=== PATIENT | female | born 1960 | race Caucasian/White ===

== ENCOUNTER 2018-12-11 02:58 | Emergency (ER) | payer SELFPAY ==
[2018-12-11] MEDS ORDERED: PREDNISONE 20 MG TABLET PO ONE (04:20)
[2018-12-11] MEDS ORDERED: IPRATROPIUM/ALBUTEROL 0.5-2.5 MG/3 ML AMPUL NEB ONE (04:20)
[2018-12-11 04:53] LABS: APPEARANCE,URINE CLOUDY; BILIRUBIN,URINE NEGATIVE (NEGATIVE); COLOR,URINE YELLOW; GLUCOSE, URINE NEGATIVE (NEGATIVE); KETONES,URINE NEGATIVE (NEGATIVE); LEUKOCYTE ESTERASE,URINE NEGATIVE (NEGATIVE); NITRITE,URINE NEGATIVE (NEGATIVE); PROTEIN,URINE NEGATIVE (NEGATIVE); URINE SPECIFIC GRAVITY 1.009; UROBILINOGEN,URINE NEGATIVE mg/dL (<2.0)
--- NOTE | 2018-12-11 04:58 | RADIOLOGY REPORT (SQ) ---
EXAM DESCRIPTION: X-ray two view chest. CLINICAL HISTORY: 58 years Female, sob COMPARISON: None. TECHNIQUE: PA and Lateral views of the chest performed on 12/11/2018 at 4:41 AM FINDINGS: The lungs are well expanded and are clear. The costophrenic sulci are clear. There is no evidence of a pneumothorax. The cardiac silhouette is normal in size. The mediastinal contours are normal. No acute osseous abnormalities are identified. No focal soft tissue abnormalities are identified. IMPRESSION: No evidence of acute intrathoracic disease.
[2018-12-11] MEDS ORDERED: DOXYCYCLINE HYCLATE 100 MG TABLET PO ONE ×2 (06:39→07:01)
--- NOTE | 2018-12-11 06:46 | ER Document Report ---
ED General - General Chief Complaint: Shortness Of Breath Stated Complaint: DIFFICULTY BREATHING Time Seen by Provider: 12/11/18 04:20 Notes: Patient is a 58-year-old female presents to the emergency department for generalized cough, congestion, increased shortness of breath for the last couple of days. Patient states she does have asthma and COPD. States she ran out of her albuterol inhaler about 5 days ago. Patient states she also typically is on oxygen at home only at night 1 L/min. States she ran out of oxygen. Patient states she recently moved to the area and does not have a primary care provider. Patient is also complaining of generalized lower back pain. Patient states when she has lower back pain she typically has a urinary tract infection. Patient is denying any abdominal pain, nausea, vomiting, fevers, chest pain. TRAVEL OUTSIDE OF THE [place] IN LAST 30 DAYS: No - Related Data Allergies/Adverse Reactions: citalopram Allergy (Verified 12/11/18 04:25) fexofenadine [From Kiara] Allergy (Verified 12/11/18 04:25) trazodone Allergy (Verified 12/11/18 04:25) Past Medical History - General Information source: Patient - Social History Smoking Status: Current Some Day Smoker Frequency of alcohol use: Occasional Drug Abuse: None Family History: Reviewed & Not Pertinent Patient has suicidal ideation: No Patient has homicidal ideation: No Pulmonary Medical History: Reports: Hx Asthma, Hx COPD Renal/ Medical History: Denies: Hx Peritoneal Dialysis Review of Systems - Review of Systems Constitutional: denies: Fever EENT: See HPI Cardiovascular: See HPI Respiratory: See HPI Gastrointestinal: No symptoms reported Genitourinary: denies: Burning, Dysuria, Frequency Female Genitourinary: No symptoms reported Musculoskeletal: See HPI Skin: No symptoms reported Hematologic/Lymphatic: No symptoms reported Neurological/Psychological: No symptoms reported Physical Exam - Vital signs Vitals: Temp Pulse Resp BP Pulse Ox 97.8 F 66 22 H 104/60 92 12/11/18 03:11 12/11/18 03:11 12/11/18 03:11 12/11/18 03:11 12/11/18 03:11 - Notes Notes: GENERAL: Alert, interacts well. No acute distress. HEAD: Normocephalic, atraumatic. EYES: Pupils equal, round, and reactive to light. Extraocular movements intact. ENT: Oral mucosa moist, tongue midline. Nares patent, TM's intact, nonerythematous, nonbulging bilaterally. Pharynx within normal limits, no palatal petechiae noted NECK: Full range of motion. Supple. Trachea midline. No lymphadenopathy appreciated LUNGS: Clear to auscultation bilaterally apices, no discernible wheezes, rales, or rhonchi. Bilateral bases diminished scant expiratory wheeze noted bilaterally. No respiratory distress. 96% on room air HEART: Regular rate and rhythm. No murmur ABDOMEN: Soft, non-tender. Non-distended. Bowel sounds present in all 4 quadrants. EXTREMITIES: Moves all 4 extremities spontaneously. No edema, normal radial and dorsalis pedis pulses bilaterally. No cyanosis. BACK: no cervical, thoracic, lumbar midline tenderness. No saddle anesthesia, normal distal neurovascular exam. No CVA tenderness noted bilaterally NEUROLOGICAL: Alert and oriented x3. Normal speech. cranial nerves II through XII grossly intact PSYCH: Normal affect, normal mood. SKIN: Warm, dry, normal turgor. No rashes or lesions noted. Course - Re-evaluation Re-evalutation: 12/11/18 06:45 Chest X-Ray 12/11/18 04:20 IMPRESSION: No evidence of acute intrathoracic disease. Laboratory 12/11/18 04:19 Urine Color YELLOW Urine Appearance CLOUDY Urine pH 6.0 Ur Specific [place] 1.009 Urine Protein NEGATIVE Urine Glucose (UA) NEGATIVE Urine Ketones NEGATIVE Urine Blood NEGATIVE Urine Nitrite NEGATIVE Urine Bilirubin NEGATIVE Urine Urobilinogen NEGATIVE Ur Leukocyte Esterase NEGATIVE Urine WBC (Auto) 5 Urine RBC (Auto) 1 U Hyaline Cast (Auto) 1 Urine Bacteria (Auto) TRACE Squamous Epi Cells Auto 7 Urine Mucus (Auto) RARE Urine Ascorbic Acid NEGATIVE Patient's urine shows no signs of infection. Patient's chest x-ray shows no signs of pneumonia, pneumothorax, rib fracture. Patient states she overall feels a lot better after breathing treatments in the emergency department. Discussed use of albuterol, steroids, antibiotics for continued care. Discussed following up with [facility] or [facility] until her insurance comes through. Patient voices understanding, stable for discharge - Vital Signs Vital signs: Temp Pulse Resp BP Pulse Ox 97.8 F 66 16 99/57 L 95 12/11/18 03:11 12/11/18 03:11 12/11/18 06:02 12/11/18 06:02 12/11/18 06:02 Discharge - Discharge Clinical Impression: COPD exacerbation Condition: Stable Disposition: HOME, SELF-CARE Instructions: Chronic Obstructive Lung Disease ([facility]) Additional Instructions: As we discussed you have been seen and treated in the emergency department for an exacerbation of your COPD. Due to your history of lung infections I am going to treat with antibiotics. Please also make sure you take your albuterol as prescribed. Please also make sure you take steroids as prescribed. Your urine shows no signs of infection. Please make sure you stay well-hydrated. Please make sure you follow-up with a primary care provider or [facility] for continued care. Please return to the emergency room for any other concerns. Prescriptions: Albuterol Sulfate [Proair HFA Inhalation Aerosol 8.5 gm MDI] 2 puff IH Q4H PRN #1 mdi PRN Reason: Doxycycline Hyclate 100 mg PO BID #14 capsule Prednisone [Deltasone 20 mg Tablet] 3 tab PO DAILY 5 Days tablet Forms: Smoking Cessation Education Referrals: [facility] [Provider Group] - Follow up as needed [facility] [Provider Group] - Follow up as needed ZACHERY JALLOH MD [ACTIVE STAFF] - Follow up as needed
[2018-12-11 07:09] VITALS: BP 107/72
--- NOTE | 2018-12-11 19:25 | EKG REPORT ---
SEVERITY:- NORMAL ECG - SINUS RHYTHM : Confirmed by: Fabi Ybarra MD 11-Dec-2018 19:24:48
== END 2018-12-11 07:24 | disposition home or self-care (01) ==
LOC: ER 02:58
DX: J44.1 Chronic obstructive pulmonary disease with (acute) exacerbation (principal); T48.6X6A Underdosing of antiasthmatics, initial encounter; T41.5X6A Underdosing of therapeutic gases, initial encounter; Z91.128 Patient's intentional underdosing of medication regimen for other reason; Z91.14 Patient's other noncompliance with medication regimen; R05 Cough; R06.02 Shortness of breath; M54.5 Low back pain; F17.200 Nicotine dependence, unspecified, uncomplicated; Z87.440 Personal history of urinary (tract) infections; Z88.1 Allergy status to other antibiotic agents; Z88.8 Allergy status to other drugs, medicaments and biological substances
CPT/HCPCS: 93005; 94640; 99285; 87086; 81001; 71046; 93010; J7512; J7620

== ENCOUNTER → 2019-11-22 | Outpatient (CLI) | payer MEDICARE, MEDICAID ==
[2019-11-22 13:25] VITALS: BP 110/51
--- NOTE | 2019-11-22 13:25 | ER RDC ASSESSMENT REPORT ---
Intake - In the Last 14 days Have you traveled outside [place]?: No Have you been in close contact with someone CONFIRMED: No Worked in Healthcare?: No - Symptoms Subjective Fever(Douglas feverish): No Chills: No Muscule Aches: Yes Runny Nose: Yes Sore Throat: Yes Cough (New or worsening chronic cough): Yes Shortness of breath: Yes Nausea or Vomiting: No Headache: No Abdominal Pain: No Diarrhea(3 or more loose stools in last 24 hours): No - Do you have any of the following Chronic lung disease: Asthma or emphysema or COPD: Yes Chronic Lung Disease Comment: History of COPD Cystic Fibrosis: No Diabetes: No High Blood Pressure: No Cardiovascular Disease: No Chronic Kidney Disease: No Chronic Liver Disease: No Chronic blood disorder like Sickle Cell Disease: No Weak immune system due to disease or medication: No Neurologic condition that limits movement: No Developmental delay - Moderate to Severe: No Recent (within past 2 weeks) or current : No --If current: Trimester: 2nd Morbid Obesity (>100 pounds over ideal weight): No Obesity Comment: Height 5 feet 4 inches weight 149 pounds Other Comment: History of depression - Objective Temperature: 97.4 F Pulse Rate: 79 Respiratory Rate: 20 Blood Pressure: 110/51 O2 Sat by Pulse Oximetry: 93 Objective: Given above, testing performed: If Testing Performed: Test Specimen Type Sent to General - General Information source: Patient Notes: Patient here at [facility] for COVID testing. reports sent for screening per computer systems software architect. Patient has been treated for recent exacerbation of COPD and the last few days has been on prednisone which has improved breathing. Respiratory illness symptoms started November 07. reports computer systems software architect won't see patient in office until tested. - Related Data Allergies/Adverse Reactions: citalopram Allergy (Verified 12/11/18 04:25) fexofenadine [From Kiara] Allergy (Verified 12/11/18 04:25) trazodone Allergy (Verified 12/11/18 04:25) Past Medical History - Social History Smoking Status: Former Smoker - Reports has recently stopped and asked how much reports'" Not that much" Family History: Reviewed & Not Pertinent Pulmonary Medical History: Reports: Hx Asthma, Hx COPD Renal/ Medical History: Denies: Hx Peritoneal Dialysis Physical Exam - General General appearance: Appears well, Alert In distress: None Notes: PHYSICAL EXAMINATION: GENERAL: Well-appearing and in no acute distress. HEAD: Atraumatic, normocephalic. EYES: sclera anicteric, conjunctiva are normal. ENT: nares patent. Moist mucous membranes. NECK: Normal range of motion, supple without lymphadenopathy LUNGS: CTAB and equal. No wheezes rales or rhonchi. Resp even and unlabored. Lung sounds clear. HEART: Regular rate and rhythm without murmurs ABDOMEN: Soft, nontender, normal bowel sounds, no guarding. EXTREMITIES: No cyanosis. NEUROLOGICAL: Normal speech. PSYCH: Normal mood, normal affect. SKIN: Warm, Dry, normal turgor, Diagnostic Results Laboratory Results: Patient instructed on negative rapid strep and negative rapid flu. Pending strep culture. Pending COVID testing results. Patient provided instructions regarding COVID to include: As a person under investigation for Covid 19, the [facility], division of public health advises you to adhere to the following guidance until your test results are reported to you. If your test result is positive, you will receive additional information from your provider and your local health department at that time. Remain at home until you are cleared by the health provider or public health authorities. Keep a log of visitors to your home, notify any visitors to your home of your is olation status. If you plan to move to a new address or leave the count includes the [facility], notify the local health department in your [facility]. Call your doctor or seek care if you have an urgent medical need. Before seeking medical care, call ahead to get instructions from the provider before arriving at the medical office clinic or hospital. Notify them that you are being tested for the virus that causes Covid 19 so that arrangements can be made, as necessary, to prevent transmission to others in the healthcare setting. Next, notify the local health department in your county. If a medical emergency arises and you need to call 911, inform the first responders that you are being tested for the virus that causes Covid 19. Next, notify the local health department in your county. Patient Education/Counseling Counseling/Education: Patient presents with upper respiratory symptoms worrisome for possible Covid 19. Patient does not have emergency worring symptoms such as difficulty breathing, shortness of breath, chest pain, pressure, confusion or cyanosis. Patient appears suitable for discharge. Patient instructed to follow up with PCP today. Instructed to go to ED for persistent or worsening symptoms. Patient's vital signs are stable and patient is nontoxic in appearance. Good return precautions have been discussed with patient, patient verbalized understanding and is agreeable with discharge plan of care at this time. RDC Discharge - Discharge Clinical Impression: COVID - 19 SCREENING Upper respiratory infection Qualifiers: URI type: unspecified URI Qualified Code(s): J06.9 - Acute upper respiratory infection, unspecified Condition: Stable Disposition: Home; Selfcare
[2019-11-22 14:46] LABS: A TYPE INFLUENZA AG NEGATIVE (NEGATIVE); B INFLUENZA AG NEGATIVE (NEGATIVE)
== END ==
LOC: RDC 12:42
PROVIDERS: ATTEND Nurse Practitioner Family
DX: Z20.828 Contact with and (suspected) exposure to other viral communicable diseases (principal); J06.9 Acute upper respiratory infection, unspecified; J02.9 Acute pharyngitis, unspecified; R06.02 Shortness of breath; R05 Cough; M79.10 Myalgia, unspecified site; R09.89 Other specified symptoms and signs involving the circulatory and respiratory systems; J44.9 Chronic obstructive pulmonary disease, unspecified; Z88.8 Allergy status to other drugs, medicaments and biological substances; Z87.891 Personal history of nicotine dependence
CPT/HCPCS: 87070; 87880; 87804; U0003; 87635; 99211

== ENCOUNTER 2019-12-08 01:29 | Inpatient (IN) | payer MEDICARE, MEDICAID ==
[2019-12-08 03:41] LABS: APPEARANCE,URINE SLIGHTLY-CLOUDY; BILIRUBIN,URINE NEGATIVE (NEGATIVE); COLOR,URINE YELLOW; GLUCOSE, URINE NEGATIVE (NEGATIVE); KETONES,URINE NEGATIVE (NEGATIVE); LEUKOCYTE ESTERASE,URINE LARGE (NEGATIVE); NITRITE,URINE NEGATIVE (NEGATIVE); PROTEIN,URINE NEGATIVE (NEGATIVE); URINE SPECIFIC GRAVITY 1.002; UROBILINOGEN,URINE NEGATIVE mg/dL (<2.0)
[2019-12-08 03:47] LABS: ABSOLUTE BASOPHILS # (AUTO) 0.1 10^3/uL (0.0-0.2); ABSOLUTE EOSINOPHILS # (AUTO) 0.3 10^3/uL (0.0-0.6); ABSOLUTE LYMPHOCYTES (AUTO) 2.2 10^3/uL (0.5-4.7); ABSOLUTE MONOCYTES (AUTO) 0.6 10^3/uL (0.1-1.4); ABSOLUTE NEUT (AUTO) 7.7 10^3/uL (1.7-8.2); BASOPHILS % (AUTO) 0.8 % (0-2); EOSINOPHILS % (AUTO) 2.5 % (0-6); HEMATOCRIT 51.6 % (36.0-47.0); HEMOGLOBIN 17.7 g/dL (12.0-15.5); LYMPHOCYTES % (AUTO) 20.7 % (13-45); MEAN CORPUSCULAR HGB CONC 34.3 g/dL (32.0-36.0); MEAN CORPUSCULAR VOLUME 90 fl (80-97); MONOCYTES % (AUTO) 5.2 % (3-13); PLATELET COUNT 300 10^3/uL (150-450); RED BLOOD COUNT 5.71 10^6/uL (3.72-5.28); RED CELL DISTRIBUTION WIDTH 13.9 % (11.5-14.0); SEGMENTED NEUTROPHILS % (AUTO) 70.8 % (42-78); TOTAL CELLS COUNTED % (AUTO) 100 %; WHITE BLOOD COUNT 10.8 10^3/uL (4.0-10.5)
[2019-12-08 03:59] LABS: ALBUMIN 4.5 g/dL (3.5-5.0); ALKALINE PHOSPHATASE 77 U/L (38-126); ANION GAP 10 (5-19); ASPARTATE AMINO TRANSFERASE 27 U/L (14-36); BILIRUBIN,TOTAL 0.4 mg/dL (0.2-1.3); BLOOD UREA NITROGEN 9 mg/dL (7-20); CALCIUM 9.2 mg/dL (8.4-10.2); CARBON DIOXIDE 28 mmol/L (22-30); CHLORIDE 101 mmol/L (98-107); CREATINE KINASE 241 U/L (30-135); GLUCOSE 84 mg/dL (75-110); POTASSIUM 4.6 mmol/L (3.6-5.0); TOTAL PROTEIN 7.2 g/dL (6.3-8.2)
[2019-12-08 04:11] LABS: CREATINE KINASE MB 3.71 ng/mL (<4.55)
[2019-12-08 04:17] LABS: TROPONIN I < 0.012 ng/mL
[2019-12-08] MEDS ORDERED: CEFTRIAXONE 1 GM/D5W RTU 1 GM/50 ML RTUPB IV ONE (06:45)
[2019-12-08] MEDS ORDERED: NORMAL SALINE 1000 ML 1,000 ML IV ONE (06:45)
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
--- NOTE | 2019-12-08 07:21 | EKG REPORT ---
SEVERITY:- BORDERLINE ECG - SINUS RHYTHM WITHIN NORMAL LIMITS : Confirmed by: Maciel Martínez MD 08-Dec-2019 07:20:53
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
--- NOTE | 2019-12-08 08:26 | RADIOLOGY REPORT (SQ) ---
EXAM DESCRIPTION: CHEST SINGLE VIEW IMAGES COMPLETED DATE/TIME: 12/08/2019 8:06 am REASON FOR STUDY: cough COMPARISON: PA and lateral views of the chest from 12/11/2018. EXAM PARAMETERS: NUMBER OF VIEWS: One view. TECHNIQUE: An AP view of the chest was obtained. RADIATION DOSE: NA LIMITATIONS: None. FINDINGS: LUNGS AND PLEURA: No consolidation, pleural effusion or pneumothorax. MEDIASTINUM AND HILAR STRUCTURES: No mediastinal or hilar contour abnormality. HEART AND VASCULAR STRUCTURES: The cardiac silhouette and pulmonary vasculature are within normal blakely its. BONES: No acute findings. HARDWARE: None in the chest. OTHER: No other finding. IMPRESSION: No acute cardiopulmonary process. TECHNICAL DOCUMENTATION: JOB ID: [id number] 2010 [employer]- All Rights Reserved Reading location - IP/workstation name: [email or web address]
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
[2019-12-08] MEDS ORDERED: AZITHROMYCIN 250 MG TABLET PO ONE (09:25)
[2019-12-08] MEDS ORDERED: METHYLPREDNISOLONE INJ 125 MG/2 ML SDV IV ONE (09:25)
[2019-12-08] MEDS ORDERED: ALBUTEROL SULFATE 0.083% NEB 2.5 MG/3 ML AMPUL NEB ONE (09:30)
[2019-12-08] MEDS ORDERED: MORPHINE SULFATE 10 MG/ML INJ IV ONE (10:22)
[2019-12-08] MEDS ORDERED: PROMETHAZINE HCL INJ 25 MG/1 ML VIAL IV PRN (12:41)
[2019-12-08] MEDS ORDERED: MAG HYDROX/AL HYDROX/SIMETH SUSP 30 ML UDCUP PO PRN (12:41)
[2019-12-08] MEDS ORDERED: ALBUTEROL SULFATE 0.083% NEB 2.5 MG/3 ML AMPUL NEB PRN (12:41)
[2019-12-08] MEDS ORDERED: DOCUSATE SODIUM 100 MG CAPSULE PO PRN (12:41)
[2019-12-08] MEDS ORDERED: MAGNESIUM HYDROXIDE SUSP 30 ML UDCUP PO PRN (12:41)
[2019-12-08] MEDS ORDERED: LORAZEPAM INJ 2 MG/1 ML VIAL IV PRN (12:49)
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
[2019-12-08] MEDS: IPRATROPIUM/ALBUTEROL 0.5-2.5 MG/3 ML AMPUL NEB SCH ×2 (14:22→20:38)
[2019-12-08] MEDS: ACETAMINOPHEN 325 MG TABLET PO PRN (14:30)
[2019-12-08] MEDS ORDERED: CITALOPRAM HYDROBROMIDE 20 MG TABLET PO SCH (15:00)
[2019-12-08] MEDS: CLOTRIMAZOLE/BETAMETHASONE DIP CREAM 15 GM TOP SCH (17:07)
[2019-12-08] MEDS: OXYBUTYNIN CHLORIDE 5 MG TABLET PO SCH (17:07)
[2019-12-08] MEDS: KETOROLAC TROMETHAMINE INJ/PF 30 MG/1 ML SDV IV PRN (19:49)
[2019-12-08] MEDS: BUDESONIDE NEB 0.5 MG/2 ML AMPUL NEB SCH (20:38)
[2019-12-08] MEDS: DOXYCYCLINE HYCLATE 100 MG TABLET PO SCH (21:03)
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
[2019-12-08] MEDS ORDERED: TRAZODONE HCL 50 MG TABLET PO SCH (22:00)
[2019-12-08] MEDS ORDERED: DIVALPROEX SODIUM 250 MG TAB.SR.24H PO ONE (23:00)
[2019-12-08] MEDS ORDERED: BUSPIRONE HCL 10 MG TABLET PO ONE (23:15)
[2019-12-08] MEDS ORDERED: TRAZODONE HCL 50 MG TABLET PO PRN (23:30)
[2019-12-09] MEDS: ACETAMINOPHEN 325 MG TABLET PO PRN ×2 (00:23→13:28)
[2019-12-09] MEDS: IPRATROPIUM/ALBUTEROL 0.5-2.5 MG/3 ML AMPUL NEB SCH ×2 (02:43→07:47)
[2019-12-09] MEDS: KETOROLAC TROMETHAMINE INJ/PF 30 MG/1 ML SDV IV PRN ×2 (05:27→13:29)
[2019-12-09 05:32] LABS: ABSOLUTE MONOCYTES (AUTO) 0.6 10^3/uL (0.1-1.4); ABSOLUTE NEUT (AUTO) 11.6 10^3/uL (1.7-8.2); BASOPHILS % (AUTO) 0.3 % (0-2); HEMOGLOBIN 14.8 g/dL (12.0-15.5); LYMPHOCYTES % (AUTO) 7.3 % (13-45); MEAN CORPUSCULAR HEMOGLOBIN 30.8 pg (27.0-33.4); MEAN CORPUSCULAR HGB CONC 33.7 g/dL (32.0-36.0); MEAN CORPUSCULAR VOLUME 92 fl (80-97); MONOCYTES % (AUTO) 4.2 % (3-13); PLATELET COUNT 239 10^3/uL (150-450); RED BLOOD COUNT 4.81 10^6/uL (3.72-5.28); RED CELL DISTRIBUTION WIDTH 13.7 % (11.5-14.0); SEGMENTED NEUTROPHILS % (AUTO) 88.2 % (42-78); TOTAL CELLS COUNTED % (AUTO) 100 %; WHITE BLOOD COUNT 13.2 10^3/uL (4.0-10.5)
[2019-12-09 05:55] LABS: ANION GAP 8 (5-19); BLOOD UREA NITROGEN 19 mg/dL (7-20); CALCIUM 8.8 mg/dL (8.4-10.2); CARBON DIOXIDE 25 mmol/L (22-30); CHLORIDE 104 mmol/L (98-107); CHOLESTEROL 162.85 mg/dL (0-200); GLUCOSE 151 mg/dL (75-110); POTASSIUM 4.5 mmol/L (3.6-5.0); TRIGLYCERIDES 62 mg/dL (<150)
[2019-12-09] MEDS ORDERED: PANTOPRAZOLE SODIUM 40 MG TABLET.DR PO SCH (06:00)
[2019-12-09 06:05] LABS: DIRECT LDL 81 mg/dL (<100)
[2019-12-09] MEDS: BUDESONIDE NEB 0.5 MG/2 ML AMPUL NEB SCH (07:48)
[2019-12-09] MEDS: DOXYCYCLINE HYCLATE 100 MG TABLET PO SCH (09:32)
[2019-12-09] MEDS: OXYBUTYNIN CHLORIDE 5 MG TABLET PO SCH ×2 (09:32→17:16)
[2019-12-09] MEDS: CLOTRIMAZOLE/BETAMETHASONE DIP CREAM 15 GM TOP SCH ×2 (09:32→17:14)
[2019-12-09] MEDS: DIVALPROEX SODIUM 250 MG TAB.SR.24H PO SCH ×2 (09:32→17:16)
[2019-12-09] MEDS: BUSPIRONE HCL 10 MG TABLET PO SCH ×2 (09:32→17:13)
[2019-12-09] MEDS ORDERED: CEFTRIAXONE 1 GM/D5W RTU 1 GM/50 ML RTUPB IV SCH (10:00)
[2019-12-09] MEDS ORDERED: CITALOPRAM HYDROBROMIDE 20 MG TABLET PO SCH (10:00)
[2019-12-09] MEDS ORDERED: ENOXAPARIN SODIUM INJ 40 MG/0.4 ML DISP.SYRIN SUBCUT SCH (10:00)
[2019-12-09] MEDS ORDERED: (PENDING PHARMACY ID) (Citalopram Hydrobromide [Citalopram Hbr] 40 MG) PO SCH (10:00)
[2019-12-09] MEDS ORDERED: IPRATROPIUM/ALBUTEROL 0.5-2.5 MG/3 ML AMPUL NEB PRN (11:50)
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
[2019-12-09] MEDS ORDERED: FLUTICASONE/UMECLIDIN/VILANTER 100-62.5-25 MCG/DOSE IH SCH (13:00)
[2019-12-09] MEDS ORDERED: IPRATROPIUM/ALBUTEROL 0.5-2.5 MG/3 ML AMPUL NEB ONE (15:56)
[2019-12-09 17:18] VITALS: BP 125/69
--- NOTE | 2019-12-09 20:01 | Left Against Medical Advice ---
Against Medical Advice Admission Date/Time: 12/08/19 09:58 Primary Care Provider: SHERLYN CARTY MD Date of Patient Emigration: 12/09/19 - Summary: Summary: Please see Admission and Progress Notes as well. FLORA CUELLAR is a 59 F, who LEFT AGAINST MEDICAL ADVICE. The Patient was admitted on 12/08/19 09:58. I was contacted by her nurse that the patient was ready to leave AMA at 19:59 on 12/09/2019. The patient's vital signs were stable and she was determined to leave due to her being upset over changes in her medications. She was advised that she was leaving AGAINST MEDICAL ADVICE and assume the risks and responsibilities for such. Patient signed the hospital AMA discharge form.
== END 2019-12-09 20:40 | disposition left against medical advice (07) | DRG 190 ==
LOC: ER 01:29 → EH 09:58 → 4W 11:11 → 4S 12-09 18:41
PROVIDERS: ADMIT Hospitalist; ATTEND Hospitalist
DX: J44.1 Chronic obstructive pulmonary disease with (acute) exacerbation (principal); J96.21 Acute and chronic respiratory failure with hypoxia; N30.00 Acute cystitis without hematuria; F41.8 Other specified anxiety disorders; B35.3 Tinea pedis; F31.9 Bipolar disorder, unspecified; S10.83XA Contusion of other specified part of neck, initial encounter; S40.022A Contusion of left upper arm, initial encounter; S40.021A Contusion of right upper arm, initial encounter; S90.02XA Contusion of left ankle, initial encounter; S90.32XA Contusion of left foot, initial encounter; F17.210 Nicotine dependence, cigarettes, uncomplicated; Y04.2XXA Assault by strike against or bumped into by another person, initial encounter; Y93.89 Activity, other specified; Y92.89 Other specified places as the place of occurrence of the external cause; Z79.51 Long term (current) use of inhaled steroids; Z79.899 Other long term (current) drug therapy; R07.89 Other chest pain
CPT/HCPCS: 36415; 71045; 72040; 74176; 80048; 80053; 80061; 81001; 82550; 82553; 83735; 84484; 85025; 87086; 87635; 93005; 93010; 94640; 96361; 96365; 96375; 99285; J0696; J1650; J1885; J2270; J2930; J3490; J7030; J7620

== ENCOUNTER 2020-02-20 00:18 | Inpatient (IN) | payer MEDICARE, MEDICAID ==
[2020-02-20] MEDS ORDERED: IPRATROPIUM/ALBUTEROL 0.5-2.5 MG/3 ML AMPUL NEB ONE ×2 (00:32→00:38)
[2020-02-20] MEDS ORDERED: LORAZEPAM INJ 2 MG/1 ML VIAL IV ONE (00:38)
--- NOTE | 2020-02-20 00:39 | ER Document Report ---
ED Respiratory Problem - General Chief Complaint: Shortness Of Breath Stated Complaint: SHORTNESS OF BREATH Time Seen by Provider: 02/20/20 00:37 Notes: Patient is a 59-year-old female that comes emergency department by EMS for chief complaint of difficulty breathing. Patient has a history of COPD and is on 2 L nasal cannula at night only. Patient was 83% on 2 L nasal cannula on arrival with EMS. EMS gave 2 duo nebs, 125 mg of Solu-Medrol, 2 g of magnesium in route. Patient denies fevers, chest pain, vomiting, or any other complaints e xcept the difficulty breathing. Patient has never been intubated. Patient denies recent hospitalization. Patient denies any cardiac or pulmonary history otherwise. Patient is a current intermittent smoker, has a history of hysterectomy and skin cancer removal. TRAVEL OUTSIDE OF THE [place] IN LAST 30 DAYS: No - Related Data Allergies/Adverse Reactions: No Known Drug Allergies Allergy (Verified 02/20/20 01:33) Past Medical History - General Information source: Patient - Social History Smoking Status: Current Every Day Smoker Frequency of alcohol use: Heavy - Reportedly former heavy Drug Abuse: None Lives with: Alone Family History: CVA, DM, Other - Kidney disease. Significant history of alcoholism. Pulmonary Medical History: Reports: Hx Asthma, Hx COPD Renal/ Medical History: Denies: Hx Peritoneal Dialysis Malignancy Medical History: Reports: Hx Skin Cancer Psychiatric Medical History: Reports: Hx Depression Past Surgical History: Reports: Hx Hysterectomy, Other - Bladder suspension, excision skin cancer Review of Systems - Review of Systems Constitutional: No symptoms reported EENT: No symptoms reported Cardiovascular: No symptoms reported Respiratory: See HPI Gastrointestinal: No symptoms reported Genitourinary: No symptoms reported Female Genitourinary: No symptoms reported Musculoskeletal: No symptoms reported Skin: No symptoms reported Hematologic/Lymphatic: No symptoms reported Neurological/Psychological: No symptoms reported Physical Exam - Vital signs Vitals: Temp Resp Pulse Ox 97.7 F 39 H 94 02/20/20 00:22 02/20/20 00:22 02/20/20 00:22 - Notes Notes: GENERAL: Patient ill-appearing and in obvious distress HEAD: Normocephalic, atraumatic. EYES: Pupils equal, round, and reactive to light. Extraocular movements intact. ENT: Oral mucosa moist, tongue midline. Oropharynx unremarkable. Airway patent. NECK: Full range of motion. Supple. Trachea midline. No lymphadenopathy. LUNGS: Respiratory distress with labored breathing and tachypnea. With decreased breath sounds with expiratory wheezes throughout. Patient having difficulty speaking in full sentences. HEART: Regular rate and rhythm. No murmur ABDOMEN: Soft, non-tender. Non-distended. EXTREMITIES: Moves all 4 extremities spontaneously. No edema, normal radial and dorsalis pedis pulses bilaterally. No cyanosis. BACK: no cervical, thoracic, lumbar midline tenderness. No saddle anesthesia, normal distal neurovascular exam. Moves all extremities in full range of motion. NEUROLOGICAL: Alert and oriented x3. Normal speech. Cranial nerves II through XII grossly intact. Strength 5/5 in all extremities. PSYCH: Normal affect, normal mood. SKIN: Flushed and slightly diaphoretic Course - Re-evaluation Re-evalutation: Patient initially in respiratory distress, she was immediately transitioned to BiPAP, patient with labored breathing and tachypnea with respirations in the 40s, borderline hypoxia on BiPAP. Patient has decreased breath sounds and expiratory wheezing throughout. Patient has difficulty speaking in full sentences. Patient was placed on an additional DuoNeb. Patient will be closely reevaluated. Patient started to have significant improvement and then had resolution of her respiratory distress on reevaluation. Patient does have some anxiety with the mask and was provided with Ativan with good results. Patient has significant reduction in wheezing now, tachypnea has resolved, she is not hypoxic, she is much improved. CBC unremarkable, chemistry unremarkable, troponin is not elevated, chest x-ray unremarkable. Venous blood gas shows respiratory acidosis which is significant. Evaluation is consistent with COPD exacerbation with acute respiratory failure and hypercarbia. I discussed with patient. Patient sleeping but easily aroused, oriented, appropriate and responsive. Patient will be admitted to the hospital and we will keep her on BiPAP at this time. Patient does state understanding and agreement. Discussed with Dr. Redd. Discussed with Dr. Zimmerman, hospitalist, patient excepted to telemetry full admission. - Vital Signs Vital signs: Temp Pulse Resp BP Pulse Ox 97.8 F 97 19 117/79 96 02/20/20 05:10 02/20/20 05:41 02/20/20 05:41 02/20/20 05:10 02/20/20 05:10 - Laboratory Result Diagrams: 02/20/20 00:27 02/20/20 00:27 Laboratory results interpreted by me: 02/20/20 02/20/20 02/20/20 00:27 00:27 00:27 WBC 11.9 H Absolute Neuts (auto) 9.3 H Seg Neutrophils % 78.3 H VBG pH 7.15 L* VBG pCO2 79.4 H* Sodium 136.3 L BUN 21 H Glucose 150 H Critical Care Note - Critical Care Note Total time excluding time spent on procedures (mins): 35 - Acute respiratory failure, respiratory distress, COPD exacerbation Comments: Please allow 35 minutes of critical care time for evaluation and management of patient with severe respiratory distress, acute on chronic respiratory failure, COPD exacerbation. Interventions including BiPAP, duo nebs, anxiolytics. Time spent performing multiple re-evaluations. Time spent consulting and admitting to the hospital. Discharge - Discharge Clinical Impression: COPD exacerbation, Hypoxia, Respiratory distress, Acute respiratory acidosis, Hypercarbia Condition: Fair Disposition: ADMITTED INPATIENT Admitting Provider: Erasmo (Hospitalist) Unit Admitted: Telemetry
[2020-02-20] MEDS ORDERED: NORMAL SALINE 1000 ML 1,000 ML IV ONE (00:55)
[2020-02-20 00:56] LABS: ABSOLUTE BASOPHILS # (AUTO) 0.1 10^3/uL (0.0-0.2); ABSOLUTE EOSINOPHILS # (AUTO) 0.2 10^3/uL (0.0-0.6); ABSOLUTE LYMPHOCYTES (AUTO) 1.6 10^3/uL (0.5-4.7); ABSOLUTE MONOCYTES (AUTO) 0.7 10^3/uL (0.1-1.4); ABSOLUTE NEUT (AUTO) 9.3 10^3/uL (1.7-8.2); BASOPHILS % (AUTO) 0.9 % (0-2); EOSINOPHILS % (AUTO) 1.5 % (0-6); HEMATOCRIT 46.3 % (36.0-47.0); HEMOGLOBIN 15.2 g/dL (12.0-15.5); LYMPHOCYTES % (AUTO) 13.2 % (13-45); MEAN CORPUSCULAR HGB CONC 32.9 g/dL (32.0-36.0); MEAN CORPUSCULAR VOLUME 94 fl (80-97); MONOCYTES % (AUTO) 6.1 % (3-13); PLATELET COUNT 303 10^3/uL (150-450); RED BLOOD COUNT 4.92 10^6/uL (3.72-5.28); RED CELL DISTRIBUTION WIDTH 13.8 % (11.5-14.0); SEGMENTED NEUTROPHILS % (AUTO) 78.3 % (42-78); TOTAL CELLS COUNTED % (AUTO) 100 %; WHITE BLOOD COUNT 11.9 10^3/uL (4.0-10.5)
[2020-02-20 00:59] LABS: VENOUS BLOOD BASE EXCESS -4.2 mmol/L
--- NOTE | 2020-02-20 01:26 | RADIOLOGY REPORT (SQ) ---
EXAM DESCRIPTION: XR CHEST 1 VIEW COMPLETED DATE/TME: 02/20/2020 00:37 CLINICAL HISTORY: 59 years, Female, hypoxia, difficulty breathing COMPARISON: 12/08/2019 chest NUMBER OF VIEWS: 1 TECHNIQUE: Portable chest LIMITATIONS: None. FINDINGS: Heart size is normal. Lungs are clear. No pneumothorax IMPRESSION: No acute cardiopulmonary process copyright 2010 [facility] [employer]- All Rights Reserved
[2020-02-20 01:33] LABS: ALBUMIN 4.5 g/dL (3.5-5.0); ALKALINE PHOSPHATASE 87 U/L (38-126); ANION GAP 8 (5-19); ASPARTATE AMINO TRANSFERASE 33 U/L (14-36); BILIRUBIN,TOTAL 0.5 mg/dL (0.2-1.3); BLOOD UREA NITROGEN 21 mg/dL (7-20); CALCIUM 8.7 mg/dL (8.4-10.2); CARBON DIOXIDE 26 mmol/L (22-30); CHLORIDE 102 mmol/L (98-107); GLUCOSE 150 mg/dL (75-110); POTASSIUM 4.5 mmol/L (3.6-5.0); TOTAL PROTEIN 7.3 g/dL (6.3-8.2)
[2020-02-20 01:39] LABS: NT PRO BNP 99 pg/mL (<125)
[2020-02-20 01:40] LABS: VENOUS BLOOD PH 7.15 (7.30-7.42)
[2020-02-20 01:41] LABS: TROPONIN I < 0.012 ng/mL; VENOUS BLOOD PCO2 79.4 mmHg (35-63)
[2020-02-20] MEDS ORDERED: PROMETHAZINE HCL INJ 25 MG/1 ML VIAL IV PRN (03:30)
[2020-02-20] MEDS ORDERED: LEVALBUTEROL HCL NEB 0.63 MG/3 ML AMPUL NEB PRN (03:30)
[2020-02-20] MEDS ORDERED: MAGNESIUM HYDROXIDE SUSP 30 ML UDCUP PO PRN (03:30)
[2020-02-20] MEDS ORDERED: MAG HYDROX/AL HYDROX/SIMETH SUSP 30 ML UDCUP PO PRN (03:30)
[2020-02-20] MEDS ORDERED: ACETAMINOPHEN 325 MG TABLET PO PRN (03:37)
[2020-02-20] MEDS ORDERED: MORPHINE SULFATE 10 MG/ML INJ IV PRN ×2 (03:37→10:59)
[2020-02-20] MEDS ORDERED: LEVOFLOXACIN 750 MG/D5W RTU 750 MG/150 ML RTUPB IV SCH (04:00)
[2020-02-20 04:01] LABS: ARTERIAL BLOOD BASE EXCESS -3.8 mmol/L; ARTERIAL BLOOD FIO2 32%; ARTERIAL BLOOD H2CO3 1.64 mmol/L (1.05-1.35); ARTERIAL BLOOD O2 SATURATION 92.7 % (94-98); ARTERIAL BLOOD PCO2 54.4 mmHg (35-45); ARTERIAL BLOOD PH 7.26 (7.35-7.45); ARTERIAL BLOOD PO2 74.7 mmHg (80-100); ARTERIAL BLOOD TOTAL CO2 25.6 mmol/L (21-25)
--- NOTE | 2020-02-20 06:42 | PDOC H&P ---
History of Present Illness Admission Date/PCP: 02/20/2020 02:53 SHERLYN CARTY MD Patient complains of: Dyspnea History of Present Illness: FLORA CUELLAR is a 59 year old female with a 2-day history of dyspnea. She admits the gradual onset of dyspnea over the last 2 days until the evening of 02/19/2020 when he dramatically developed severe dyspnea and summoned mass. She denies associated or accompanying signs and symptoms. She admits prior similar episodes related to her COPD. She has not identified any aggravating or ameliorating factors for her dyspnea. She had begun using her oxygen at 2 L/min via nasal cannula at home prior to calling EMS and was noted by EMS to have an O2 sat of 83% upon their arrival. She received DuoNeb nebulizer therapies x2, Solu-Medrol 125 mg IV x1 and magnesium sulfate 2 g IV x1 in the ambulance en route to the hospital. In the emergency room she was found to be hypoxic and was very labored in her breathing requiring BiPAP to maintain an adequate oxygen saturation. She was given additional nebulizer treatments and improved but still needed BiPAP support. She was subsequently admitted to the hospital for further evaluation and treatment. Past Medical History Cardiac Medical History: Denies: Atrial Fibrillation, Coronary Artery Disease, DVT, Hyperlipidema, Hypertension, Pulmonary Embolism Pulmonary Medical History: Reports: Asthma, Bronchitis, Chronic Obstructive Pulmonary Disease (COPD), Respiratory Failure Denies: Intubation, Pneumonia, Sleep Apnea EENT Medical History: Denies: Cataracts, Ears - Hearing aids Neurological Medical History: Denies: Hemorrhagic CVA, Ischemic CVA, Seizures Endocrine Medical History: Denies: Diabetes Mellitus Type 1, Diabetes Mellitus Type 2, Hyperthyroidism, Hypothyroidism Renal/ Medical History: Denies: Chronic Kidney Disease, Nephrolithiasis Malignancy Medical History: Reports: Skin Cancer GI Medical History: Denies: Cirrhosis, Hepatitis, Peptic Ulcer Disease Musculoskeltal Medical History: Denies: Arthritis, Fibromyalgia Skin Medical History: Denies: Eczema, Psoriasis Psychiatric Medical History: Reports: Depression, Tobacco Dependency Denies: Alcohol Dependency, Substance Abuse Traumatic Medical History: Reports: None Hematology: Denies: Anemia, Bleeding Tendencies Infectious Medical History: Reports: None Past Surgical History Past Surgical History: Reports: Hysterectomy, Other - Urinary bladder suspension, skin cancer excision Social History Information Source: Patient Lives with: Family Smoking Status: Current Some Day Smoker Electronic Cigarette use?: No Frequency of Alcohol Use: Social - Patient reports 2-3 beers once or twice a week Hx Recreational Drug Use: Yes Drugs: Marijuana Hx Prescription Drug Abuse: No - Advance Directive Resuscitation Status: Full Code Surrogate healthcare decision maker:: Stephy Ramos Family History Family History: CVA, DM, Malignancy, Other - Kidney disease. Alcoholism. Parental Family History Reviewed: Yes Children Family History Reviewed: No Sibling(s) Family History Reviewed.: Yes Medication/Allergy Home Medications: Albuterol Sulfate [Proair Hfa Inhalation Aerosol 8.5 gm Mdi] 2 puff IH Q4 PRN 02/20/20 Albuterol Sulfate [Ventolin 0.083% Neb 2.5 mg/3 ml Ampul] 1 vial NEB Q4 PRN 02/20/20 Allergies/Adverse Reactions: No Known Drug Allergies Allergy (Verified 02/20/20 01:33) Review of Systems Constitutional: ABSENT: chills, fever(s) Eyes: ABSENT: visual disturbances, other - Eye pain Ears: ABSENT: hearing changes, other - Ear pain Nose, Mouth, and Throat: ABSENT: headache(s), sore throat Cardiovascular: ABSENT: chest pain, palpitations Respiratory: PRESENT: as per HPI, dyspnea. ABSENT: cough Gastrointestinal: ABSENT: abdominal pain, constipation, diarrhea, nausea, vomiting Musculoskeletal: ABSENT: joint swelling, muscle weakness Integumentary: ABSENT: pruritus, rash Neurological: ABSENT: confusion, convulsions, focal weakness, memory loss, syn cope Psychiatric: ABSENT: anxiety, depression Endocrine: ABSENT: cold intolerance, heat intolerance Hematologic/Lymphatic: ABSENT: easy bleeding, easy bruising Allergic/Immunologic: ABSENT: seasonal rhinorrhea Physical Exam Vital Signs: Temp Pulse Resp BP Pulse Ox 97.7 F 118 H 22 H 118/66 95 02/20/20 00:36 02/20/20 00:57 02/20/20 02:30 02/20/20 02:30 02/20/20 02:30 Intake & Output 02/18/20 02/19/20 02/20/20 23:59 23:59 23:59 Intake Total 1000 Balance 1000 Weight 72.4 kg General appearance: PRESENT: cooperative, mild distress - Due to dyspnea, other - On BiPAP at the time of my exam Head exam: ABSENT: atraumatic, normocephalic Eye exam: PRESENT: conjunctiva pink. ABSENT: conjunctival injection, scleral i cterus Ear exam: PRESENT: normal external ear exam. ABSENT: bleeding, drainage Mouth exam: PRESENT: neck supple. ABSENT: dry mucosa Neck exam: ABSENT: thyromegaly, tracheal deviation Respiratory exam: PRESENT: accessory muscle use, decreased breath sounds - Mildly decreased breath sounds throughout all pop with poor air motion, prolonged expiratory phas - Moderately prolonged expiratory phase in all pop, symmetrical, wheezes - Minimal expiratory wheezes in all pop due to poor air movement, other - On BiPAP at time of exam Cardiovascular exam: PRESENT: RRR. ABSENT: clicks, gallop, rubs Pulses: PRESENT: normal radial pulses, normal dorsalis pedis pul Vascular exam: PRESENT: normal capillary refill. ABSENT: pallor GI/Abdominal exam: PRESENT: normal bowel sounds, soft Rectal exam: PRESENT: deferred Extremities exam: ABSENT: joint swelling, pedal edema Musculoskeletal exam: ABSENT: deformity, dislocation Neurological exam: PRESENT: alert, oriented to person, oriented to place, oriented to time, oriented to situation, CN II-XII grossly intact. ABSENT: motor sensory deficit Psychiatric exam: PRESENT: appropriate affect, normal mood Skin exam: PRESENT: dry, intact, warm. ABSENT: jaundice, rash, urticaria Results Laboratory Results: 02/20/20 00:27 02/20/20 00:27 02/20/20 02/20/20 02/20/20 00:27 00:27 00:27 WBC 11.9 H RBC 4.92 Hgb 15.2 Hct 46.3 MCV 94 MCH 31.0 MCHC 32.9 RDW 13.8 Plt Count 303 Seg Neutrophils % 78.3 H VBG pH 7.15 L* VBG pCO2 79.4 H* VBG HCO3 27.0 VBG Base Excess -4.2 Sodium 136.3 L Potassium 4.5 Chloride 102 Carbon Dioxide 26 Anion Gap 8 BUN 21 H Creatinine 0.90 Est GFR ( Amer) > 60 Glucose 150 H Calcium 8.7 Total Bilirubin 0.5 AST 33 Alkaline Phosphatase 87 Total Protein 7.3 Albumin 4.5 02/20/20 00:27 Troponin I < 0.012 NT-Pro-B Natriuret Pep 99 Impressions: Chest X-Ray 02/20/20 00:37 IMPRESSION: No acute cardiopulmonary process copyright 2011 [employer]- All Rights Reserved Assessment and Plan - Diagnosis (1) COPD exacerbation Is this a current diagnosis for this admission?: Yes (2) Acute on chronic respiratory failure with hypoxia and hypercapnia Is this a current diagnosis for this admission?: Yes (3) Leukocytosis Qualifiers: Leukocytosis type: unspecified Qualified Code(s): D72.829 - Elevated white blood cell count, unspecified Is this a current diagnosis for this admission?: Yes (4) Elevated serum glucose Is this a current diagnosis for this admission?: Yes (5) Tobacco use disorder Is this a current diagnosis for this admission?: Yes - Plan Summary Summary: Patient will be admitted to the medical floor where she will receive routine supportive and symptomatic cares. She will receive supplemental oxygen via noninvasive airway pressure support with BiPAP to maintain an adequate oxygen saturation. She will receive an aggressive pulmonary toilet utilizing nebulized Xopenex, Atrovent and Pulmicort. She will receive Solu-Medrol 40 mg IV every 6 hours x3 doses to complete a burst dose Solu-Medrol protocol. She will receive Levaquin 750 mg IV daily. She will use morphine sulfate 2 to 4 mg IV every 2 hours as needed for pain. To use Ativan 1 mg IV every 4 hours as needed for anxiety or restlessness. Smoking cessation is advised and counseled briefly at the bedside. A nicotine replacement patch is available for the patient's use, if desired. CBCs, metabolic profiles and additional laboratory and/or radiographic evaluations will be obtained as needed. Patient will be placed on a regular diet. - Time Time Spent with patient: 15-24 minutes Smoking Cessation Education: 3 to 10 minutes Medications reviewed and adjusted accordingly: Yes Anticipated Discharge Disposition: Home, Self Care Anticipated Discharge Timeframe: within 72 hours - Inpatient Certification Based on my medical assessment, after consideration of the patient's comorbidities, presenting symptoms, or acuity I expect that the services needed warrant INPATIENT care.: Yes I certify that my determination is in accordance with my understanding of Medicare's requirements for reasonable and necessary INPATIENT services [42 CFR 412.3e].: Yes Medical Necessity: Need Close Monitoring Due to Risk of Patient Decompensation, Risk of Complication if Not Cared For in Hospital, Other - Need for oxygen and airway pressure support using BiPAP
[2020-02-20] MEDS: METHYLPREDNISOLONE INJ 40 MG/1 ML SDV IV SCH ×3 (06:50→17:37)
[2020-02-20] MEDS: HEPARIN SOD (PORCINE) 5,000 UNIT/ML 1 ML VIAL SUBCUT SCH ×3 (06:50→23:38)
[2020-02-20] MEDS ORDERED: IPRATROPIUM BROMIDE 0.02% NEB 0.5 MG/2.5 ML AMPUL NEB SCH (08:00)
[2020-02-20] MEDS ORDERED: LEVALBUTEROL HCL NEB 1.25 MG/3 ML AMPUL NEB SCH (08:00)
[2020-02-20] MEDS ORDERED: LEVALBUTEROL HCL NEB 1.25 MG/3 ML AMPUL NEB PRN (08:36)
[2020-02-20] MEDS: LORAZEPAM INJ 2 MG/1 ML VIAL IV PRN ×2 (08:58→13:00)
[2020-02-20] MEDS ORDERED: NORMAL SALINE 1000 ML 1,000 ML IV PRN (10:51)
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
[2020-02-20] MEDS: FAMOTIDINE 20 MG TABLET PO SCH ×2 (11:24→22:16)
[2020-02-20] MEDS: DOCUSATE SODIUM 100 MG CAPSULE PO SCH ×2 (11:24→17:36)
[2020-02-20] MEDS: BACLOFEN 10 MG TABLET PO PRN ×2 (13:00→22:16)
[2020-02-20] MEDS ORDERED: IBUPROFEN 800 MG TABLET PO PRN (13:23)
[2020-02-20] MEDS: LEVALBUTEROL HCL NEB 1.25 MG/3 ML AMPUL NEB SCH ×2 (14:05→21:15)
[2020-02-20] MEDS: IPRATROPIUM BROMIDE 0.02% NEB 0.5 MG/2.5 ML AMPUL NEB SCH ×2 (14:10→21:14)
[2020-02-20] MEDS: OXYCODONE HCL IR 5 MG TABLET PO PRN (18:38)
[2020-02-20] MEDS: NICOTINE 21 MG/24 HR PATCH.TD24 TD PRN (18:38)
[2020-02-20] MEDS: LORAZEPAM 1 MG TABLET PO PRN (19:59)
[2020-02-20] MEDS ORDERED: BUDESONIDE NEB 0.5 MG/2 ML AMPUL NEB SCH (20:00)
[2020-02-20] MEDS ORDERED: CITALOPRAM HYDROBROMIDE 20 MG TABLET PO SCH (22:00)
[2020-02-20] MEDS: MIRTAZAPINE 15 MG TABLET PO SCH (22:16)
[2020-02-20] MEDS: GUAIFENESIN 600 MG TABLET.SA PO SCH (22:16)
[2020-02-20] MEDS: TRAZODONE HCL 50 MG TABLET PO SCH (22:16)
[2020-02-20] MEDS: GUAIFENESIN SYRP 200 MG/10 ML UDC PO PRN (22:16)
[2020-02-20] MEDS: CARBAMAZEPINE 200 MG TABLET PO SCH (23:33)
[2020-02-21] MEDS: IPRATROPIUM BROMIDE 0.02% NEB 0.5 MG/2.5 ML AMPUL NEB SCH ×4 (02:11→19:51)
[2020-02-21] MEDS: LEVALBUTEROL HCL NEB 1.25 MG/3 ML AMPUL NEB SCH ×4 (02:12→19:51)
[2020-02-21] MEDS: HEPARIN SOD (PORCINE) 5,000 UNIT/ML 1 ML VIAL SUBCUT SCH ×3 (05:05→20:59)
[2020-02-21 05:06] LABS: HEMATOCRIT 40.5 % (36.0-47.0); HEMOGLOBIN 13.4 g/dL (12.0-15.5); MEAN CORPUSCULAR HEMOGLOBIN 30.9 pg (27.0-33.4); MEAN CORPUSCULAR HGB CONC 33.2 g/dL (32.0-36.0); MEAN CORPUSCULAR VOLUME 93 fl (80-97); PLATELET COUNT 229 10^3/uL (150-450); RED BLOOD COUNT 4.35 10^6/uL (3.72-5.28); RED CELL DISTRIBUTION WIDTH 13.5 % (11.5-14.0); WHITE BLOOD COUNT 12.8 10^3/uL (4.0-10.5)
[2020-02-21 05:24] LABS: BLOOD UREA NITROGEN 16 mg/dL (7-20); CALCIUM 8.9 mg/dL (8.4-10.2); CARBON DIOXIDE 28 mmol/L (22-30); CHLORIDE 106 mmol/L (98-107); CHOLESTEROL 154.36 mg/dL (0-200); GLUCOSE 142 mg/dL (75-110); POTASSIUM 4.6 mmol/L (3.6-5.0); TRIGLYCERIDES 53 mg/dL (<150)
[2020-02-21 05:35] LABS: DIRECT LDL 48 mg/dL (<100)
[2020-02-21 05:39] LABS: ANION GAP 5 (5-19)
[2020-02-21] MEDS: FLUTICASONE/UMECLIDIN/VILANTER 100-62.5-25 MCG/DOSE IH SCH (10:05)
[2020-02-21] MEDS: LEVOFLOXACIN 750 MG TABLET PO SCH (10:05)
[2020-02-21] MEDS: CARBAMAZEPINE 200 MG TABLET PO SCH ×2 (10:05→20:59)
[2020-02-21] MEDS: DOCUSATE SODIUM 100 MG CAPSULE PO SCH ×2 (10:05→17:28)
[2020-02-21] MEDS: FAMOTIDINE 20 MG TABLET PO SCH ×2 (10:05→20:59)
[2020-02-21] MEDS: GUAIFENESIN 600 MG TABLET.SA PO SCH ×2 (10:05→20:59)
[2020-02-21] MEDS: GUAIFENESIN SYRP 200 MG/10 ML UDC PO PRN ×2 (10:12→20:57)
[2020-02-21] MEDS: BACLOFEN 10 MG TABLET PO PRN ×2 (10:14→20:58)
[2020-02-21 12:39] LABS: APPEARANCE,URINE CLEAR; BILIRUBIN,URINE NEGATIVE (NEGATIVE); COLOR,URINE YELLOW; GLUCOSE, URINE NEGATIVE (NEGATIVE); KETONES,URINE NEGATIVE (NEGATIVE); PROTEIN,URINE NEGATIVE (NEGATIVE); URINE SPECIFIC GRAVITY 1.009; UROBILINOGEN,URINE NEGATIVE mg/dL (<2.0)
[2020-02-21] MEDS: OXYCODONE HCL IR 5 MG TABLET PO PRN ×2 (12:48→19:34)
[2020-02-21] MEDS: LORAZEPAM 1 MG TABLET PO PRN ×2 (12:48→19:34)
[2020-02-21] MEDS ORDERED: ESTROGENS,CONJUGATED 0.625 MG/1 GM 30 GM TUBE VG ONE (13:53)
--- NOTE | 2020-02-21 13:53 | PDOC PROGRESS REPORT ---
Subjective Progress Note for:: 02/21/20 Subjective:: The patient's TSH was 0.06 which is much less than the lower limit normal of 0.47. The patient may very well be hyperthyroid. She still feels that there is mucus to cough up but she cannot cough it up. She still feels dry. She also complains of vaginal itching. Reason For Visit: ACUTE EXACERBATION OF COPD,ACUTE ON CHRONIC RESPIR Physical Exam Vital Signs: Temp Pulse Resp BP Pulse Ox 97.3 F 107 H 20 116/63 93 02/20/20 23:31 02/21/20 08:21 02/21/20 08:21 02/20/20 23:31 02/21/20 08:21 Intake & Output 02/20/20 02/21/20 02/22/20 06:59 06:59 06:59 Intake Total 1247 2046 Balance 1247 2046 Weight 72.4 kg 70.5 kg General appearance: PRESENT: cooperative, mild distress Head exam: PRESENT: atraumatic, normocephalic Ear exam: PRESENT: normal external ear exam. ABSENT: bleeding, drainage Mouth exam: PRESENT: moist, tongue midline Respiratory exam: PRESENT: clear to auscultation cyndi. ABSENT: rales, rhonchi, tachypnea, wheezes Cardiovascular exam: PRESENT: RRR, +S1, +S2. ABSENT: bradycardia, diastolic murmur, irregular rhythm, systolic murmur, tachycardia GI/Abdominal exam: PRESENT: normal bowel sounds, soft. ABSENT: distended, tenderness Rectal exam: PRESENT: deferred Gentrourinary exam: ABSENT: indwelling catheter Extremities exam: PRESENT: full ROM. ABSENT: pedal edema Musculoskeletal exam: PRESENT: ambulatory, normal inspection. ABSENT: deformity, dislocation Neurological exam: PRESENT: alert, awake, oriented to person, oriented to place, oriented to time, oriented to situation, CN II-XII grossly intact. ABSENT: altered, motor sensory deficit Psychiatric exam: PRESENT: anxious, appropriate affect. ABSENT: agitated Focused psych exam: ABSENT: delusional, paranoid, restlessness Skin exam: PRESENT: dry, warm. ABSENT: rash Results Laboratory Results: 02/21/20 04:18 02/21/20 04:18 02/21/20 02/21/20 02/21/20 04:18 04:18 04:18 WBC 12.8 H RBC 4.35 Hgb 13.4 Hct 40.5 MCV 93 MCH 30.9 MCHC 33.2 RDW 13.5 Plt Count 229 Sodium 138.3 Potassium 4.6 Chloride 106 Carbon Dioxide 28 Anion Gap 5 BUN 16 Creatinine 0.70 Est GFR ( Amer) > 60 Glucose 142 H Calcium 8.9 Magnesium 2.3 Triglycerides 53 Cholesterol 154.36 LDL Cholesterol Direct 48 VLDL Cholesterol 11.0 HDL Cholesterol 94 TSH 0.06 L Urine Color Urine Appearance Urine pH Ur Specific [place] Urine Protein Urine Glucose (UA) Urine Ketones Urine Blood 02/21/20 12:13 WBC RBC Hgb Hct MCV MCH MCHC RDW Plt Count Sodium Potassium Chloride Carbon Dioxide Anion Gap BUN Creatinine Est GFR ( Amer) Glucose Calcium Magnesium Triglycerides Cholesterol LDL Cholesterol Direct VLDL Cholesterol HDL Cholesterol TSH Urine Color YELLOW Urine Appearance CLEAR Urine pH 6.0 Ur Specific [place] 1.009 Urine Protein NEGATIVE Urine Glucose (UA) NEGATIVE Urine Ketones NEGATIVE Urine Blood NEGATIVE 02/20/20 00:27 Troponin I < 0.012 NT-Pro-B Natriuret Pep 99 Impressions: Chest X-Ray 02/20/20 00:37 IMPRESSION: No acute cardiopulmonary process copyright 2011 [employer]- All Rights Reserved Assessment and Plan - Diagnosis (1) COPD exacerbation Is this a current diagnosis for this admission?: Yes Plan: Appreciate pulmonology consult. We will add back systemic steroids as suggested. (2) Acute on chronic respiratory failure with hypoxia and hypercapnia Is this a current diagnosis for this admission?: Yes Plan: Continue nasal cannula support. Wean to room air as tolerated (3) Elevated serum glucose Is this a current diagnosis for this admission?: Yes Plan: Hemoglobin A1c is only 5.2. Likely due to systemic steroid therapy. Continue to monitor. (4) Leukocytosis Qualifiers: Leukocytosis type: unspecified Qualified Code(s): D72.829 - Elevated white blood cell count, unspecified Is this a current diagnosis for this admission?: Yes Plan: Likely due to exacerbation of COPD. Continue to monitor. (5) Depression with anxiety Is this a current diagnosis for this admission?: Yes Plan: Trial of Remeron instituted. Patient reports that it was very helpful last night. Continue at current dose. (6) Tobacco use disorder Is this a current diagnosis for this admission?: Yes Plan: Nicotine patch (7) Vaginal itching Is this a current diagnosis for this admission?: Yes Plan: No discharge reported. Likely vaginal atrophy. Trial dose of Estrace cream. - Plan Summary Summary: Patient will be admitted to the medical floor where she will receive routine supportive and symptomatic cares. She will receive supplemental oxygen via n oninvasive airway pressure support with BiPAP to maintain an adequate oxygen saturation. She will receive an aggressive pulmonary toilet utilizing nebulized Xopenex, Atrovent and Pulmicort. She will receive Solu-Medrol 40 mg IV every 6 hours x3 doses to complete a burst dose Solu-Medrol protocol. She will receive Levaquin 750 mg IV daily. She will use morphine sulfate 2 to 4 mg IV every 2 hours as needed for pain. To use Ativan 1 mg IV every 4 hours as needed for anxiety or restlessness. Smoking cessation is advised and counseled briefly at the bedside. A nicotine replacement patch is available for the patient's use, if desired. CBCs, metabolic profiles and additional laboratory and/or radiographic evaluations will be obtained as needed. Patient will be placed on a regular diet. - Time Time Spent with patient: 15-24 minutes Smoking Cessation Education: 3 to 10 minutes Medications reviewed and adjusted accordingly: Yes Anticipated Discharge Disposition: Home, Self Care Anticipated Discharge Timeframe: within 72 hours
[2020-02-21 14:42] LABS: FREE T3 2.71 pg/mL (2.77-5.27); FREE T4 (FREE THYROXINE) 1.17 ng/dL (0.78-2.19)
[2020-02-21] MEDS: NORMAL SALINE 1000 ML 1,000 ML IV PRN (15:42)
[2020-02-21] MEDS ORDERED: METHYLPREDNISOLONE INJ 125 MG/2 ML SDV IV ONE (16:20)
--- NOTE | 2020-02-21 16:22 | RADIOLOGY REPORT (SQ) ---
EXAM DESCRIPTION: U/S THYROID/SFT TISS HD NECK IMAGES COMPLETED DATE/TIME: 02/21/2020 3:16 pm REASON FOR STUDY: new hyperthyroidism COMPARISON: None. TECHNIQUE: Dynamic and static cai-scale images acquired of the thyroid gland. Selected additional c olor/power Doppler images recorded. All images stored to PACS. LIMITATIONS: None. FINDINGS: RIGHT LOBE: Normal size measuring 3.9 x 1.4 x 1.2 cm. Homogeneous echotexture. Ill-defin ed predominantly isoechoic right lobe upper pole nodule measuring 0.5 x 0.4 x 0.5 cm (TI rads 3). Sm all lower pole spongiform hypoechoic nodule with single calcification and smooth border measuring 0.3 x 0.2 x 0.4 cm (TI rads 4). LEFT LOBE: Normal size measuring 3.9 x 1.3 x 1.5 cm. Homogeneous echotexture. Small hypoechoic nodu le measuring 0.3 x 0.2 x 0.3 cm (TI rads 3) ISTHMUS: Normal size measuring 0.3 cm. Homogeneous echotexture. No cystic or solid masses. OTHER: No other significant finding. IMPRESSION: Scattered small subcentimeter thyroid nodules, none of which meet biopsy criteria. Foll ow-up recommendations as below. COMMENT: The [employer] ([employer]) Thyroid Imaging Reporting And Data System (TI-RADS ) is an ultrasound feature based summed scoring system of risk categorization and management recommen dations for thyroid nodules. TI-RADS assessment categories are as follows: 0 - Incomplete exam: Additional imaging or comparison to prior examinations recommended. 1. - Benign: Fine-needle aspiration or follow-up not routinely recommended in the absence of clinical change. 2. - Not suspicious: Fine-needle aspiration or follow-up not routinely recommended in the absence of clinical change. 3. - Mildly suspicious: Fine-needle aspiration recommended if greater than or equal to 2.5 cm in size . Ultrasound follow-up recommended if greater than or equal to 1.5 cm in size. Follow-up at 1, 3, and 5 years. 4. - Moderately suspicious: Fine-needle aspiration recommended if greater than or equal to 1.5 cm in size. Ultrasound follow-up recommended if greater than or equal to 1.0 cm in size. Follow-up at 1, 2, 3, and 5 years. 5. - Highly suspicious: Fine-needle aspiration recommended if greater than or equal to 1.0 cm in size . Ultrasound follow-up recommended if greater than or equal to 0.5 cm in size. Follow-up at 1, 2, 3, and 5 years. TECHNICAL DOCUMENTATION: JOB ID: [id number] 2010 [employer]- All Rights Reserved Reading location - IP/workstation name: [email or web address]
[2020-02-21] MEDS: BUDESONIDE NEB 0.5 MG/2 ML AMPUL NEB SCH (19:51)
[2020-02-21] MEDS: MIRTAZAPINE 15 MG TABLET PO SCH (20:59)
[2020-02-21] MEDS: TRAZODONE HCL 50 MG TABLET PO SCH (20:59)
[2020-02-21] MEDS: METHYLPREDNISOLONE INJ 40 MG/1 ML SDV IV SCH (21:05)
[2020-02-22] MEDS: IPRATROPIUM BROMIDE 0.02% NEB 0.5 MG/2.5 ML AMPUL NEB SCH ×4 (02:09→20:07)
[2020-02-22] MEDS: LEVALBUTEROL HCL NEB 1.25 MG/3 ML AMPUL NEB SCH ×4 (02:09→20:07)
[2020-02-22 06:19] LABS: HEMOGLOBIN 13.3 g/dL (12.0-15.5); MEAN CORPUSCULAR HGB CONC 33.3 g/dL (32.0-36.0); MEAN CORPUSCULAR VOLUME 93 fl (80-97); PLATELET COUNT 238 10^3/uL (150-450); RED BLOOD COUNT 4.29 10^6/uL (3.72-5.28); RED CELL DISTRIBUTION WIDTH 13.8 % (11.5-14.0); WHITE BLOOD COUNT 7.9 10^3/uL (4.0-10.5)
[2020-02-22] MEDS: HEPARIN SOD (PORCINE) 5,000 UNIT/ML 1 ML VIAL SUBCUT SCH ×3 (06:37→21:15)
[2020-02-22] MEDS: BUDESONIDE NEB 0.5 MG/2 ML AMPUL NEB SCH (07:54)
[2020-02-22] MEDS: BACLOFEN 10 MG TABLET PO PRN ×2 (08:55→21:15)
[2020-02-22] MEDS: LORAZEPAM 1 MG TABLET PO PRN ×2 (08:55→21:15)
[2020-02-22] MEDS: FAMOTIDINE 20 MG TABLET PO SCH ×2 (09:24→21:15)
[2020-02-22] MEDS: DOCUSATE SODIUM 100 MG CAPSULE PO SCH ×2 (09:24→17:40)
[2020-02-22] MEDS: LEVOFLOXACIN 750 MG TABLET PO SCH (09:24)
[2020-02-22] MEDS: METHYLPREDNISOLONE INJ 40 MG/1 ML SDV IV SCH ×2 (09:25→21:16)
[2020-02-22] MEDS: GUAIFENESIN 600 MG TABLET.SA PO SCH ×2 (09:25→21:15)
[2020-02-22] MEDS: NORMAL SALINE 1000 ML 1,000 ML IV PRN ×2 (09:29→21:21)
[2020-02-22] MEDS: CARBAMAZEPINE 200 MG TABLET PO SCH ×2 (09:35→21:15)
[2020-02-22] MEDS: FLUTICASONE/UMECLIDIN/VILANTER 100-62.5-25 MCG/DOSE IH SCH (09:35)
--- NOTE | 2020-02-22 14:00 | PDOC PROGRESS REPORT ---
Subjective Subjective:: 59 year old female with a 2-day history of dyspnea. She admits the gradual onset of dyspnea over the last 2 days until the evening of 02/19/2020 when he dramatically developed severe dyspnea and summoned mass. She denies associated or accompanying signs and symptoms. She admits prior similar episodes related to her COPD. She has not identified any aggravating or ameliorating factors for her dyspnea. She had begun using her oxygen at 2 L/min via nasal cannula at home prior to calling EMS and was noted by EMS to have an O2 sat of 83% upon their arrival. She received DuoNeb nebulizer therapies x2, Solu-Medrol 125 mg IV x1 and magnesium sulfate 2 g IV x1 in the ambulance en route to the hospital. In the emergency room she was found to be hypoxic and was very labored in her breathing requiring BiPAP to maintain an adequate oxygen saturation. She was given additional nebulizer treatments and improved but still needed BiPAP support. She was subsequently admitted to the hospital for further evaluation and treatment. 02/19-The patient is very anxious. She is tachypneic. She is able to talk in full sentences. No overt wheezing. Respiratory therapy did call earlier to request and increased frequency of her nebulizer treatments. 02/20-The patient's TSH was 0.06 which is much less than the lower limit normal of 0.47. The patient may very well be hyperthyroid. She still feels that there is mucus to cough up but she cannot cough it up. She still feels dry. She also complains of vaginal itching. 02/22/2020-patient is comfortably in the bed without oxygen. Refusing to wear the BiPAP. Pulse ox is 97% on 1 L. On examination chest bilateral entry was decreased no wheezing no crepitations present. Plan is to continue IV Solu- Medrol at this time. Reason For Visit: ACUTE EXACERBATION OF COPD,ACUTE ON CHRONIC RESPIR Physical Exam Vital Signs: Temp Pulse Resp BP Pulse Ox 97.8 F 86 17 122/70 96 02/22/20 11:48 02/22/20 11:48 02/22/20 11:48 02/22/20 11:48 02/22/20 11:48 Intake & Output 02/21/20 02/22/20 02/23/20 06:59 06:59 06:59 Intake Total 2045 2240 240 Output Total 2600 900 Balance 2045 -360 -660 Weight 70.5 kg 70.5 kg General appearance: PRESENT: no acute distress, cooperative, well-developed Head exam: PRESENT: atraumatic Eye exam: PRESENT: PERRLA Mouth exam: PRESENT: moist, tongue midline Teeth exam: PRESENT: poor dentation Neck exam: ABSENT: carotid bruit, JVD, lymphadenopathy, thyromegaly Respiratory exam: PRESENT: decreased breath sounds Cardiovascular exam: PRESENT: RRR. ABSENT: diastolic murmur, rubs, systolic murmur Pulses: PRESENT: normal dorsalis pedis pul GI/Abdominal exam: PRESENT: normal bowel sounds, soft. ABSENT: distended, guarding, mass, organolmegaly, rebound, tenderness Rectal exam: PRESENT: deferred Extremities exam: PRESENT: full ROM. ABSENT: calf tenderness, clubbing, pedal edema Neurological exam: PRESENT: alert, awake, oriented to person, oriented to place, oriented to time, oriented to situation, CN II-XII grossly intact. ABSENT: motor sensory deficit Psychiatric exam: PRESENT: appropriate affect, normal mood. ABSENT: homicidal ideation, suicidal ideation Results Laboratory Results: 02/22/20 04:26 02/21/20 04:18 02/21/20 02/22/20 04:18 04:26 WBC 7.9 RBC 4.29 Hgb 13.3 Hct 40.0 MCV 93 MCH 31.0 MCHC 33.3 RDW 13.8 Plt Count 238 Free T4 1.17 Free T3 pg/mL 2.71 L 02/20/20 00:27 Troponin I < 0.012 NT-Pro-B Natriuret Pep 99 Impressions: Chest X-Ray 02/20/20 00:37 IMPRESSION: No acute cardiopulmonary process copyright 2011 [employer]- All Rights Reserved Thyroid Ultrasound 02/21/20 00:00 IMPRESSION: Scattered small subcentimeter thyroid nodules, none of which meet biopsy criteria. Follow-up recommendations as below. Assessment and Plan - Diagnosis (1) COPD exacerbation Is this a current diagnosis for this admission?: Yes Plan: Appreciate pulmonology consult. We will add back systemic steroids as suggested. 1120-on examination chest bilateral entry was decreased in all lung pop. No wheezing is present. Presently on IV Solu-Medrol 80 mg every 12 hours plan is to decrease the dose to 40 twice daily. To continue Xopenex nebulizations at this time. (2) Acute on chronic respiratory failure with hypoxia and hypercapnia Is this a current diagnosis for this admission?: Yes Plan: Continue nasal cannula support. Wean to room air as tolerated 02/22/2020-pulse ox is 97% on 1 L. Acute on chronic respiratory failure with hypoxia resolving. (3) Elevated serum glucose Is this a current diagnosis for this admission?: Yes Plan: Hemoglobin A1c is only 5.2. Likely due to systemic steroid therapy. Continue to monitor. 02/22/2020-hemoglobin A1c is 5.2 latest blood sugar is 140. Patient is on IV steroids at this time. (4) Depression with anxiety Is this a current diagnosis for this admission?: Yes Plan: Trial of Remeron instituted. Patient reports that it was very helpful last night. Continue at current dose. (5) Leukocytosis Qualifiers: Leukocytosis type: unspecified Qualified Code(s): D72.829 - Elevated white blood cell count, unspecified Is this a current diagnosis for this admission?: Yes Plan: Likely due to exacerbation of COPD. Continue to monitor. 02/22/2020-WBC count is 7900 within normal limits today. Leukocytosis is resolved. (6) Tobacco use disorder Is this a current diagnosis for this admission?: Yes Plan: Nicotine patch - Plan Summary Summary: Patient will be admitted to the medical floor where she will receive routine supportive and symptomatic cares. She will receive supplemental oxygen via noninvasive airway pressure support with BiPAP to maintain an adequate oxygen saturation. She will receive an aggressive pulmonary toilet utilizing nebulized Xopenex, Atrovent and Pulmicort. She will receive Solu-Medrol 40 mg IV every 6 hours x3 doses to complete a burst dose Solu-Medrol protocol. She will receive Levaquin 750 mg IV daily. She will use morphine sulfate 2 to 4 mg IV every 2 hours as needed for pain. To use Ativan 1 mg IV every 4 hours as needed for anxiety or restlessness. Smoking cessation is advised and counseled briefly at the bedside. A nicotine replacement patch is available for the patient's use, if desired. CBCs, metabolic profiles and additional laboratory and/or radiographic evaluations will be obtained as needed. Patient will be placed on a regular diet. - Time Anticipated Discharge Disposition: Home, Self Care Anticipated Discharge Timeframe: within 48 hours
[2020-02-22] MEDS: GUAIFENESIN SYRP 200 MG/10 ML UDC PO PRN (21:15)
[2020-02-22] MEDS: TRAZODONE HCL 50 MG TABLET PO SCH (21:15)
[2020-02-22] MEDS: MIRTAZAPINE 15 MG TABLET PO SCH (21:15)
[2020-02-23] MEDS: IPRATROPIUM BROMIDE 0.02% NEB 0.5 MG/2.5 ML AMPUL NEB SCH ×3 (02:09→13:38)
[2020-02-23] MEDS: LEVALBUTEROL HCL NEB 1.25 MG/3 ML AMPUL NEB SCH ×3 (02:09→13:38)
[2020-02-23] MEDS: HEPARIN SOD (PORCINE) 5,000 UNIT/ML 1 ML VIAL SUBCUT SCH (05:40)
[2020-02-23] MEDS: LORAZEPAM 1 MG TABLET PO PRN (05:54)
[2020-02-23] MEDS: GUAIFENESIN SYRP 200 MG/10 ML UDC PO PRN (05:55)
[2020-02-23] MEDS: BACLOFEN 10 MG TABLET PO PRN (05:55)
[2020-02-23] MEDS: OXYCODONE HCL IR 5 MG TABLET PO PRN (05:55)
[2020-02-23 06:51] LABS: HEMATOCRIT 41.9 % (36.0-47.0); HEMOGLOBIN 13.8 g/dL (12.0-15.5); MEAN CORPUSCULAR HGB CONC 32.9 g/dL (32.0-36.0); MEAN CORPUSCULAR VOLUME 94 fl (80-97); PLATELET COUNT 247 10^3/uL (150-450); RED BLOOD COUNT 4.45 10^6/uL (3.72-5.28); RED CELL DISTRIBUTION WIDTH 14.2 % (11.5-14.0); WHITE BLOOD COUNT 9.5 10^3/uL (4.0-10.5)
[2020-02-23] MEDS: CARBAMAZEPINE 200 MG TABLET PO SCH ×2 (07:55→10:24)
[2020-02-23] MEDS: FAMOTIDINE 20 MG TABLET PO SCH (10:16)
[2020-02-23] MEDS: GUAIFENESIN 600 MG TABLET.SA PO SCH (10:16)
[2020-02-23] MEDS: LEVOFLOXACIN 750 MG TABLET PO SCH (10:16)
[2020-02-23] MEDS: DOCUSATE SODIUM 100 MG CAPSULE PO SCH (10:16)
[2020-02-23] MEDS: METHYLPREDNISOLONE INJ 40 MG/1 ML SDV IV SCH (10:17)
[2020-02-23] MEDS: FLUTICASONE/UMECLIDIN/VILANTER 100-62.5-25 MCG/DOSE IH SCH (10:21)
[2020-02-23] MEDS: NICOTINE 21 MG/24 HR PATCH.TD24 TD PRN (10:34)
[2020-02-23 13:21] VITALS: BP 122/69
--- NOTE | 2020-02-23 13:39 | PDOC DISCHARGE SUMMARY ---
Impression - Admit/DC Date/PCP Admission Date/Primary Care Provider: 02/20/20 03:09 SHERLYN CARTY MD Discharge Date: 02/23/20 - Discharge Diagnosis (1) COPD exacerbation Is this a current diagnosis for this admission?: Yes (2) Acute on chronic respiratory failure with hypoxia and hypercapnia Is this a current diagnosis for this admission?: Yes (3) Elevated serum glucose Is this a current diagnosis for this admission?: Yes (4) Depression with anxiety Is this a current diagnosis for this admission?: Yes (5) Leukocytosis Is this a current diagnosis for this admission?: Yes (6) Tobacco use disorder Is this a current diagnosis for this admission?: Yes - Assessment Summary: (1) COPD exacerbation Is this a current diagnosis for this admission?: Yes Plan: Appreciate pulmonology consult. We will add back systemic steroids as suggested. 02/22/20-on examination chest bilateral entry was decreased in all lung pop. No wheezing is present. Presently on IV Solu-Medrol 80 mg every 12 hours plan is to decrease the dose to 40 twice daily. To continue Xopenex nebulizations at this time. 02/23/2020-on examination comfortably in the bed communicating well not in distress. Not on oxygen supplementations. Chest bilateral entry was decreased no wheezing no crepitations. Patient is advised to continue inhalers at home given a prescription for antibiotic therapy. (2) Acute on chronic respiratory failure with hypoxia and hypercapnia Is this a current diagnosis for this admission?: Yes Plan: Continue nasal cannula support. Wean to room air as tolerated 02/22/2020-pulse ox is 97% on 1 L. Acute on chronic respiratory failure with hypoxia resolving. 02/23/2020-pulse ox is 100% room air. Plan is to discharge her home and follow- up with PCP next week. (3) Elevated serum glucose Is this a current diagnosis for this admission?: Yes Plan: Hemoglobin A1c is only 5.2. Likely due to systemic steroid therapy. Continue to monitor. 02/22/2020-hemoglobin A1c is 5.2 latest blood sugar is 140. Patient is on IV steroids at this time. (4) Depression with anxiety Is this a current diagnosis for this admission?: Yes Plan: Trial of Remeron instituted. Patient reports that it was very helpful last night. Continue at current dose. (5) Leukocytosis Qualifiers: Leukocytosis type: unspecified Qualified Code(s): D72.829 - Elevated white blood cell count, unspecified Is this a current diagnosis for this admission?: Yes Plan: Likely due to exacerbation of COPD. Continue to monitor. 02/22/2020-WBC count is 7900 within normal limits today. Leukocytosis is r esolved. (6) Tobacco use disorder Is this a current diagnosis for this admission?: Yes Plan: Nicotine patch - Additional Information Resuscitation Status: Full Code Discharge Diet: Cardiac Discharge Activity: Activity As Tolerated Referrals: SHERLYN CARTY MD [Primary Care Provider] - 02/28/20 9:30 am Prescriptions: Levofloxacin [Levaquin 750 mg Tablet] 750 mg PO DAILY 3 Days #3 tablet Prednisone 10 mg PO BID 5 Days #10 tablet Home Medications: Acetaminophen [Acetaminophen Extra Strength] 1,000 mg PO Q4HP PRN 02/20/20 Albuterol Sulfate [Proair HFA Inhalation Aerosol 8.5 gm MDI] 2 puff IH Q4 PRN 02/20/20 Albuterol Sulfate [Ventolin 0.083% Neb 2.5 mg/3 mL Ampul] 3 ml NEB RTQ4HP PRN 02/20/20 Citalopram Hydrobromide [Celexa] 40 mg PO BID 02/20/20 Ibuprofen [Motrin 800 mg Tablet] 800 mg PO Q8HP PRN 02/20/20 Lorazepam [Ativan 1 mg Tablet] 1 mg PO BIDP PRN 02/20/20 Pramipexole Di-HCl [Mirapex] 0.125 mg PO QHS 02/20/20 Trazodone HCl [Desyrel 50 mg Tablet] 50 mg PO QHS 02/20/20 Umeclidinium Brm/Vilanterol Tr [Anoro Ellipta 62.5-25 Mcg INH] 1 puff IH DAILY 02/20/20 Levofloxacin [Levaquin 750 mg Tablet] 750 mg PO DAILY 3 Days #3 tablet 02/23/20 Prednisone 10 mg PO BID 5 Days #10 tablet 02/23/20 History of Present Illiness History of Present Illness: FLORA CUELLAR is a 59 year old female 59 year old female with a 2-day history of dyspnea. She admits the gradual onset of dyspnea over the last 2 days until the evening of 02/19/2020 when he dramatically developed severe dyspnea and summoned mass. She denies associated or accompanying signs and symptoms. She admits prior similar episodes related to her COPD. She has not identified any aggravating or ameliorating factors for her dyspnea. She had begun using her oxygen at 2 L/min via nasal cannula at home prior to calling EMS and was noted by EMS to have an O2 sat of 83% upon their arrival. She received DuoNeb nebulizer therapies x2, Solu-Medrol 125 mg IV x1 and magnesium sulfate 2 g IV x1 in the ambulance en route to the hospital. In the emergency room she was found to be hypoxic and was very labored in her breathing requiring BiPAP to maintain an adequate oxygen saturation. She was given additional nebulizer treatments and improved but still needed BiPAP support. She was subsequently admitted to the hospital for further evaluation and treatment. Hospital Course Hospital Course: 59 year old female with a 2-day history of dyspnea. She admits the gradual onset of dyspnea over the last 2 days until the evening of 02/19/2020 when he dramatically developed severe dyspnea and summoned mass. She denies associated or accompanying signs and symptoms. She admits prior similar episodes related to her COPD. She has not identified any aggravating or ameliorating factors for her dyspnea. She had begun using her oxygen at 2 L/min via nasal cannula at home prior to calling EMS and was noted by EMS to have an O2 sat of 83% upon their arrival. She received DuoNeb nebulizer therapies x2, Solu-Medrol 125 mg IV x1 and magnesium sulfate 2 g IV x1 in the ambulance en route to the hospital. In the emergency room she was found to be hypoxic and was very labored in her breathing requiring BiPAP to maintain an adequate oxygen saturation. She was given additional nebulizer treatments and improved but still needed BiPAP support. She was subsequently admitted to the hospital for further evaluation and treatment. 02/19-The patient is very anxious. She is tachypneic. She is able to talk in full sentences. No overt wheezing. Respiratory therapy did call earlier to request and increased frequency of her nebulizer treatments. 02/20-The patient's TSH was 0.06 which is much less than the lower limit normal of 0.47. The patient may very well be hyperthyroid. She still feels that there is mucus to cough up but she cannot cough it up. She still feels dry. She also complains of vaginal itching. 02/22/2020-patient is comfortably in the bed without oxygen. Refusing to wear the BiPAP. Pulse ox is 97% on 1 L. On examination chest bilateral entry was decreased no wheezing no crepitations present. Plan is to continue IV Solu- Medrol at this time. 02/23/20-patient is doing well. Not in distress. Pulse ox is 100% on room air. Patient agreed for the discharge she would like to go home on antibiotic therapy. Blood cultures are negative during the hospital stay. Physical Exam Vital Signs: Temp Pulse Resp BP Pulse Ox 98.2 F 94 18 116/75 96 02/23/20 13:18 02/23/20 13:18 02/23/20 13:18 02/23/20 13:18 02/23/20 13:18 Intake & Output 02/22/20 02/23/20 02/24/20 06:59 06:59 06:59 Intake Total 2240 2770 750 Output Total 2600 3200 650 Balance -360 -430 100 Weight 70.5 kg 70.5 kg 63.9 kg General appearance: PRESENT: no acute distress Head exam: PRESENT: atraumatic Eye exam: PRESENT: PERRLA Mouth exam: PRESENT: moist, tongue midline Neck exam: ABSENT: carotid bruit, JVD, lymphadenopathy, thyromegaly Respiratory exam: PRESENT: decreased breath sounds Cardiovascular exam: PRESENT: RRR. ABSENT: diastolic murmur, rubs, systolic murmur GI/Abdominal exam: PRESENT: normal bowel sounds, soft. ABSENT: distended, guarding, mass, organolmegaly, rebound, tenderness Rectal exam: PRESENT: deferred Extremities exam: PRESENT: full ROM. ABSENT: calf tenderness, clubbing, pedal edema Neurological exam: PRESENT: alert, awake, oriented to person, oriented to place, oriented to time, oriented to situation, CN II-XII grossly intact. ABSENT: motor sensory deficit Psychiatric exam: PRESENT: appropriate affect, normal mood. ABSENT: homicidal ideation, suicidal ideation Results Laboratory Results: WBC 9.5 10^3/uL (4.0-10.5) 02/23/20 05:39 RBC 4.45 10^6/uL (3.72-5.28) 02/23/20 05:39 Hgb 13.8 g/dL (12.0-15.5) 02/23/20 05:39 Hct 41.9 % (36.0-47.0) 02/23/20 05:39 MCV 94 fl (80-97) 02/23/20 05:39 MCH 31.0 pg (27.0-33.4) 02/23/20 05:39 MCHC 32.9 g/dL (32.0-36.0) 02/23/20 05:39 RDW 14.2 % (11.5-14.0) H 02/23/20 05:39 Plt Count 247 10^3/uL (150-450) 02/23/20 05:39 Lymph % (Auto) 13.2 % (13-45) 02/20/20 00:27 [place] % (Auto) 6.1 % (3-13) 02/20/20 00:27 Eos % (Auto) 1.5 % (0-6) 02/20/20 00:27 Baso % (Auto) 0.9 % (0-2) 02/20/20 00:27 Absolute Neuts (auto) 9.3 10^3/uL (1.7-8.2) H 02/20/20 00:27 Absolute Lymphs (auto) 1.6 10^3/uL (0.5-4.7) 02/20/20 00:27 Absolute Monos (auto) 0.7 10^3/uL (0.1-1.4) 02/20/20 00:27 Absolute Eos (auto) 0.2 10^3/uL (0.0-0.6) 02/20/20 00:27 Absolute Basos (auto) 0.1 10^3/uL (0.0-0.2) 02/20/20 00:27 Seg Neutrophils % 78.3 % (42-78) H 02/20/20 00:27 Carbonic Acid 1.64 mmol/L (1.05-1.35) H 02/20/20 03:33 HCO3/H2CO3 Ratio 14:1 02/20/20 03:33 ABG pH 7.26 (7.35-7.45) L 02/20/20 03:33 ABG pCO2 54.4 mmHg (35-45) H 02/20/20 03:33 ABG pO2 74.7 mmHg (80-100) L 02/20/20 03:33 ABG HCO3 24.0 mmol/L (20-24) 02/20/20 03:33 ABG Total CO2 25.6 mmol/L (21-25) H 02/20/20 03:33 ABG O2 Saturation 92.7 % (94-98) L 02/20/20 03:33 ABG Base Excess -3.8 mmol/L 02/20/20 03:33 VBG pH 7.15 (7.30-7.42) L* 02/20/20 00:27 VBG pCO2 79.4 mmHg (35-63) H* 02/20/20 00:27 VBG HCO3 27.0 mmol/L (20-32) 02/20/20 00:27 VBG Base Excess -4.2 mmol/L 02/20/20 00:27 FiO2 32% 02/20/20 03:33 Sodium 138.3 mmol/L (137-145) 02/21/20 04:18 Potassium 4.6 mmol/L (3.6-5.0) 02/21/20 04:18 Chloride 106 mmol/L (98-107) 02/21/20 04:18 Carbon Dioxide 28 mmol/L (22-30) 02/21/20 04:18 Anion Gap 5 (5-19) 02/21/20 04:18 BUN 16 mg/dL (7-20) 02/21/20 04:18 Creatinine 0.70 mg/dL (0.52-1.25) 02/21/20 04:18 Est GFR ( Amer) > 60 (>60) 02/21/20 04:18 Est GFR (MDRD) Non-Af > 60 (>60) 02/21/20 04:18 Glucose 142 mg/dL (75-110) H 02/21/20 04:18 Hemoglobin A1c % 5.2 % (4.7-6.0) 02/21/20 04:18 Calcium 8.9 mg/dL (8.4-10.2) 02/21/20 04:18 Magnesium 2.3 mg/dL (1.6-2.3) 02/21/20 04:18 Total Bilirubin 0.5 mg/dL (0.2-1.3) 02/20/20 00:27 Direct Bilirubin 0.0 mg/dL (0.0-0.4) 02/20/20 00:27 Neonat Total Bilirubin Not Reportable 02/20/20 00:27 Neonat Direct Bilirubin Not Reportable 02/20/20 00:27 Neonat Indirect Bili Not Reportable 02/20/20 00:27 AST 33 U/L (14-36) 02/20/20 00:27 ALT 24 U/L (<35) 02/20/20 00:27 Alkaline Phosphatase 87 U/L (38-126) 02/20/20 00:27 Troponin I < 0.012 ng/mL 02/20/20 00:27 NT-Pro-B Natriuret Pep 99 pg/mL (<125) 02/20/20 00:27 Total Protein 7.3 g/dL (6.3-8.2) 02/20/20 00:27 Albumin 4.5 g/dL (3.5-5.0) 02/20/20 00:27 Triglycerides 53 mg/dL (<150) 02/21/20 04:18 Cholesterol 154.36 mg/dL (0-200) 02/21/20 04:18 LDL Cholesterol Direct 48 mg/dL (<100) 02/21/20 04:18 VLDL Cholesterol 11.0 mg/dL (10-31) 02/21/20 04:18 HDL Cholesterol 94 mg/dL (>40) 02/21/20 04:18 TSH 0.06 uIU/mL (0.47-4.68) L 02/21/20 04:18 Free T4 1.17 ng/dL (0.78-2.19) 02/21/20 04:18 Free T3 pg/mL 2.71 pg/mL (2.77-5.27) L 02/21/20 04:18 Urine Color YELLOW 02/21/20 12:13 Urine Appearance CLEAR 02/21/20 12:13 Urine pH 6.0 (5.0-9.0) 02/21/20 12:13 Ur Specific [place] 1.009 02/21/20 12:13 Urine Protein NEGATIVE mg/dL (NEGATIVE) 02/21/20 12:13 Urine Glucose (UA) NEGATIVE mg/dL (NEGATIVE) 02/21/20 12:13 Urine Ketones NEGATIVE mg/dL (NEGATIVE) 02/21/20 12:13 Urine Blood NEGATIVE (NEGATIVE) 02/21/20 12:13 Urine Nitrite (Reflex) NEGATIVE (NEGATIVE) 02/21/20 12:13 Urine Bilirubin NEGATIVE (NEGATIVE) 02/21/20 12:13 Urine Urobilinogen NEGATIVE mg/dL (<2.0) 02/21/20 12:13 Leukocyte Esterase Rfl NEGATIVE (NEGATIVE) 02/21/20 12:13 Urine Bacteria (Auto) 1+ /HPF 02/21/20 12:13 Urine WBC (Reflex) 1 /HPF 02/21/20 12:13 Squamous Epi Cells Auto 1 /HPF 02/21/20 12:13 Urine Mucus (Auto) RARE /LPF 02/21/20 12:13 Urine Ascorbic Acid NEGATIVE (NEGATIVE) 02/21/20 12:13 02/20/20 00:27 Troponin I < 0.012 NT-Pro-B Natriuret Pep 99 Impressions: Chest X-Ray 02/20/20 00:37 IMPRESSION: No acute cardiopulmonary process copyright 2011 [employer]- All Rights Reserved Thyroid Ultrasound 02/21/20 00:00 IMPRESSION: Scattered small subcentimeter thyroid nodules, none of which meet biopsy criteria. Follow-up recommendations as below. Plan Plan of Treatment: Patient is advised to be compliant with her medications and follow-up with PCP next week. Time Spent: Greater than 30 Minutes Stroke Is this a Stroke Patient?: No Acute Heart Failure - Is this a Heart Failure Patient?: No
== END 2020-02-23 13:49 | disposition home or self-care (01) | DRG 189 ==
LOC: ER 00:18 → EH 03:09 → 4N 05:35
PROVIDERS: ADMIT Emergency Medicine; ATTEND Internal Medicine
PROC: 5A09457 Assistance with Respiratory Ventilation, 24-96 Consecutive Hours, Continuous Positive Airway Pressure (ICD-10-PCS; principal; 2020-02-20)
DX: J96.22 Acute and chronic respiratory failure with hypercapnia (principal); J44.1 Chronic obstructive pulmonary disease with (acute) exacerbation; J96.21 Acute and chronic respiratory failure with hypoxia; F41.8 Other specified anxiety disorders; N89.8 Other specified noninflammatory disorders of vagina; F17.210 Nicotine dependence, cigarettes, uncomplicated; Z90.710 Acquired absence of both cervix and uterus; Z85.828 Personal history of other malignant neoplasm of skin; Z82.3 Family history of stroke; Z83.3 Family history of diabetes mellitus; Z81.1 Family history of alcohol abuse and dependence; Z79.51 Long term (current) use of inhaled steroids; D72.89 Other specified disorders of white blood cells; R73.9 Hyperglycemia, unspecified; T38.0X5A Adverse effect of glucocorticoids and synthetic analogues, initial encounter
CPT/HCPCS: 36415; 71045; 76536; 80048; 80053; 80061; 81001; 82803; 83036; 83735; 83880; 84439; 84443; 84481; 84484; 85025; 85027; 87040; 94640; 94660; 96361; 96374; 99291; J1644; J1956; J2060; J2270; J2920; J2930; J3490; J7030

== ENCOUNTER 2020-04-01 10:29 | Inpatient (IN) | payer MEDICARE, MEDICAID ==
[2020-04-01 10:57] LABS: HEMATOCRIT 47.2 % (36.0-47.0); HEMOGLOBIN 16.1 g/dL (12.0-15.5); MEAN CORPUSCULAR HEMOGLOBIN 31.7 pg (27.0-33.4); MEAN CORPUSCULAR HGB CONC 34.2 g/dL (32.0-36.0); MEAN CORPUSCULAR VOLUME 93 fl (80-97); PLATELET COUNT 310 10^3/uL (150-450); RED BLOOD COUNT 5.08 10^6/uL (3.72-5.28); RED CELL DISTRIBUTION WIDTH 13.7 % (11.5-14.0)
[2020-04-01 11:12] LABS: INTERNATIONAL RATION (INR) 0.93; PROTHROMBIN TIME 12.7 SEC (11.4-15.4)
--- NOTE | 2020-04-01 11:14 | ER Document Report ---
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 Patient states she stayed 5 days. Patient states about a week after discharge she started to have some shortness of breath again and was prescribed another repeat dose of steroids. Patient states she was doing better for couple weeks and started again around 6 days ago to have some wheezing and shortness of breath. She states of nonspecific chest pain. No calf pain or leg swelling. No recent trips or travel. No fevers or vomiting. Patient states she was called and steroids, 40 mg daily for 60 days as well as a course of Levaquin. She did not product picker the medications till yeste rday, 4 days later. This was secondary to transportation issues. She did take a dose of steroids and Levaquin yesterday. Patient supposedly has nebulizer equipment and did have home nebulizer solution filled but has not yet had it "set up". She also states she is a history of asthma on top of her COPD. She was provided a nebulizer as well as steroids by EMS with some relief. No magnesium was provided. ROS: See HPI All other review of systems reviewed and otherwise negative Reviewed vital signs and nursing note as charted by RN. PHYSICAL EXAM: CONSTITUTIONAL: Alert and oriented and responds appropriately to questions. Patient has some tachypnea that is obvious HEAD: Normocephalic; atraumatic EYES: PERRL; Conjunctivae clear, sclerae non-icteric ENT: Normal nose; no rhinorrhea; moist mucous membranes; pharynx without lesions noted NECK: Supple without meningismus; non-tender; no cervical lymphadenopathy, no masses CARD: Regular rate and rhythm; no murmurs; symmetric distal pulses RESP: Obvious tachypnea present; breath sounds clear and equal bilaterally; bilateral end expiratory wheezing without rales or rhonchi ABD/GI: Normal bowel sounds; non-distended; soft, non-tender; no palpable organomegaly or masses BACK: The back appears normal and is non-tender to palpation EXT: Normal ROM in all joints; non-tender to palpation; no edema SKIN: No acute lesions noted NEURO: CN 2-12 intact; 5/5 bilateral upper and lower extremity strength with sensation intact to light touch PSYCH: The patient's mood and manner are appropriate. Grooming and personal hygiene are appropriate. TRAVEL OUTSIDE OF THE [place] IN LAST 30 DAYS: No - Related Data Allergies/Adverse Reactions: No Known Drug Allergies Allergy (Verified 02/20/20 01:33) Home Medications: Levaquin (began 03/31/20), Prednisone, Anoro Ellipta, Ventolin inhaler, Lorazepam, Celexa, Duoneb, Trazodone Past Medical History - Social History Smoking Status: Current Every Day Smoker Family History: CVA, DM, Other - Kidney disease. Significant history of alcoholism. - Past Medical History Cardiac Medical History: Denies: Hx Atrial Fibrillation, Hx Coronary Artery Disease, Hx DVT, Hx Hypercholesterolemia, Hx Hypertension, Hx Pulmonary Embolism Pulmonary Medical History: Reports: Hx Asthma, Hx Bronchitis, Hx COPD, Hx Respiratory Failure Denies: Hx Pneumonia, Hx Intubation, Hx Sleep Apnea Neurological Medical History: Denies: Hx Seizures Endocrine Medical History: Denies: Hx Diabetes Mellitus Type 1, Hx Diabetes Mellitus Type 2, Hx Hyperthyroidism, Hx Hypothyroidism Renal/ Medical History: Denies: Hx Peritoneal Dialysis Malignancy Medical History: Reports: Hx Skin Cancer GI Medical History: Denies: Hx Cirrhosis, Hx Hepatitis Musculoskeletal Medical History: Denies Hx Arthritis, Denies Hx Fibromyalgia Skin Medical History: Denies Hx Eczema, Denies Hx Psoriasis Psychiatric Medical History: Reports: Hx Depression Infectious Medical History: Denies: Hx Hepatitis Past Surgical History: Reports: Hx Hysterectomy, Other - Bladder suspension, excision skin cancer Physical Exam - Vital signs Vitals: Resp Pulse Ox 37 H 90 L 04/01/20 10:30 04/01/20 10:30 Course - Re-evaluation Re-evalutation: 04/01/20 11:13 Given the history and physical examination, we will obtain basic labs, cardiac labs, portable x-ray of the chest, EKG, repeat duo nebulizers, course of magnesium, and reassess. Given the patient's history I do believe PE and dissection to be unlikely. EKG shows a heart of 108, sinus tachycardia, normal axis, no ST elevation or depression. 04/01/20 11:54 Reviewing the patient's past medical chart it also appears that the patient had a low TSH. 04/01/20 12:47 ABG shows mild CO2 retention. Breathing is much better. Patient is satting well on oxygen. Denies any chest pain at this time. Lactic acid is slightly elevated but the patient is afebrile. Patient has received nebulizer which I believe is the cause. Blood cultures have been sent and I have provided a dose of Levaquin given that is what the patient was started on with pulmonology yesterday. Patient will be admitted to the hospitalist service for further evaluation and repeat nebulizers. - Vital Signs Vital signs: Temp Pulse Resp BP Pulse Ox 97.9 F 29 H 131/82 H 94 04/01/20 10:35 04/01/20 12:01 04/01/20 10:35 04/01/20 12:01 - Laboratory Result Diagrams: 04/01/20 10:30 04/01/20 10:30 Laboratory results interpreted by me: 04/01/20 04/01/20 04/01/20 10:30 10:30 10:30 WBC 16.0 H Hgb 16.1 H Hct 47.2 H Seg Neuts % (Manual) 94 H Lymphocytes % (Manual) 6 L Monocytes % (Manual) 0 L Abs Neuts (Manual) 15.0 H Abs Monocytes (Manual) 0.0 L Carbonic Acid ABG pH ABG pCO2 ABG pO2 ABG HCO3 ABG Total CO2 ABG O2 Saturation Glucose 137 H Lactic Acid 2.2 H NT-Pro-B Natriuret Pep 04/01/20 04/01/20 10:30 11:41 WBC Hgb Hct Seg Neuts % (Manual) Lymphocytes % (Manual) Monocytes % (Manual) Abs Neuts (Manual) Abs Monocytes (Manual) Carbonic Acid 1.60 H ABG pH 7.30 L ABG pCO2 53.0 H ABG pO2 67.1 L ABG HCO3 25.2 H ABG Total CO2 26.8 H ABG O2 Saturation 91.1 L Glucose Lactic Acid NT-Pro-B Natriuret Pep 325 H Critical Care Note - Critical Care Note Total time excluding time spent on procedures (mins): 35 Discharge - Discharge Clinical Impression: Acute respiratory distress, Hypoxia Condition: Fair Disposition: ADMITTED INPATIENT Admitting Provider: Wilbert (Hospitalist) Unit Admitted: Medical Floor Referrals: SHERLYN CARTY MD [Primary Care Provider] - Follow up as needed
[2020-04-01 11:17] LABS: ALBUMIN 4.6 g/dL (3.5-5.0); ALKALINE PHOSPHATASE 77 U/L (38-126); ANION GAP 12 (5-19); ASPARTATE AMINO TRANSFERASE 34 U/L (14-36); BILIRUBIN,DIRECT 0.3 mg/dL (0.0-0.4); BILIRUBIN,TOTAL 0.9 mg/dL (0.2-1.3); BLOOD UREA NITROGEN 16 mg/dL (7-20); CALCIUM 9.3 mg/dL (8.4-10.2); CARBON DIOXIDE 23 mmol/L (22-30); CHLORIDE 103 mmol/L (98-107); GLUCOSE 137 mg/dL (75-110); POTASSIUM 4.9 mmol/L (3.6-5.0); TOTAL PROTEIN 7.2 g/dL (6.3-8.2)
--- NOTE | 2020-04-01 11:23 | RADIOLOGY REPORT (SQ) ---
EXAM DESCRIPTION: CHEST SINGLE VIEW IMAGES COMPLETED DATE/TIME: 04/01/2020 11:03 am REASON FOR STUDY: bed 6 sepsis protocol COMPARISON: None. EXAM PARAMETERS: NUMBER OF VIEWS: One view. TECHNIQUE: Single frontal radiographic view of the chest acquired. RADIATION DOSE: NA LIMITATIONS: None. FINDINGS: LUNGS AND PLEURA: No opacities, masses or pneumothorax. No pleural effusion. MEDIASTINUM AND HILAR STRUCTURES: No masses. Contour normal. HEART AND VASCULAR STRUCTURES: Heart normal in size. Normal vasculature. BONES: No acute findings. HARDWARE: None in the chest. OTHER: No other significant finding. IMPRESSION: NO ACUTE RADIOGRAPHIC FINDING IN THE CHEST. TECHNICAL DOCUMENTATION: JOB ID: [id number] 2010 [employer]- All Rights Reserved Reading location - IP/workstation name: [email or web address]
[2020-04-01 11:26] LABS: BASOPHILS % (MANUAL) 0 % (0-2); EOSINOPHILS % (MANUAL) 0 % (0-6); LYMPHOCYTES % (MANUAL) 6 % (13-45); MONOCYTES % (MANUAL) 0 % (3-13); SEGMENTED NEUTROPHILS % (MAN) 94 % (42-78); TOTAL CELLS COUNTED 100
[2020-04-01 11:27] LABS: PLATELET COMMENT ADEQUATE; RBC MORPHOLOGY COMMENT NORMO-CYTIC/CHROMIC
[2020-04-01] MEDS ORDERED: LORAZEPAM INJ 2 MG/1 ML VIAL IV ONE (11:28)
[2020-04-01] MEDS: IPRATROPIUM/ALBUTEROL 0.5-2.5 MG/3 ML AMPUL NEB SCH ×3 (11:46→19:47)
[2020-04-01] MEDS: MAGNESIUM SULFATE/D5W 1 GM/100 ML RTUPB IV SCH ×2 (11:46→12:47)
[2020-04-01 12:05] LABS: ARTERIAL BLOOD BASE EXCESS -2.2 mmol/L; ARTERIAL BLOOD HCO3 25.2 mmol/L (20-24); ARTERIAL BLOOD O2 SATURATION 91.1 % (94-98); ARTERIAL BLOOD PO2 67.1 mmHg (80-100); ARTERIAL BLOOD TOTAL CO2 26.8 mmol/L (21-25)
[2020-04-01 12:06] LABS: ARTERIAL BLOOD FIO2 3L
[2020-04-01] MEDS ORDERED: LEVOFLOXACIN 750 MG/D5W RTU 750 MG/150 ML RTUPB IV ONE (12:48)
[2020-04-01] MEDS ORDERED: ACETAMINOPHEN 325 MG TABLET PO PRN (15:17)
[2020-04-01] MEDS ORDERED: DEXTROSE 50%-WATER 25 GM/50 ML DISP.SYRIN IV PRN ×2 (15:27)
[2020-04-01] MEDS ORDERED: DEXTROSE 40% GEL 15 GM TUBE PO PRN ×2 (15:27)
[2020-04-01] MEDS ORDERED: GLUCAGON,HUMAN RECOMB 1 MG INJ IM PRN (15:27)
[2020-04-01] MEDS: INSULIN LISPRO 100 UNIT/ML 3 ML VIAL SUBCUT SCH ×2 (16:58→21:00)
[2020-04-01] MEDS: METHYLPREDNISOLONE INJ 40 MG/1 ML SDV IV SCH (16:59)
--- NOTE | 2020-04-01 17:05 | EKG REPORT ---
SEVERITY:- OTHERWISE NORMAL ECG - SINUS TACHYCARDIA : Confirmed by: Aldair Mariee 01-Apr-2020 17:05:07
--- NOTE | 2020-04-01 17:07 | PDOC H&P ---
History of Present Illness Admission Date/PCP: 04/01/20 13:56 SHERLYN CARTY MD Patient complains of: SOB History of Present Illness: FLORA CUELLAR is a 60 year old female, past medical history of COPD on 2 L of oxygen via nasal cannula at night, restless leg syndrome, anxiety depression, current smoker, who came in the ED today due to shortness of breath. She was admitted here at [facility] about a month ago for shortness of breath was treated as a COPD exacerbation, and was sent home after 5 days. She did well for about 2 weeks after discharge but then developed shortness of breath again not relieved by her usual inhalers she consulted Dr. Lowe's office and she was told that she needs to be on 40 mg of prednisone for 60 days and was also given a course of Levaquin. Her cough was about the same however she noted that there was a change in the color of her phlegm yesterday from regular whitish to greenish. However because of car issues she was unable to car pick up driver the medications until yesterday. Her shortness of breath continued despite taking the prescribed prednisone and Levaquin and she came to the ED. No recent travel, no recent immobilization, no recent exposure. Of note she is a current 1 to 2 cigarettes/day smoker and she has been smoking for more than 30 years. She denies any prior intubation secondary to COPD, and would have 1-2 exacerbations per year that would necessitate inpatient admission. In the emergency room she was noted to be tachypneic at 31, oxygen saturation 90% on 3 L of nasal cannula, blood pressure of 108/66, heart rate of 96. Chest x-ray did not show any acute abnormality. She was given duo nebs breathing treatments, was put on oxygen support via nasal cannula, and was given 1 dose of Levaquin. CBC showed a WBC count of 16.4, stable hemoglobin. CMP was unremarkable. Lactate no noted to be 2.2. She was then admitted to the medical floors for further evaluation and management Past Medical History Cardiac Medical History: Denies: Atrial Fibrillation, Coronary Artery Disease, DVT, Hyperlipidema, Hypertension, Pulmonary Embolism Pulmonary Medical History: Reports: Asthma, Bronchitis, Chronic Obstructive Pulmonary Disease (COPD), Respiratory Failure Denies: Intubation, Pneumonia, Sleep Apnea Neurological Medical History: Denies: Seizures Endocrine Medical History: Denies: Diabetes Mellitus Type 1, Diabetes Mellitus Type 2, Hyperthyroidism, Hypothyroidism Malignancy Medical History: Reports: Skin Cancer GI Medical History: Denies: Cirrhosis, Hepatitis Musculoskeltal Medical History: Reports: Other - Restless leg syndrome Denies: Arthritis, Fibromyalgia Skin Medical History: Denies: Eczema, Psoriasis Psychiatric Medical History: Reports: Depression, General Anxiety Disorder Hematology: Denies: Anemia, Bleeding Tendencies Past Surgical History Past Surgical History: Reports: Hysterectomy, Other - Bladder suspension, excision skin cancer Social History Smoking Status: Current Every Day Smoker Electronic Cigarette use?: No Frequency of Alcohol Use: Social - Patient reports 2-3 beers once or twice a week Hx Recreational Drug Use: Yes Drugs: Marijuana Hx Prescription Drug Abuse: No Family History Family History: CVA, DM, Other - Kidney disease. Significant history of alcoholism. Parental Family History Reviewed: Yes Children Family History Reviewed: Yes Sibling(s) Family History Reviewed.: Yes Medication/Allergy Home Medications: Albuterol Sulfate [Proair HFA Inhalation Aerosol 8.5 gm MDI] 2 puff IH Q4 PRN 02/20/20 Citalopram Hydrobromide [Celexa] 40 mg PO DAILY 02/20/20 Pramipexole Di-HCl [Mirapex] 0.125 mg PO QHS 02/20/20 Ipratropium/Albuterol Sulfate [Duoneb 3 ml Ampul] 3 ml NEB [id number] PRN 04/01/20 Levofloxacin [Levaquin 500 mg Tablet] 500 mg PO DAILY 04/01/20 Prednisone [Deltasone 20 mg Tablet] 20 mg PO BID 04/01/20 Allergies/Adverse Reactions: No Known Drug Allergies Allergy (Verified 02/20/20 01:33) Review of Systems Constitutional: ABSENT: fever(s), headache(s), night sweats Eyes: ABSENT: visual disturbances Ears: ABSENT: hearing changes Nose, Mouth, and Throat: ABSENT: sore throat Cardiovascular: PRESENT: dyspnea on exertion. ABSENT: chest pain Respiratory: PRESENT: cough, dyspnea Gastrointestinal: ABSENT: abdominal pain, bloating, coffee ground emesis Neurological: PRESENT: restless legs Psychiatric: ABSENT: hallucinations, suicidal ideation Hematologic/Lymphatic: ABSENT: easy bleeding Allergic/Immunologic: ABSENT: seasonal rhinorrhea Physical Exam Vital Signs: Temp Pulse Resp BP Pulse Ox 97.9 F 26 H 123/100 H 92 04/01/20 10:35 04/01/20 15:00 04/01/20 15:00 04/01/20 16:00 Intake & Output 03/31/20 04/01/20 04/02/20 06:59 06:59 06:59 Intake Total 350 Balance 350 Weight 71 kg General appearance: PRESENT: cooperative, mild distress Head exam: PRESENT: atraumatic, normocephalic Eye exam: PRESENT: EOMI, PERRLA Mouth exam: PRESENT: moist Neck exam: PRESENT: full ROM. ABSENT: JVD Respiratory exam: PRESENT: symmetrical, tachypnea, wheezes. ABSENT: rales, unlabored Cardiovascular exam: PRESENT: RRR, +S1, +S2 GI/Abdominal exam: PRESENT: normal bowel sounds Extremities exam: PRESENT: full ROM Musculoskeletal exam: PRESENT: full ROM Neurological exam: PRESENT: alert, awake, oriented to person, oriented to place, oriented to time, oriented to situation Psychiatric exam: PRESENT: normal mood Skin exam: PRESENT: normal color Results Laboratory Results: 04/01/20 10:30 04/01/20 10:30 04/01/20 04/01/20 04/01/20 10:30 10:30 10:30 WBC 16.0 H RBC 5.08 Hgb 16.1 H Hct 47.2 H MCV 93 MCH 31.7 MCHC 34.2 RDW 13.7 Plt Count 310 Seg Neutrophils % Not Reportable Carbonic Acid HCO3/H2CO3 Ratio ABG pH ABG pCO2 ABG pO2 ABG HCO3 ABG O2 Saturation ABG Base Excess FiO2 Sodium 137.9 Potassium 4.9 Chloride 103 Carbon Dioxide 23 Anion Gap 12 BUN 16 Creatinine 0.74 Est GFR ( Amer) > 60 Glucose 137 H Lactic Acid 2.2 H Calcium 9.3 Total Bilirubin 0.9 AST 34 Alkaline Phosphatase 77 Total Protein 7.2 Albumin 4.6 04/01/20 11:41 WBC RBC Hgb Hct MCV MCH MCHC RDW Plt Count Seg Neutrophils % Carbonic Acid 1.60 H HCO3/H2CO3 Ratio 15:1 ABG pH 7.30 L ABG pCO2 53.0 H ABG pO2 67.1 L ABG HCO3 25.2 H ABG O2 Saturation 91.1 L ABG Base Excess -2.2 FiO2 3L Sodium Potassium Chloride Carbon Dioxide Anion Gap BUN Creatinine Est GFR ( Amer) Glucose Lactic Acid Calcium Total Bilirubin AST Alkaline Phosphatase Total Protein Albumin 04/01/20 04/01/20 10:30 10:30 Troponin I 0.068 NT-Pro-B Natriuret Pep 325 H Impressions: Chest X-Ray 04/01/20 10:32 IMPRESSION: NO ACUTE RADIOGRAPHIC FINDING IN THE CHEST. Assessment and Plan - Diagnosis (1) Acute on chronic respiratory failure with hypoxia and hypercapnia Is this a current diagnosis for this admission?: Yes Plan: -Current everyday smoker, known COPD admitted for shortness of breath x1 week -Is her second admission this year for COPD exacerbation -O2 sat 90% on 3 L of nasal cannula -ABG: pH 7.3 PCO2 53, PO2 67, bicarb 25 Acute Respiratory Acidosis -This is likely secondary to COPD exacerbation -on duoneb scheduled - continue umec and salmeterol - IV steroids - O2 to keep sats between 89-92% (2) COPD exacerbation Is this a current diagnosis for this admission?: Yes Plan: - known COPD on 2L NC QHS at home - current everyday smoker - increased SOB and change in sputum character and amount - CXR no pneumonia - ABG respiratory acidosis - start on duoneb scheduled - IV steroids - levaquin - O2 support via NC to keep sats at just 89-92% - BIPAP as needed at night if she starts retaining more CO2, or becomes drowsy (3) COPD (chronic obstructive pulmonary disease) Qualifiers: COPD type: COPD with acute exacerbation Qualified Code(s): J44.1 - Chronic obstructive pulmonary disease with (acute) exacerbation Is this a current diagnosis for this admission?: Yes Plan: - current smoker 1-2 cig/day for >30 years - known COPD on 2L O2 NC at night - 1-2 exacerbations/year - GOLD COPD category C - On Anoro ellipta, proventil at home - continue inhalers - scheduled duoneb - levaquin PO for abx - O2 support to keep sats between 89-92% (4) Acute respiratory acidosis Is this a current diagnosis for this admission?: Yes Plan: ABG: pH 7.3 PCO2 53, PO2 67, bicarb 25 Acute Respiratory Acidosis - 2/2 to COPD exacerbation - duoneb, O2 spport - may need bipap at night if she becomes drowsy due to CO2 (5) Anxiety Is this a current diagnosis for this admission?: Yes Plan: - continue PRN ativan, trazodone and celexa (6) Tobacco use disorder Is this a current diagnosis for this admission?: Yes Plan: -1-2 cig/day for >30 years - interested in quitting - will start nicotine patch - outpatient she can trial varenecline with nicotine or buproprion - counseled to stop smoking (7) Restless leg syndrome Is this a current diagnosis for this admission?: Yes Plan: - on pramipexole (8) Leukocytosis Qualifiers: Leukocytosis type: unspecified Qualified Code(s): D72.829 - Elevated white blood cell count, unspecified Is this a current diagnosis for this admission?: Yes Plan: - likely due to steroids - Time Time Spent with patient: 25-34 minutes Smoking Cessation Education: over 10 minutes Medications reviewed and adjusted accordingly: Yes Anticipated Discharge Disposition: Home, Self Care Anticipated Discharge Timeframe: to be determined
[2020-04-01] MEDS ORDERED: UMECLIDINIUM BROMIDE 62.5 MCG/DOSE IH ONE (17:35)
[2020-04-01] MEDS ORDERED: SALMETEROL XINAFOATE DISKUS 50 MCG/1 DOSE 28 DOSE IH ONE (17:35)
[2020-04-01] MEDS ORDERED: BACLOFEN 10 MG TABLET PO ONE (18:00)
[2020-04-01] MEDS: SALMETEROL XINAFOATE DISKUS 50 MCG/1 DOSE 28 DOSE IH SCH (18:42)
[2020-04-01] MEDS: UMECLIDINIUM BROMIDE 62.5 MCG/DOSE IH SCH (18:43)
[2020-04-01] MEDS: LORAZEPAM 1 MG TABLET PO PRN (20:45)
[2020-04-01] MEDS: TRAZODONE HCL 50 MG TABLET PO SCH (21:00)
[2020-04-01] MEDS: HEPARIN SOD (PORCINE) 5,000 UNIT/ML 1 ML VIAL SUBCUT SCH (21:00)
[2020-04-01] MEDS ORDERED: PRAMIPEXOLE DI-HCL 0.25 MG TABLET ONE (21:13)
[2020-04-01] MEDS ORDERED: CITALOPRAM HYDROBROMIDE 20 MG TABLET PO SCH (22:00)
[2020-04-01] MEDS: CITALOPRAM HYDROBROMIDE 20 MG TABLET PO SCH (22:42)
[2020-04-01] MEDS: PRAMIPEXOLE DI-HCL 0.25 MG TABLET PO SCH (22:43)
[2020-04-02 04:26] LABS: ABSOLUTE LYMPHOCYTES (AUTO) 0.7 10^3/uL (0.5-4.7); ABSOLUTE MONOCYTES (AUTO) 0.4 10^3/uL (0.1-1.4); ABSOLUTE NEUT (AUTO) 7.9 10^3/uL (1.7-8.2); BASOPHILS % (AUTO) 0.4 % (0-2); HEMATOCRIT 42.6 % (36.0-47.0); HEMOGLOBIN 14.7 g/dL (12.0-15.5); LYMPHOCYTES % (AUTO) 7.8 % (13-45); MEAN CORPUSCULAR HEMOGLOBIN 31.8 pg (27.0-33.4); MEAN CORPUSCULAR HGB CONC 34.5 g/dL (32.0-36.0); MEAN CORPUSCULAR VOLUME 92 fl (80-97); PLATELET COUNT 253 10^3/uL (150-450); RED BLOOD COUNT 4.63 10^6/uL (3.72-5.28); RED CELL DISTRIBUTION WIDTH 13.5 % (11.5-14.0); SEGMENTED NEUTROPHILS % (AUTO) 87.8 % (42-78); TOTAL CELLS COUNTED % (AUTO) 100 %
[2020-04-02 04:44] LABS: ALKALINE PHOSPHATASE 64 U/L (38-126); ANION GAP 5 (5-19); ASPARTATE AMINO TRANSFERASE 31 U/L (14-36); BILIRUBIN,DIRECT 0.2 mg/dL (0.0-0.4); BILIRUBIN,TOTAL 0.6 mg/dL (0.2-1.3); BLOOD UREA NITROGEN 18 mg/dL (7-20); CALCIUM 9.1 mg/dL (8.4-10.2); CARBON DIOXIDE 26 mmol/L (22-30); CHLORIDE 103 mmol/L (98-107); GLUCOSE 149 mg/dL (75-110); POTASSIUM 4.7 mmol/L (3.6-5.0); TOTAL PROTEIN 6.4 g/dL (6.3-8.2)
[2020-04-02] MEDS: HEPARIN SOD (PORCINE) 5,000 UNIT/ML 1 ML VIAL SUBCUT SCH ×3 (05:08→21:50)
[2020-04-02] MEDS: IPRATROPIUM/ALBUTEROL 0.5-2.5 MG/3 ML AMPUL NEB SCH (07:56)
[2020-04-02] MEDS: INSULIN LISPRO 100 UNIT/ML 3 ML VIAL SUBCUT SCH ×4 (10:00→21:50)
[2020-04-02] MEDS: LEVOFLOXACIN 750 MG TABLET PO SCH (10:11)
[2020-04-02] MEDS: METHYLPREDNISOLONE INJ 40 MG/1 ML SDV IV SCH (10:12)
[2020-04-02] MEDS: DOCUSATE SODIUM 100 MG/10 ML UDC PO SCH (10:13)
[2020-04-02] MEDS: SALMETEROL XINAFOATE DISKUS 50 MCG/1 DOSE 28 DOSE IH SCH (10:13)
[2020-04-02] MEDS: LORAZEPAM 1 MG TABLET PO PRN ×2 (10:28→21:37)
[2020-04-02] MEDS: IPRATROPIUM/ALBUTEROL 0.5-2.5 MG/3 ML AMPUL NEB PRN (13:55)
[2020-04-02] MEDS: UMECLIDINIUM BROMIDE 62.5 MCG/DOSE IH SCH (17:05)
--- NOTE | 2020-04-02 17:43 | PDOC PROGRESS REPORT ---
Subjective Progress Note for:: 04/02/20 Subjective:: FLORA CUELLAR is a 60 year old female, past medical history of COPD on 2 L of oxygen via nasal cannula at night, restless leg syndrome, anxiety depression, current smoker, who came in the ED today due to shortness of breath. She was admitted here at [facility] about a month ago for shortness of breath was treated as a COPD exacerbation, and was sent home after 5 days. She did well for about 2 weeks after discharge but then developed shortness of breath again not relieved by her usual inhalers she consulted Dr. Lowe's office and she was told that she needs to be on 40 mg of prednisone for 60 days and was also given a course of Levaquin. Her cough was about the same however she noted that there was a change in the color of her phlegm yesterday from regular whitish to greenish. However because of car issues she was unable to turkey picker the medica tions until yesterday. Her shortness of breath continued despite taking the prescribed prednisone and Levaquin and she came to the ED. No recent travel, no recent immobilization, no recent exposure. Of note she is a current 1 to 2 cigarettes/day smoker and she has been smoking for more than 30 years. She denies any prior intubation secondary to COPD, and would have 1-2 exacerbations per year that would necessitate inpatient admission. In the emergency room she was noted to be tachypneic at 31, oxygen saturation 90% on 3 L of nasal cannula, blood pressure of 108/66, heart rate of 96. Chest x-ray did not show any acute abnormality. She was given duo nebs breathing treatments, was put on oxygen support via nasal cannula, and was given 1 dose of Levaquin. CBC showed a WBC count of 16.4, stable hemoglobin. CMP was unremarkable. Lactate no noted to be 2.2. She was then admitted to the medical floors for further evaluation and management. D2 hospital stay 04/02/20. She was seen adn examined at bedside. Still wheezing but she reports her breathing is much better. She complains of anxiety and requested that her celexa be scheduled at nighttime and to resume her home ativan dose. She is receiving IV steroids, PO levaquin and LABA/LAMA. Plan is to transition her to PO steroids tomorrow and possible discharge. Reason For Visit: COPD EXACERBATION Physical Exam Vital Signs: Temp Pulse Resp BP Pulse Ox 97.8 F 90 18 110/75 91 L 04/02/20 11:20 04/02/20 13:55 04/02/20 13:55 04/02/20 11:20 04/02/20 13:55 Intake & Output 04/01/20 04/02/20 04/03/20 06:59 06:59 06:59 Intake Total 1080 830 Balance 1080 830 Weight 72.4 kg 74.1 kg General appearance: PRESENT: no acute distress, cooperative Head exam: PRESENT: atraumatic, normocephalic Eye exam: PRESENT: EOMI, PERRLA Mouth exam: PRESENT: moist Neck exam: PRESENT: full ROM Respiratory exam: PRESENT: clear to auscultation cyndi, symmetrical, unlabored, wheezes. ABSENT: rales Cardiovascular exam: PRESENT: RRR, +S1, +S2 Pulses: PRESENT: normal radial pulses Vascular exam: PRESENT: normal capillary refill GI/Abdominal exam: PRESENT: normal bowel sounds, soft. ABSENT: rebound, tenderness Extremities exam: PRESENT: full ROM Musculoskeletal exam: PRESENT: full ROM Neurological exam: PRESENT: alert, awake, oriented to person, oriented to place, oriented to time, oriented to situation Psychiatric exam: PRESENT: normal mood Skin exam: PRESENT: normal color Results Laboratory Results: 04/02/20 04:07 04/02/20 04:07 04/01/20 04/02/20 04/02/20 13:06 04:07 04:07 WBC 9.0 RBC 4.63 Hgb 14.7 Hct 42.6 MCV 92 MCH 31.8 MCHC 34.5 RDW 13.5 Plt Count 253 Seg Neutrophils % 87.8 H Sodium 134.1 L Potassium 4.7 Chloride 103 Carbon Dioxide 26 Anion Gap 5 BUN 18 Creatinine 0.75 Est GFR ( Amer) > 60 Glucose 149 H Lactic Acid 1.7 Calcium 9.1 Total Bilirubin 0.6 AST 31 Alkaline Phosphatase 64 Total Protein 6.4 Albumin 4.0 04/01/20 04/01/20 10:30 10:30 Troponin I 0.068 NT-Pro-B Natriuret Pep 325 H Impressions: Chest X-Ray 04/01/20 10:32 IMPRESSION: NO ACUTE RADIOGRAPHIC FINDING IN THE CHEST. Assessment and Plan - Diagnosis (1) Acute on chronic respiratory failure with hypoxia and hypercapnia Is this a current diagnosis for this admission?: Yes Plan: -Current everyday smoker, known COPD admitted for shortness of breath x1 week -Is her second admission this year for COPD exacerbation -O2 sat 90% on 3 L of nasal cannula -ABG: pH 7.3 PCO2 53, PO2 67, bicarb 25 Acute Respiratory Acidosis -This is likely secondary to COPD exacerbation -on duoneb scheduled - continue umec and salmeterol - IV steroids, levaquin - O2 as needed ONLY to keep her sats 88-92% (2) COPD exacerbation Is this a current diagnosis for this admission?: Yes Plan: - known COPD on 2L NC QHS at home - current everyday smoker - increased SOB and change in sputum character and amount - CXR no pneumonia - ABG respiratory acidosis - start on duoneb scheduled - IV steroids - levaquin - O2 support via NC to keep sats at just 89-92% - BIPAP as needed at night if she starts retaining more CO2, or becomes drowsy (3) COPD (chronic obstructive pulmonary disease) Qualifiers: COPD type: COPD with acute exacerbation Qualified Code(s): J44.1 - Chronic obstructive pulmonary disease with (acute) exacerbation Is this a current diagnosis for this admission?: Yes Plan: - current smoker 1-2 cig/day for >30 years - known COPD on 2L O2 NC at night - 1-2 exacerbations/year - GOLD COPD category C - On Anoro ellipta, proventil at home - continue inhalers - scheduled duoneb - levaquin PO for abx - O2 support as needed to keep sats between 89-92% (4) Acute respiratory acidosis Is this a current diagnosis for this admission?: Yes Plan: ABG: pH 7.3 PCO2 53, PO2 67, bicarb 25 Acute Respiratory Acidosis - 2/2 to COPD exacerbation - duoneb, O2 support - may need bipap at night if she becomes drowsy due to CO2 (5) Anxiety Is this a current diagnosis for this admission?: Yes Plan: - continue PRN ativan, trazodone and celexa (6) Tobacco use disorder Is this a current diagnosis for this admission?: Yes Plan: -1-2 cig/day for >30 years - interested in quitting - will start nicotine patch - outpatient she can trial varenecline with nicotine or buproprion - counseled to stop smoking (7) Restless leg syndrome Is this a current diagnosis for this admission?: Yes Plan: - on pramipexole (8) Leukocytosis Qualifiers: Leukocytosis type: unspecified Qualified Code(s): D72.829 - Elevated white blood cell count, unspecified Is this a current diagnosis for this admission?: Yes Plan: - likely due to steroids - Time Time Spent with patient: 25-34 minutes Anticipated Discharge Disposition: Home, Self Care Anticipated Discharge Timeframe: within 48 hours
[2020-04-02] MEDS: PRAMIPEXOLE DI-HCL 0.25 MG TABLET PO SCH (21:37)
[2020-04-02] MEDS: TRAZODONE HCL 50 MG TABLET PO SCH (21:37)
[2020-04-02] MEDS: CITALOPRAM HYDROBROMIDE 20 MG TABLET PO SCH (21:37)
[2020-04-03] MEDS: IPRATROPIUM/ALBUTEROL 0.5-2.5 MG/3 ML AMPUL NEB PRN ×2 (01:46→07:54)
[2020-04-03] MEDS: GUAIFENESIN SYRP 200 MG/10 ML UDC PO PRN ×2 (03:37→12:41)
[2020-04-03 04:27] LABS: ABSOLUTE BASOPHILS # (AUTO) 0.1 10^3/uL (0.0-0.2); BASOPHILS % (AUTO) 0.5 % (0-2); HEMOGLOBIN 14.2 g/dL (12.0-15.5); RED CELL DISTRIBUTION WIDTH 13.8 % (11.5-14.0); TOTAL CELLS COUNTED % (AUTO) 100 %
[2020-04-03 04:55] LABS: ABSOLUTE LYMPHOCYTES (AUTO) 2.1 10^3/uL (0.5-4.7); ABSOLUTE NEUT (AUTO) 11.7 10^3/uL (1.7-8.2); HEMATOCRIT 42.3 % (36.0-47.0); LYMPHOCYTES % (AUTO) 14.2 % (13-45); MEAN CORPUSCULAR HEMOGLOBIN 31.2 pg (27.0-33.4); MEAN CORPUSCULAR HGB CONC 33.5 g/dL (32.0-36.0); MEAN CORPUSCULAR VOLUME 93 fl (80-97); MONOCYTES % (AUTO) 6.5 % (3-13); PLATELET COUNT 263 10^3/uL (150-450); RED BLOOD COUNT 4.54 10^6/uL (3.72-5.28); SEGMENTED NEUTROPHILS % (AUTO) 78.8 % (42-78); WHITE BLOOD COUNT 14.8 10^3/uL (4.0-10.5)
[2020-04-03] MEDS: INSULIN LISPRO 100 UNIT/ML 3 ML VIAL SUBCUT SCH ×2 (07:18→12:03)
[2020-04-03] MEDS: HEPARIN SOD (PORCINE) 5,000 UNIT/ML 1 ML VIAL SUBCUT SCH (07:28)
[2020-04-03] MEDS: LEVOFLOXACIN 750 MG TABLET PO SCH (08:59)
[2020-04-03] MEDS: DOCUSATE SODIUM 100 MG/10 ML UDC PO SCH (08:59)
[2020-04-03] MEDS: SALMETEROL XINAFOATE DISKUS 50 MCG/1 DOSE 28 DOSE IH SCH (08:59)
[2020-04-03] MEDS: METHYLPREDNISOLONE INJ 40 MG/1 ML SDV IV SCH (08:59)
[2020-04-03] MEDS: LORAZEPAM 1 MG TABLET PO PRN (12:41)
[2020-04-03 17:29] VITALS: BP 113/72
--- NOTE | 2020-04-03 21:41 | PDOC DISCHARGE SUMMARY ---
Impression - Admit/DC Date/PCP Admission Date/Primary Care Provider: 04/01/20 13:56 SHERLYN CARTY MD Discharge Date: 04/03/20 - Discharge Diagnosis (1) Acute on chronic respiratory failure with hypoxia and hypercapnia Is this a current diagnosis for this admission?: Yes (2) COPD exacerbation Is this a current diagnosis for this admission?: Yes (3) COPD (chronic obstructive pulmonary disease) Is this a current diagnosis for this admission?: Yes (4) Acute respiratory acidosis Is this a current diagnosis for this admission?: Yes (5) Anxiety Is this a current diagnosis for this admission?: Yes (6) Tobacco use disorder Is this a current diagnosis for this admission?: Yes (7) Restless leg syndrome Is this a current diagnosis for this admission?: Yes (8) Leukocytosis Is this a current diagnosis for this admission?: Yes - Additional Information Discharge Diet: As Tolerated Discharge Activity: Activity As Tolerated Referrals: SHERLYN CARTY MD [Primary Care Provider] - 04/10/20 10:15 am (AN OUTSTANDING BALANCE OF $6.00 MUST BE PAID AT TIME OF APPT.) Prescriptions: Lorazepam [Ativan 1 mg Tablet] 1 mg PO BIDP PRN 14 Days #14 tablet PRN Reason: Trazodone HCl [Desyrel 50 mg Tablet] 50 mg PO QHS 10 Days #10 tablet Home Medications: Albuterol Sulfate [Proair HFA Inhalation Aerosol 8.5 gm MDI] 2 puff IH Q4 PRN 02/20/20 Citalopram Hydrobromide [Celexa] 40 mg PO DAILY 02/20/20 Pramipexole Di-HCl [Mirapex] 0.125 mg PO QHS 02/20/20 Ipratropium/Albuterol Sulfate [Duoneb 3 ml Ampul] 3 ml NEB [id number] PRN 04/01/20 Levofloxacin [Levaquin 500 mg Tablet] 750 mg PO DAILY 5 Days #5 04/03/20 Lorazepam [Ativan 1 mg Tablet] 1 mg PO BIDP PRN 14 Days #14 tablet 04/03/20 Prednisone [Deltasone 20 mg Tablet] 40 mg PO DAILY 60 Days #0 04/03/20 Trazodone HCl [Desyrel 50 mg Tablet] 50 mg PO QHS 10 Days #10 tablet 04/03/20 History of Present Illiness History of Present Illness: FLORA CUELLAR is a 60 year old female, past medical history of COPD on 2 L of oxygen via nasal cannula at night, restless leg syndrome, anxiety depression, current smoker, who came in the ED today due to shortness of breath. She was a dmitted here at [facility] about a month ago for shortness of breath was treated as a COPD exacerbation, and was sent home after 5 days. She did well for about 2 weeks after discharge but then developed shortness of breath again not relieved by her usual inhalers she consulted Dr. Lowe's office and she was told that she needs to be on 40 mg of prednisone for 60 days and was also given a course of Levaquin. Her cough was about the same however she noted that there was a change in the color of her phlegm yesterday from regular whitish to greenish. However because of car issues she was unable to hand picker the medications until yesterday. Her shortness of breath continued despite taking the prescribed prednisone and Levaquin and she came to the ED. No recent travel, no recent immobilization, no recent exposure. Of note she is a current 1 to 2 cigarettes/day smoker and she has been smoking for more than 30 years. She denies any prior intubation secondary to COPD, and would have 1-2 exacerbations per year that would necessitate inpatient admission. In the emergency room she was noted to be tachypneic at 31, oxygen saturation 90% on 3 L of nasal cannula, blood pressure of 108/66, heart rate of 96. Chest x-ray did not show any acute abnormality. She was given duo nebs breathing treatments, was put on oxygen support via nasal cannula, and was given 1 dose of Levaquin. CBC showed a WBC count of 16.4, stable hemoglobin. CMP was unremarkable. Lactate no noted to be 2.2. She was then admitted to the medical floors for further evaluation and management Hospital Course Hospital Course: n the emergency room she was noted to be tachypneic at 31, oxygen saturation 90% on 3 L of nasal cannula, blood pressure of 108/66, heart rate of 96. Chest x- ray did not show any acute abnormality. She was given duo nebs breathing treatments, was put on oxygen support via nasal cannula, and was given 1 dose of Levaquin. CBC showed a WBC count of 16.4, stable hemoglobin. CMP was unremarkable. Lactate no noted to be 2.2. She was then admitted to the medical floors for further evaluation and management. D2 hospital stay 04/02/20. She was seen adn examined at bedside. Still wheezing but she reports her breathing is much better. She complains of anxiety and requested that her celexa be scheduled at nighttime and to resume her home ativan dose. She is receiving IV steroids, PO levaquin and LABA/LAMA. Plan is to transition her to PO steroids tomorrow and possible discharge. D3 hospital stay 04/03/20. She was seen and examined at bedside. Breathing has significantly improved with less wheezing. She wants to go home today. She was discharged on prednisone 40 mg which according to Dr. Lowe she would take for 2 months, discharged on Levaquin to be taken for 5 days, she is to resume using her usual inhalers. Advised to follow-up with primary care and prescription eyeglass maker. Physical Exam Vital Signs: Temp Pulse Resp BP Pulse Ox 98.0 F 102 H 20 106/52 L 93 04/03/20 13:44 04/03/20 13:44 04/03/20 13:44 04/03/20 13:44 04/03/20 13:44 Intake & Output 04/02/20 04/03/20 04/04/20 06:59 06:59 06:59 Intake Total 1080 1470 520 Balance 1080 1470 520 Weight 72.4 kg 74.1 kg General appearance: PRESENT: no acute distress, cooperative Head exam: PRESENT: atraumatic, normocephalic Eye exam: PRESENT: EOMI, PERRLA Mouth exam: PRESENT: moist Neck exam: PRESENT: full ROM Respiratory exam: PRESENT: clear to auscultation cyndi, symmetrical, unlabored, wheezes Pulses: PRESENT: +2 pedal pulses bilateral GI/Abdominal exam: PRESENT: normal bowel sounds, soft. ABSENT: rebound, tenderness Extremities exam: PRESENT: full ROM Musculoskeletal exam: PRESENT: full ROM Neurological exam: PRESENT: alert, awake, oriented to person, oriented to place, oriented to time, oriented to situation Psychiatric exam: PRESENT: normal mood Skin exam: PRESENT: normal color Results Laboratory Results: WBC 14.8 10^3/uL (4.0-10.5) H 04/03/20 04:07 RBC 4.54 10^6/uL (3.72-5.28) 04/03/20 04:07 Hgb 14.2 g/dL (12.0-15.5) 04/03/20 04:07 Hct 42.3 % (36.0-47.0) 04/03/20 04:07 MCV 93 fl (80-97) 04/03/20 04:07 MCH 31.2 pg (27.0-33.4) 04/03/20 04:07 MCHC 33.5 g/dL (32.0-36.0) 04/03/20 04:07 RDW 13.8 % (11.5-14.0) 04/03/20 04:07 Plt Count 263 10^3/uL (150-450) 04/03/20 04:07 Lymph % (Auto) 14.2 % (13-45) 04/03/20 04:07 [place] % (Auto) 6.5 % (3-13) 04/03/20 04:07 Eos % (Auto) 0.0 % (0-6) 04/03/20 04:07 Baso % (Auto) 0.5 % (0-2) 04/03/20 04:07 Absolute Neuts (auto) 11.7 10^3/uL (1.7-8.2) H 04/03/20 04:07 Absolute Lymphs (auto) 2.1 10^3/uL (0.5-4.7) 04/03/20 04:07 Absolute Monos (auto) 1.0 10^3/uL (0.1-1.4) 04/03/20 04:07 Absolute Eos (auto) 0.0 10^3/uL (0.0-0.6) 04/03/20 04:07 Absolute Basos (auto) 0.1 10^3/uL (0.0-0.2) 04/03/20 04:07 Total Counted 100 04/01/20 10:30 Seg Neutrophils % 78.8 % (42-78) H 04/03/20 04:07 Seg Neuts % (Manual) 94 % (42-78) H 04/01/20 10:30 Lymphocytes % (Manual) 6 % (13-45) L 04/01/20 10:30 Monocytes % (Manual) 0 % (3-13) L 04/01/20 10:30 Eosinophils % (Manual) 0 % (0-6) 04/01/20 10:30 Basophils % (Manual) 0 % (0-2) 04/01/20 10:30 Abs Neuts (Manual) 15.0 10^3/uL (1.7-8.2) H 04/01/20 10:30 Abs Lymphs (Manual) 1.0 10^3/uL (0.5-4.7) 04/01/20 10:30 Abs Monocytes (Manual) 0.0 10^3/uL (0.1-1.4) L 04/01/20 10:30 Absolute Eos (Manual) 0.0 10^3/uL (0.0-0.6) 04/01/20 10:30 Abs Basophils (Manual) 0.0 10^3/uL (0.0-0.2) 04/01/20 10:30 Platelet Comment ADEQUATE 04/01/20 10:30 RBC Morph Comment NORMO-CYTIC/CHROMIC 04/01/20 10:30 PT 12.7 SEC (11.4-15.4) 04/01/20 10:30 INR 0.93 04/01/20 10:30 Carbonic Acid 1.60 mmol/L (1.05-1.35) H 04/01/20 11:41 HCO3/H2CO3 Ratio 15:1 04/01/20 11:41 ABG pH 7.30 (7.35-7.45) L 04/01/20 11:41 ABG pCO2 53.0 mmHg (35-45) H 04/01/20 11:41 ABG pO2 67.1 mmHg (80-100) L 04/01/20 11:41 ABG HCO3 25.2 mmol/L (20-24) H 04/01/20 11:41 ABG Total CO2 26.8 mmol/L (21-25) H 04/01/20 11:41 ABG O2 Saturation 91.1 % (94-98) L 04/01/20 11:41 ABG Base Excess -2.2 mmol/L 04/01/20 11:41 FiO2 3L 04/01/20 11:41 Sodium 134.1 mmol/L (137-145) L 04/02/20 04:07 Potassium 4.7 mmol/L (3.6-5.0) 04/02/20 04:07 Chloride 103 mmol/L (98-107) 04/02/20 04:07 Carbon Dioxide 26 mmol/L (22-30) 04/02/20 04:07 Anion Gap 5 (5-19) 04/02/20 04:07 BUN 18 mg/dL (7-20) 04/02/20 04:07 Creatinine 0.75 mg/dL (0.52-1.25) 04/02/20 04:07 Est GFR ( Amer) > 60 (>60) 04/02/20 04:07 Est GFR (MDRD) Non-Af > 60 (>60) 04/02/20 04:07 Glucose 149 mg/dL (75-110) H 04/02/20 04:07 POC Glucose 112 mg/dL (70-110) H 04/03/20 11:30 Lactic Acid 1.7 mmol/L (0.7-2.1) 04/01/20 13:06 Calcium 9.1 mg/dL (8.4-10.2) 04/02/20 04:07 Total Bilirubin 0.6 mg/dL (0.2-1.3) 04/02/20 04:07 Direct Bilirubin 0.2 mg/dL (0.0-0.4) 04/02/20 04:07 Neonat Total Bilirubin Not Reportable 04/02/20 04:07 Neonat Direct Bilirubin Not Reportable 04/02/20 04:07 Neonat Indirect Bili Not Reportable 04/02/20 04:07 AST 31 U/L (14-36) 04/02/20 04:07 ALT 25 U/L (<35) 04/02/20 04:07 Alkaline Phosphatase 64 U/L (38-126) 04/02/20 04:07 Troponin I 0.068 ng/mL 04/01/20 10:30 NT-Pro-B Natriuret Pep 325 pg/mL (<125) H 04/01/20 10:30 Total Protein 6.4 g/dL (6.3-8.2) 04/02/20 04:07 Albumin 4.0 g/dL (3.5-5.0) 04/02/20 04:07 TSH 0.27 uIU/mL (0.47-4.68) L 04/01/20 10:30 04/01/20 04/01/20 10:30 10:30 Troponin I 0.068 NT-Pro-B Natriuret Pep 325 H Impressions: Chest X-Ray 04/01/20 10:32 IMPRESSION: NO ACUTE RADIOGRAPHIC FINDING IN THE CHEST. Plan Health Concerns: Smoking which I advised her to stop. Frequent COPD exacerbations Plan of Treatment: To new steroids for 60 days as advised by her prescription eyeglass maker. Continue Levaquin for 5 days. Continue inhalers. Time Spent: Greater than 30 Minutes Stroke Is this a Stroke Patient?: No Acute Heart Failure Is this a Heart Failure Patient?: No
[2020-04-04] MEDS ORDERED: DOCUSATE SODIUM 100 MG CAPSULE PO SCH (10:00)
== END 2020-04-03 14:50 | disposition home or self-care (01) | DRG 190 ==
LOC: ER 10:29 → EH 13:56 → 4S 17:47
PROVIDERS: ADMIT Internal Medicine; ATTEND Internal Medicine
DX: J44.1 Chronic obstructive pulmonary disease with (acute) exacerbation (principal); J96.21 Acute and chronic respiratory failure with hypoxia; J96.22 Acute and chronic respiratory failure with hypercapnia; G25.81 Restless legs syndrome; F32.9 Major depressive disorder, single episode, unspecified; F41.1 Generalized anxiety disorder; T38.0X5A Adverse effect of glucocorticoids and synthetic analogues, initial encounter; D72.829 Elevated white blood cell count, unspecified; Y92.9 Unspecified place or not applicable; F17.210 Nicotine dependence, cigarettes, uncomplicated; Z85.828 Personal history of other malignant neoplasm of skin; Z79.899 Other long term (current) drug therapy; Z79.52 Long term (current) use of systemic steroids; Z82.3 Family history of stroke; Z83.3 Family history of diabetes mellitus; Z84.1 Family history of disorders of kidney and ureter; Z81.1 Family history of alcohol abuse and dependence
CPT/HCPCS: 36415; 71045; 80053; 82803; 82962; 83605; 83880; 84443; 84484; 85025; 85610; 87040; 93005; 93010; 94640; 96365; 96366; 96368; 96375; 99291; J1956; J2060; J2920; J3475; J3490

== ENCOUNTER → 2020-04-17 | Outpatient (CLI) | payer MEDICARE, MEDICAID ==
--- NOTE | 2020-04-17 18:06 | WOMENS IMAGING REPORT ---
EXAM DESCRIPTION: BILAT SCREENING MAMMO W/CAD IMAGES COMPLETED DATE/TIME: 04/17/2020 12:50 pm REASON FOR STUDY: Z12.31 ENCOUNTER FOR SCREENING MAMMOGRAM FOR MALIGNANT NEOPLASM OF [id number] E NCNTR SCREEN MAMMOGRAM FOR MALIGNANT NEOPLASM OF NAE COMPARISON: The patient's prior examinations performed 5 years ago at an outside facility not availa ble. The patient is unsure of the location. EXAM PARAMETERS: Standard craniocaudal and mediolateral oblique views of each breast recorded using digital acquisition. Read with the assistance of CAD. .[facility] - [employer] Version 9.2 LIMITATIONS: None. FINDINGS: RIGHT BREAST MASSES: No suspicious masses. CALCIFICATIONS: No new or suspicious calcifications. ARCHITECTURAL DISTORTION: None. ASYMMETRY: None noted. OTHER: No other significant findings. LEFT BREAST MASSES: Small mass in the central breast, mid depth, best seen on the LCC view 7.2 cm from the nippl e. CALCIFICATIONS: No new or suspicious calcifications. ARCHITECTURAL DISTORTION: None. ASYMMETRY: None noted. OTHER: No other significant findings. IMPRESSION: 1. Small mass in the central Left breast. 0 Incomplete: Needs Additional Imaging Evaluation and/or prior Mammograms for Comparison. BREAST DENSITY: b. There are scattered areas of fibroglandular density. BIRAD: ASSESSMENT: 0 Incomplete: Needs Additional Imaging Evaluation and/or prior Mammograms for C omparison. RECOMMENDATION: 1. Special view mammogram Left breast: Digital tomosynthesis (preferable) or spot c ompression and true lateral views. Ultrasound if needed. The patient will be contacted for additional imaging. COMMENT: The patient has been notified of the results by letter per SA requirements. Additional no tification policies are in place for contacting patient with suspicious or incomplete findings. Quality ID #225: The [employer] recommends an annual screening mammogram for women aged 40 years or over. This facility utilizes a reminder system to ensure that all patients receive reminder letters, and/or direct phone calls for appointments. This includes reminders for routine scr eening mammograms, diagnostic mammograms, or other Breast Imaging Interventions when appropriate. Th is patient will be placed in the appropriate reminder system. TECHNICAL DOCUMENTATION: FINDING NUMBER: (1) ASSESSMENT: (1) JOB ID: [id number] 2010 [employer]- All Rights Reserved Reading location - IP/workstation name: [email or web address]
== END ==
LOC: WI 12:16
PROVIDERS: ATTEND Family Medicine
DX: Z12.31 Encounter for screening mammogram for malignant neoplasm of breast (principal); N63.42 Unspecified lump in left breast, subareolar
CPT/HCPCS: 77067

== ENCOUNTER → 2020-04-27 | Outpatient (CLI) | payer MEDICARE, MEDICAID ==
--- NOTE | 2020-04-27 11:52 | WOMENS IMAGING REPORT ---
EXAM DESCRIPTION: 3D DX MAMMO LEFT UNILAT; U/S BREAST UNILAT LIMITED IMAGES COMPLETED DATE/TIME: 04/27/2020 11:26 am; 04/27/2020 11:42 am REASON FOR STUDY: R92.2 INCONCLUSIVE MAMMOGRAM; R92.2 R92.2 INCONCLUSIVE MAMMOGRAM COMPARISON: 04/17/2020. EXAM PARAMETERS: True lateral, CC, and spot compression CC images acquired with tomosynthesis. LIMITATIONS: None. FINDINGS: BREAST LATERALITY: left MASSES: No suspicious masses. CALCIFICATIONS: No new or suspicious calcifications. ARCHITECTURAL DISTORTION: None. ASYMMETRY: None noted. OTHER: No other significant findings. BREAST ULTRASOUND: TECHNIQUE: Static and dynamic grayscale images acquired of the left breast in the specific areas of c linical/mammographic concern, 11 -1 o'clock location. Selected color Doppler images recorded. ELASTOGRAPHY PERFORMED: No. LIMITATIONS: None. FINDINGS: MASS: No mass identified. Normal glandular tissue. ELASTOGRAPHY CHARACTERISTICS:Not applicable. OTHER: No other significant finding. IMPRESSION: No mass or other worrisome mammographic or sonographic findings. BREAST DENSITY: b. There are scattered areas of fibroglandular density. BIRAD: ASSESSMENT: 1 Negative. RECOMMENDATION: RECOMMENDED FOLLOW UP: Birads 1 or 2: The patient should resume routine screening . SPECIFIC INTERVENTION/IMAGING/CONSULTATION RECOMMENDED:No additional intervention/ imaging/consultati on needed at this time. COMMUNICATION:The imaging findings were not discussed with the patient. Her referring provider has be en notified of the findings. COMMENT: The patient has been notified of the results by letter per SA requirements. Additional no tification policies are in place for contacting patient with suspicious or incomplete findings. Quality ID #225: The [employer] recommends an annual screening mammogram for women aged 40 years or over. This facility utilizes a reminder system to ensure that all patients receive reminder letters, and/or direct phone calls for appointments. This includes reminders for routine scr eening mammograms, diagnostic mammograms, or other Breast Imaging Interventions when appropriate. Th is patient will be placed in the appropriate reminder system. TECHNICAL DOCUMENTATION: FINDING NUMBER: (1) ASSESSMENT: (1) JOB ID: [id number] 2010 [employer]- All Rights Reserved Reading location - IP/workstation name: [email or web address]
--- NOTE | 2020-04-27 11:52 | WOMENS IMAGING REPORT ---
EXAM DESCRIPTION: 3D DX MAMMO LEFT UNILAT; U/S BREAST UNILAT LIMITED IMAGES COMPLETED DATE/TIME: 04/27/2020 11:26 am; 04/27/2020 11:42 am REASON FOR STUDY: R92.2 INCONCLUSIVE MAMMOGRAM; R92.2 R92.2 INCONCLUSIVE MAMMOGRAM COMPARISON: 04/17/2020. EXAM PARAMETERS: True lateral, CC, and spot compression CC images acquired with tomosynthesis. LIMITATIONS: None. FINDINGS: BREAST LATERALITY: left MASSES: No suspicious masses. CALCIFICATIONS: No new or suspicious calcifications. ARCHITECTURAL DISTORTION: None. ASYMMETRY: None noted. OTHER: No other significant findings. BREAST ULTRASOUND: TECHNIQUE: Static and dynamic grayscale images acquired of the left breast in the specific areas of c linical/mammographic concern, 11 -1 o'clock location. Selected color Doppler images recorded. ELASTOGRAPHY PERFORMED: No. LIMITATIONS: None. FINDINGS: MASS: No mass identified. Normal glandular tissue. ELASTOGRAPHY CHARACTERISTICS:Not applicable. OTHER: No other significant finding. IMPRESSION: No mass or other worrisome mammographic or sonographic findings. BREAST DENSITY: b. There are scattered areas of fibroglandular density. BIRAD: ASSESSMENT: 1 Negative. RECOMMENDATION: RECOMMENDED FOLLOW UP: Birads 1 or 2: The patient should resume routine screening . SPECIFIC INTERVENTION/IMAGING/CONSULTATION RECOMMENDED:No additional intervention/ imaging/consultati on needed at this time. COMMUNICATION:The imaging findings were not discussed with the patient. Her referring provider has be en notified of the findings. COMMENT: The patient has been notified of the results by letter per SA requirements. Additional no tification policies are in place for contacting patient with suspicious or incomplete findings. Quality ID #225: The [employer] recommends an annual screening mammogram for women aged 40 years or over. This facility utilizes a reminder system to ensure that all patients receive reminder letters, and/or direct phone calls for appointments. This includes reminders for routine scr eening mammograms, diagnostic mammograms, or other Breast Imaging Interventions when appropriate. Th is patient will be placed in the appropriate reminder system. TECHNICAL DOCUMENTATION: FINDING NUMBER: (1) ASSESSMENT: (1) JOB ID: [id number] 2010 [employer]- All Rights Reserved Reading location - IP/workstation name: [email or web address]
== END ==
LOC: WI 10:37
PROVIDERS: ATTEND Family Medicine
DX: R92.2 Inconclusive mammogram (principal)
CPT/HCPCS: 76642; 77065; G0279

== ENCOUNTER 2020-06-15 18:05 | Observation (INO) | payer MEDICARE, MEDICAID ==
[2020-06-15] MEDS ORDERED: LORAZEPAM INJ 2 MG/1 ML VIAL IV ONE ×2 (18:59→22:04)
[2020-06-15] MEDS ORDERED: IPRATROPIUM/ALBUTEROL 0.5-2.5 MG/3 ML AMPUL NEB ONE ×2 (19:02→19:03)
--- NOTE | 2020-06-15 19:07 | ER Document Report ---
ED Respiratory Problem - General Chief Complaint: Shortness Of Breath Stated Complaint: DIFFICULTY BREATHING Time Seen by Provider: 06/15/20 18:33 TRAVEL OUTSIDE OF THE [place] IN LAST 30 DAYS: No - HPI Notes: Patient is a 60-year-old female with a past medical history of COPD who wears 2 L of O2 at night and presents with shortness of breath. Patient states she has been short of breath for several days. She finished a Levaquin prescription by her PCP about 5 days ago for a URI and it did not help. She has been using her inhaler. Patient states that shortness of breath worsened today. Per EMS, she was 74% on room air and tripoding when they arrived. She received 125 mg of Solu-Medrol. They gave her 1 breathing treatment but patient had difficulty tolerating it. She states she gets very anxious. She denies any chest pain or shortness of breath. Patient states she was tested for Covid multiple times. The last time she was tested was 1 week ago. She denies any chest pain. No abdominal pain. She does mention some diarrhea. She also states she has had some urinary incontinence and thinks she has a UTI. - Related Data Allergies/Adverse Reactions: No Known Drug Allergies Allergy (Verified 06/15/20 18:15) Home Medications: escitalopram, flonase, trazadone, ativan prn, vistaril, mirapex Past Medical History - General Information source: Patient, Emergency Med Personnel - Social History Smoking Status: Current Every Day Smoker Chew tobacco use (# tins/day): No Frequency of alcohol use: Occasional Drug Abuse: None Family History: CVA, DM, Other - Kidney disease. Significant history of alcoholism. Patient has homicidal ideation: No - Past Medical History Cardiac Medical History: Denies: Hx Atrial Fibrillation, Hx Coronary Artery Disease, Hx DVT, Hx Hypercholesterolemia, Hx Hypertension, Hx Pulmonary Embolism Pulmonary Medical History: Reports: Hx Asthma, Hx Bronchitis, Hx COPD, Hx Respiratory Failure Denies: Hx Pneumonia, Hx Intubation, Hx Sleep Apnea Neurological Medical History: Denies: Hx Seizures Endocrine Medical History: Denies: Hx Diabetes Mellitus Type 1, Hx Diabetes Mellitus Type 2, Hx Hyperthyroidism, Hx Hypothyroidism Renal/ Medical History: Denies: Hx Peritoneal Dialysis Malignancy Medical History: Reports: Hx Skin Cancer GI Medical History: Denies: Hx Cirrhosis, Hx Hepatitis Musculoskeletal Medical History: Denies Hx Arthritis, Denies Hx Fibromyalgia Skin Medical History: Denies Hx Eczema, Denies Hx Psoriasis Psychiatric Medical History: Reports: Hx Depression Infectious Medical History: Denies: Hx Hepatitis Past Surgical History: Reports: Hx Hysterectomy, Other - Bladder suspension, excision skin cancer Review of Systems - Review of Systems Notes: CONSTITUTIONAL: No fever, fatigue or weight loss. SKIN: No rash. CARDIOVASCULAR: No chest pain or edema. RESPIRATORY: Positive for wheezing and shortness of breath. GASTROINTESTINAL: No abdominal pain, nausea, vomiting, bloody stools. Positive for diarrhea. GENITOURINARY: No dysuria. Positive for urinary dribbling. MUSCULOSKELETAL: No joint pain or swelling. NEUROLOGIC: No seizures. No headache, focal weakness or sensory changes. HEMATOLOGIC: No unusual bruising or bleeding. PSYCHIATRIC: No depression or anxiety. Physical Exam - Vital signs Vitals: Temp Resp BP Pulse Ox 98.1 F 44 H 136/85 H 87 L 06/15/20 18:08 06/15/20 18:08 06/15/20 18:08 06/15/20 18:08 - General General appearance: Anxious In distress: Mild Notes: VITAL SIGNS: Hypoxic on room air. Doing well on 4 L nasal cannula with O2 satu rations at 95%. GENERAL: Mild anxiety and distress. Non-toxic appearance. HEAD: Normal with no signs of head trauma. EYES: EOMI, conjunctiva normal, no discharge. EARS: Hearing grossly intact. NECK: Normal range of motion, no tenderness, supple, no lymphadenopathy, No adenopathy, no JVD. CHEST: Tight lung sounds bilaterally. CARDIAC: Regular rate and rhythm. VASCULAR: No Edema. ABDOMEN: Normal and soft with no tenderness, no masses. GENITOURINARY: Normal, No tenderness MUSCULOSKELETAL: Good range of motion of all major joints. Extremities without clubbing, cyanosis or edema. NEUROLOGICAL: Alert and oriented x 3. No focal sensory or strength deficits. Speech normal. Follows commands appropriately. PSYCHIATRIC: Normal Affect, judgement and mood. SKIN: Normal appearance with no rashes or lesions. Course - Re-evaluation Re-evalutation: 06/15/20 19:09 Patient is on 4 L nasal cannula. She states she feels better with the oxygen. I will attempt to do more breathing treatments. She will be given Ativan for anxiety. I will obtain work-up as above. Nurse informed me that patient again became tripoding, fatigued, and short of breath. I did order BiPAP. Patient is doing better on the BiPAP. On reevaluation, patient states she does not want to wear BiPAP anymore. We will take the BiPAP off and do a trial of 4 L nasal cannula. She is doing well. I did discuss with the hospitalist for admission for respiratory distress. Likely, this is a COPD exacerbation. Covid test is pending. Patient is very agreeable to the plan. 06/16/20 01:40 - Vital Signs Vital signs: Temp Pulse Resp BP Pulse Ox 98.1 F 19 111/76 94 06/15/20 21:13 06/16/20 01:01 06/16/20 01:01 06/16/20 01:01 - Laboratory Result Diagrams: 06/15/20 18:55 06/15/20 18:55 Laboratory results interpreted by me: 06/15/20 06/15/20 06/15/20 18:55 18:55 20:15 WBC 14.9 H Seg Neuts % (Manual) 92 H Band Neutrophils % 1 L Lymphocytes % (Manual) 6 L Monocytes % (Manual) 1 L Abs Neuts (Manual) 13.9 H Carbonic Acid 1.45 H ABG pH 7.32 L ABG pCO2 48.1 H ABG pO2 78.7 L ABG Total CO2 25.4 H Glucose 126 H Urine Protein Urine Blood 06/15/20 21:51 WBC Seg Neuts % (Manual) Band Neutrophils % Lymphocytes % (Manual) Monocytes % (Manual) Abs Neuts (Manual) Carbonic Acid ABG pH ABG pCO2 ABG pO2 ABG Total CO2 Glucose Urine Protein 100 H Urine Blood MODERATE H - EKG Interpretation by Me EKG shows normal: Sinus rhythm Rate: Normal Rhythm: NSR When compared to previous EKG there are: No significant change Additional EKG results interpreted by me: 06/16/20 01:41 Sinus rhythm at a rate of 93. QTc 508. No acute ST changes. No significant change from previous EKG. Critical Care Note - Critical Care Note Total time excluding time spent on procedures (mins): 35 Comments: Upon my evaluation, this patient had a high probability of imminent or life- threatening deterioration due to acute respiratory distress, which required my direct attention, intervention, and personal management. I have personally provided 35 minutes of critical care time. Time includes review of laboratory data, radiology results, discussion with consultants, and monitoring for potential decompensation. Interventions were performed as documented above. Discharge - Discharge Clinical Impression: Hypoxia, Acute respiratory distress Dyspnea Qualifiers: Dyspnea type: acute respiratory distress Qualified Code(s): R06.03 - Acute respiratory distress Condition: Stable Disposition: ADMITTED OBSERVATION Admitting Provider: Count Includes [facility] Unit Admitted: Medical Floor
[2020-06-15 19:29] LABS: ALBUMIN 4.2 g/dL (3.5-5.0); ALKALINE PHOSPHATASE 67 U/L (38-126); ANION GAP 9 (5-19); ASPARTATE AMINO TRANSFERASE 31 U/L (14-36); BILIRUBIN,DIRECT 0.1 mg/dL (0.0-0.4); BILIRUBIN,TOTAL 0.6 mg/dL (0.2-1.3); BLOOD UREA NITROGEN 11 mg/dL (7-20); CALCIUM 8.9 mg/dL (8.4-10.2); CARBON DIOXIDE 27 mmol/L (22-30); CHLORIDE 105 mmol/L (98-107); GLUCOSE 126 mg/dL (75-110); POTASSIUM 3.8 mmol/L (3.6-5.0)
--- NOTE | 2020-06-15 19:52 | RADIOLOGY REPORT (SQ) ---
EXAM DESCRIPTION: CHEST SINGLE VIEW IMAGES COMPLETED DATE/TIME: 06/15/2020 7:43 pm REASON FOR STUDY: SOB COMPARISON: 04/01/2020 EXAM PARAMETERS: NUMBER OF VIEWS: One view. TECHNIQUE: Single frontal radiographic view of the chest acquired. RADIATION DOSE: NA LIMITATIONS: None. FINDINGS: LUNGS AND PLEURA: No opacities, masses or pneumothorax. No pleural effusion. MEDIASTINUM AND HILAR STRUCTURES: No masses. Contour normal. HEART AND VASCULAR STRUCTURES: Heart normal in size. Normal vasculature. BONES: No acute findings. HARDWARE: None in the chest. OTHER: No other significant finding. IMPRESSION: NO ACUTE RADIOGRAPHIC FINDING IN THE CHEST. TECHNICAL DOCUMENTATION: JOB ID: [id number] 2010 [employer]- All Rights Reserved Reading location - IP/workstation name: [email or web address]
[2020-06-15 21:11] LABS: ARTERIAL BLOOD BASE EXCESS -2.6 mmol/L; ARTERIAL BLOOD FIO2 4L; ARTERIAL BLOOD H2CO3 1.45 mmol/L (1.05-1.35); ARTERIAL BLOOD HCO3 23.9 mmol/L (20-24); ARTERIAL BLOOD O2 SATURATION 94.6 % (94-98); ARTERIAL BLOOD PCO2 48.1 mmHg (35-45); ARTERIAL BLOOD PH 7.32 (7.35-7.45); ARTERIAL BLOOD PO2 78.7 mmHg (80-100); ARTERIAL BLOOD TOTAL CO2 25.4 mmol/L (21-25)
[2020-06-15 21:38] LABS: HEMOGLOBIN 14.8 g/dL (12.0-15.5); MEAN CORPUSCULAR HGB CONC 32.9 g/dL (32.0-36.0); MEAN CORPUSCULAR VOLUME 94 fl (80-97); PLATELET COUNT 380 10^3/uL (150-450); RED BLOOD COUNT 4.78 10^6/uL (3.72-5.28); RED CELL DISTRIBUTION WIDTH 13.7 % (11.5-14.0); WHITE BLOOD COUNT 14.9 10^3/uL (4.0-10.5)
[2020-06-15 21:58] LABS: ABSOLUTE LYMPHOCYTES# (MANUAL) 0.9 10^3/uL (0.5-4.7); ABSOLUTE MONOCYTES # (MANUAL) 0.1 10^3/uL (0.1-1.4); BAND NEUTROPHILS % (MANUAL) 1 % (3-5); BASOPHILS % (MANUAL) 0 % (0-2); EOSINOPHILS % (MANUAL) 0 % (0-6); LYMPHOCYTES % (MANUAL) 6 % (13-45); MONOCYTES % (MANUAL) 1 % (3-13); SEGMENTED NEUTROPHILS % (MAN) 92 % (42-78); TOTAL CELLS COUNTED 100
[2020-06-15 22:00] LABS: PLATELET COMMENT ADEQUATE; RBC MORPHOLOGY COMMENT NORMO-CYTIC/CHROMIC
[2020-06-15 22:27] LABS: APPEARANCE,URINE CLEAR; BILIRUBIN,URINE NEGATIVE (NEGATIVE); COLOR,URINE YELLOW; GLUCOSE, URINE NEGATIVE (NEGATIVE); KETONES,URINE NEGATIVE (NEGATIVE); LEUKOCYTE ESTERASE,URINE NEGATIVE (NEGATIVE); NITRITE,URINE NEGATIVE (NEGATIVE); PROTEIN,URINE 100 mg/dL (NEGATIVE); URINE SPECIFIC GRAVITY 1.021; UROBILINOGEN,URINE NEGATIVE mg/dL (<2.0)
[2020-06-15] MEDS ORDERED: IPRATROPIUM/ALBUTEROL 0.5-2.5 MG/3 ML AMPUL NEB PRN (23:52)
[2020-06-15] MEDS ORDERED: ACETAMINOPHEN 325 MG TABLET PO PRN (23:52)
[2020-06-15] MEDS ORDERED: ONDANSETRON HCL INJ/PF 4 MG/2 ML SDV IV PRN (23:52)
--- NOTE | 2020-06-16 00:33 | PDOC H&P ---
History of Present Illness Admission Date/PCP: SHIRLENE GRANGER DO Patient complains of: Shortness of breath History of Present Illness: FLORA CUELLAR is a 60 year old female with a history of COPD on nightly home oxygen presents with a 1 week duration of progressive worsening of shortness of breath. She states that she was seen by her primary care physician for symptoms of upper respiratory tract infection about a week ago and she completed 5 days course of Levaquin with no improvement. This morning the shortness of breath got really worse and she called EMS. Per EMS report, she was saturating 74% on room air and she was tripoding. She received a dose of Solu-Medrol and breathing treatment and was transferred to the ED. On arrival at the ED patient was saturating mid 90s on 4 L of intranasal oxygen. She states that she has a nonproductive cough which is worse than her baseline but denies fever, chills or any recent sick contact history. She states that she has been tested for COVID- 19 multiple times with the latest being a week ago and has been negative. She denies any chest pain, palpitation, dizziness, diarrhea, nausea or vomiting. Past Medical History Cardiac Medical History: Denies: Atrial Fibrillation, Coronary Artery Disease, DVT, Hyperlipidema, Hypertension, Pulmonary Embolism Pulmonary Medical History: Reports: Asthma, Bronchitis, Chronic Obstructive Pulm onary Disease (COPD), Respiratory Failure Denies: Intubation, Pneumonia, Sleep Apnea Neurological Medical History: Denies: Seizures Endocrine Medical History: Denies: Diabetes Mellitus Type 1, Diabetes Mellitus Type 2, Hyperthyroidism, Hypothyroidism Malignancy Medical History: Reports: Skin Cancer GI Medical History: Denies: Cirrhosis, Hepatitis Musculoskeltal Medical History: Denies: Arthritis, Fibromyalgia Skin Medical History: Denies: Eczema, Psoriasis Psychiatric Medical History: Reports: Depression Hematology: Denies: Anemia, Bleeding Tendencies Past Surgical History Past Surgical History: Reports: Hysterectomy, Other - Bladder suspension, excision skin cancer Social History Information Source: Patient Smoking Status: Current Every Day Smoker Electronic Cigarette use?: No Frequency of Alcohol Use: Occasional Hx Recreational Drug Use: Yes Drugs: Marijuana Hx Prescription Drug Abuse: No - Advance Directive Resuscitation Status: Full Code Family History Family History: Reviewed & Not Pertinent, CVA, DM, Other - Kidney disease. Significant history of alcoholism. Parental Family History Reviewed: Yes Children Family History Reviewed: Yes Sibling(s) Family History Reviewed.: Yes Medication/Allergy Home Medications: Albuterol Sulfate [Proair HFA Inhalation Aerosol 8.5 gm MDI] 2 puff IH Q4 PRN 02/20/20 Citalopram Hydrobromide [Celexa] 40 mg PO DAILY 02/20/20 Pramipexole Di-HCl [Mirapex] 0.125 mg PO QHS 02/20/20 Ipratropium/Albuterol Sulfate [Duoneb 3 ml Ampul] 3 ml NEB [id number] PRN 04/01/20 Levofloxacin [Levaquin 500 mg Tablet] 750 mg PO DAILY 5 Days #5 04/03/20 Lorazepam [Ativan 1 mg Tablet] 1 mg PO BIDP PRN 14 Days #14 tablet 04/03/20 Prednisone [Deltasone 20 mg Tablet] 40 mg PO DAILY 60 Days #0 04/03/20 Trazodone HCl [Desyrel 50 mg Tablet] 50 mg PO QHS 10 Days #10 tablet 04/03/20 Allergies/Adverse Reactions: No Known Drug Allergies Allergy (Verified 06/15/20 18:15) Review of Systems Constitutional: ABSENT: chills, fever(s), headache(s), weight gain, weight loss Eyes: ABSENT: visual disturbances Ears: ABSENT: hearing changes Nose, Mouth, and Throat: ABSENT: headache(s), mouth pain, sore throat Cardiovascular: PRESENT: as per HPI Respiratory: PRESENT: as per HPI Gastrointestinal: ABSENT: abdominal pain, constipation, diarrhea, hematemesis, hematochezia, nausea, vomiting Genitourinary: ABSENT: dysuria, hematuria Musculoskeletal: ABSENT: joint swelling Integumentary: ABSENT: rash, wounds Neurological: ABSENT: abnormal gait, abnormal speech, confusion, dizziness, focal weakness, syncope Psychiatric: ABSENT: anxiety, depression, homidical ideation, suicidal ideation Endocrine: ABSENT: cold intolerance, heat intolerance, polydipsia, polyuria Hematologic/Lymphatic: ABSENT: easy bleeding, easy bruising Physical Exam Vital Signs: Temp Pulse Resp BP Pulse Ox 98.1 F 20 110/68 96 06/15/20 21:13 06/15/20 23:01 06/15/20 23:01 06/15/20 23:01 Intake & Output 06/14/20 06/15/20 06/16/20 06:59 06:59 06:59 Weight 74.843 kg Additional comments: GENERAL APPEARANCE: Alert and oriented x3, in no acute distress HEENT: Normocephalic and atraumatic. No scleral icterus. Moist oral mucosa NECK: Supple. No lymphadenopathy or tenderness. No carotid bruit. No JVD CHEST: Symmetric. Nontender to palpation. LUNGS: Clear with good air entry bilaterally. Has diffuse wheezing bilaterally HEART: Regular rate and rhythm with normal S1 and S2. No murmurs, gallops, or rubs. ABDOMEN: Flat, soft, active bowel sounds, no direct or rebound tenderness. No organomegaly detected. No CVA tenderness EXTREMITIES: No cyanosis, clubbing, or edema. MUSCULOSKELETAL: No deformity, atrophy or swelling noted PSYCHIATRIC: Recent and remote memory is intact. Appropriate mood and affect. SKIN: Warm, dry, and well perfused. No lesions or rashes are noted. NEUROLOGIC: No focal sensory or motor deficits are noted. Results Laboratory Results: 06/15/20 18:55 06/15/20 18:55 06/15/20 06/15/20 06/15/20 18:55 18:55 20:15 WBC 14.9 H RBC 4.78 Hgb 14.8 Hct 45.0 MCV 94 MCH 31.0 MCHC 32.9 RDW 13.7 Plt Count 380 Seg Neutrophils % Not Reportable Carbonic Acid 1.45 H HCO3/H2CO3 Ratio 16:1 ABG pH 7.32 L ABG pCO2 48.1 H ABG pO2 78.7 L ABG HCO3 23.9 ABG O2 Saturation 94.6 ABG Base Excess -2.6 FiO2 4L Sodium 140.5 Potassium 3.8 Chloride 105 Carbon Dioxide 27 Anion Gap 9 BUN 11 Creatinine 0.79 Est GFR ( Amer) > 60 Glucose 126 H Lactic Acid Calcium 8.9 Total Bilirubin 0.6 AST 31 Alkaline Phosphatase 67 Total Protein 7.0 Albumin 4.2 Urine Color Urine Appearance Urine pH Ur Specific [place] Urine Protein Urine Glucose (UA) Urine Ketones Urine Blood Urine Nitrite Ur Leukocyte Esterase Urine WBC (Auto) Urine RBC (Auto) 06/15/20 06/15/20 21:51 22:04 WBC RBC Hgb Hct MCV MCH MCHC RDW Plt Count Seg Neutrophils % Carbonic Acid HCO3/H2CO3 Ratio ABG pH ABG pCO2 ABG pO2 ABG HCO3 ABG O2 Saturation ABG Base Excess FiO2 Sodium Potassium Chloride Carbon Dioxide Anion Gap BUN Creatinine Est GFR ( Amer) Glucose Lactic Acid 1.5 Calcium Total Bilirubin AST Alkaline Phosphatase Total Protein Albumin Urine Color YELLOW Urine Appearance CLEAR Urine pH 5.0 Ur Specific [place] 1.021 Urine Protein 100 H Urine Glucose (UA) NEGATIVE Urine Ketones NEGATIVE Urine Blood MODERATE H Urine Nitrite NEGATIVE Ur Leukocyte Esterase NEGATIVE Urine WBC (Auto) 1 Urine RBC (Auto) 2 06/15/20 18:55 Troponin I < 0.012 Impressions: Chest X-Ray 06/15/20 19:00 IMPRESSION: NO ACUTE RADIOGRAPHIC FINDING IN THE CHEST. Assessment and Plan - Diagnosis (1) Acute and chronic respiratory failure with hypoxia Is this a current diagnosis for this admission?: Yes Plan: Presented with progressive worsening of shortness of breath Has diffuse bilateral wheezing on physical exam Failed outpatient treatment for COPD exacerbation Oxygen saturation was 74% on room air when found by EMS ABG showed pH/PCO2/PO2=> 7.3 while on 4 L of intranasal oxygen Chest x-ray showed no acute findings Placed on Solu-Medrol 40 mg IV twice daily Continue breathing treatment with DuoNeb's Intranasal oxygen to be titrated with a target saturation of 88 to 92% (2) COPD exacerbation Is this a current diagnosis for this admission?: Yes Plan: Now admitted with acute on chronic hypoxic respiratory failure Has been tested for COVID-19 multiple times the latest being a week ago and was negative Failed outpatient treatment for COPD exacerbation by PCP Continue breathing treatment with DuoNeb Currently she is on a steroid with IV Solu-Medrol with the plan to switch to p.o. Continue ceftriaxone and doxycycline for now(patient completed a 5-day course of Levaquin 5 days back) Leukocytosis could be due to steroid given during transport by EMS Follow-up with blood culture Continue intranasal oxygen (3) Leukocytosis Qualifiers: Leukocytosis type: unspecified Qualified Code(s): D72.829 - Elevated white blood cell count, unspecified Is this a current diagnosis for this admission?: Yes Plan: Possibly due to steroid administration Currently on antibiotics Follow-up with blood culture (4) Anxiety Is this a current diagnosis for this admission?: Yes Plan: Continue home medications: Citalopram and trazodone - Time Time Spent with patient: 35 or more minutes Total Critical Time (Minutes): 40 Smoking Cessation Education: 3 to 10 minutes Medications reviewed and adjusted accordingly: Yes Anticipated Discharge Disposition: Home, Self Care Anticipated Discharge Timeframe: within 48 hours - Inpatient Certification Based on my medical assessment, after consideration of the patient's comorbidities, presenting symptoms, or acuity I expect that the services needed warrant INPATIENT care.: Yes I certify that my determination is in accordance with my understanding of Medicare's requirements for reasonable and necessary INPATIENT services [42 CFR 412.3e].: Yes Medical Necessity: Failure to Improve With Outpatient Therapy, Need Close Monitoring Due to Risk of Patient Decompensation, Need for Nebulizer Therapy and Monitoring of Response, Risk of Complication if Not Cared For in Hospital Post Hospital Care: D/C or Transfer Summary
[2020-06-16] MEDS ORDERED: METHYLPREDNISOLONE INJ 40 MG/1 ML SDV IV ONE (01:00)
[2020-06-16] MEDS: METHYLPREDNISOLONE INJ 40 MG/1 ML SDV IV SCH ×3 (01:07→22:08)
[2020-06-16] MEDS: DOXYCYCLINE HYCLATE 100 MG TABLET PO ONE ×2 (01:07→01:16)
[2020-06-16] MEDS: FAMOTIDINE 20 MG TABLET PO SCH ×4 (01:07→22:08)
[2020-06-16] MEDS ORDERED: CEFTRIAXONE 1 GM/D5W RTU 1 GM/50 ML RTUPB IV ONE (01:15)
--- NOTE | 2020-06-16 08:52 | EKG REPORT ---
SEVERITY:- BORDERLINE ECG - SINUS RHYTHM BORDERLINE PROLONGED QT INTERVAL : Confirmed by: Jacobo Forde MD 16-Jun-2020 08:52:00
[2020-06-16 09:21] LABS: HEMATOCRIT 40.5 % (36.0-47.0); HEMOGLOBIN 13.7 g/dL (12.0-15.5); MEAN CORPUSCULAR HEMOGLOBIN 31.1 pg (27.0-33.4); MEAN CORPUSCULAR HGB CONC 33.7 g/dL (32.0-36.0); MEAN CORPUSCULAR VOLUME 92 fl (80-97); PLATELET COUNT 327 10^3/uL (150-450); RED BLOOD COUNT 4.39 10^6/uL (3.72-5.28); RED CELL DISTRIBUTION WIDTH 13.5 % (11.5-14.0)
[2020-06-16] MEDS: ENOXAPARIN SODIUM INJ 40 MG/0.4 ML DISP.SYRIN SUBCUT SCH (09:49)
[2020-06-16] MEDS ORDERED: DOXYCYCLINE HYCLATE 100 MG TABLET PO SCH (10:00)
[2020-06-16] MEDS ORDERED: LORAZEPAM INJ 2 MG/1 ML VIAL IV ONE (10:45)
[2020-06-16] MEDS ORDERED: ALBUTEROL SULFATE HFA (90 MCG/PUFF) 8 GM MDI IH SCH (14:00)
[2020-06-16] MEDS: CETIRIZINE 10 MG TABLET PO SCH (15:42)
[2020-06-16] MEDS: ESCITALOPRAM OXALATE 10 MG TABLET PO SCH (15:42)
--- NOTE | 2020-06-16 15:47 | PDOC PROGRESS REPORT ---
Subjective Date:: 06/16/20 Subjective:: Patient is resting in bed without supplemental oxygen in place, she tells the nurse and myself that she is testing to see if she requires the oxygen. 90% O2 sat RA at rest. Reports overall significant improvement in symptoms since yesterday. Still wheezing on exam. Patient reports history of anxiety and requesting all home medications administered as soon as possible. She is current receiving IV steroids and breathing treatments. Patient tells me that she was treated with Levaquin by her primary care last dose 1 week ago. Reviewed patient's chart in detail. Patient with admissions to hospital secondary to COPD exacerbation 03/2020 and 02/2020. On both occasions she was treated with IV steroids and breathing treatments in the hospital and transition to p.o. steroids on discharge. She does not have oxygen at home. Her pbx wire chief is Dr. Lowe. Discussed with nursing. PT with minimally elevated HR at 106. Nursing tells me that patient became emotional prior to my seeing her and requested ativan for anxiety. Patient records reviewed, patient does not have ativan at home. Reason For Visit: ACUTE ON CHRONIC HYPOXIC RESPIRATORY FAILURE, Physical Exam Vital Signs: Temp Pulse Resp BP Pulse Ox 98.4 F 106 H 20 131/72 H 90 L 06/16/20 11:04 06/16/20 11:04 06/16/20 11:04 06/16/20 11:04 06/16/20 11:04 Intake & Output 06/15/20 06/16/20 06/17/20 06:59 06:59 06:59 Intake Total 570 Balance 570 Weight 73.8 kg General appearance: PRESENT: no acute distress, well-developed, well-nourished Head exam: PRESENT: atraumatic, normocephalic Eye exam: PRESENT: EOMI. ABSENT: scleral icterus Mouth exam: PRESENT: dry mucosa, tongue midline Neck exam: PRESENT: full ROM. ABSENT: JVD, lymphadenopathy, tenderness Respiratory exam: PRESENT: clear to auscultation cyndi, wheezes - diffuse wheezing bilaterally. ABSENT: rales, retraction, rhonchi, stridor, tachypnea Cardiovascular exam: PRESENT: +S1, +S2, tachycardia. ABSENT: diastolic murmur, systolic murmur Pulses: PRESENT: normal radial pulses GI/Abdominal exam: PRESENT: soft. ABSENT: tenderness Extremities exam: PRESENT: full ROM. ABSENT: pedal edema, tenderness Musculoskeletal exam: PRESENT: ambulatory, full ROM. ABSENT: deformity, dislocation Neurological exam: PRESENT: alert, awake, oriented to person, oriented to place, oriented to time, oriented to situation, CN II-XII grossly intact. ABSENT: altered, motor sensory deficit Psychiatric exam: PRESENT: anxious, unusual affect Focused psych exam: PRESENT: restlessness Skin exam: PRESENT: dry, intact, warm Results Laboratory Results: 06/16/20 08:58 06/15/20 18:55 06/15/20 06/15/20 06/15/20 18:55 18:55 20:15 WBC 14.9 H RBC 4.78 Hgb 14.8 Hct 45.0 MCV 94 MCH 31.0 MCHC 32.9 RDW 13.7 Plt Count 380 Seg Neutrophils % Not Reportable Carbonic Acid 1.45 H HCO3/H2CO3 Ratio 16:1 ABG pH 7.32 L ABG pCO2 48.1 H ABG pO2 78.7 L ABG HCO3 23.9 ABG O2 Saturation 94.6 ABG Base Excess -2.6 FiO2 4L Sodium 140.5 Potassium 3.8 Chloride 105 Carbon Dioxide 27 Anion Gap 9 BUN 11 Creatinine 0.79 Est GFR ( Amer) > 60 Glucose 126 H Lactic Acid Calcium 8.9 Total Bilirubin 0.6 AST 31 Alkaline Phosphatase 67 Total Protein 7.0 Albumin 4.2 Urine Color Urine Appearance Urine pH Ur Specific [place] Urine Protein Urine Glucose (UA) Urine Ketones Urine Blood Urine Nitrite Ur Leukocyte Esterase Urine WBC (Auto) Urine RBC (Auto) 06/15/20 06/15/20 06/16/20 21:51 22:04 08:58 WBC 14.0 H RBC 4.39 Hgb 13.7 Hct 40.5 MCV 92 MCH 31.1 MCHC 33.7 RDW 13.5 Plt Count 327 Seg Neutrophils % Carbonic Acid HCO3/H2CO3 Ratio ABG pH ABG pCO2 ABG pO2 ABG HCO3 ABG O2 Saturation ABG Base Excess FiO2 Sodium Potassium Chloride Carbon Dioxide Anion Gap BUN Creatinine Est GFR ( Amer) Glucose Lactic Acid 1.5 Calcium Total Bilirubin AST Alkaline Phosphatase Total Protein Albumin Urine Color YELLOW Urine Appearance CLEAR Urine pH 5.0 Ur Specific [place] 1.021 Urine Protein 100 H Urine Glucose (UA) NEGATIVE Urine Ketones NEGATIVE Urine Blood MODERATE H Urine Nitrite NEGATIVE Ur Leukocyte Esterase NEGATIVE Urine WBC (Auto) 1 Urine RBC (Auto) 2 06/15/20 18:55 Troponin I < 0.012 Impressions: Chest X-Ray 06/15/20 19:00 IMPRESSION: NO ACUTE RADIOGRAPHIC FINDING IN THE CHEST. Assessment and Plan - Diagnosis (1) Acute and chronic respiratory failure with hypoxia Is this a current diagnosis for this admission?: Yes Plan: Presented with progressive worsening of shortness of breath - Has improved with tx thus far - Diffuse wheezing on PE - pH/PCO2/PO2=> 7.3 while on 4 L of intranasal oxygen - Chest x-ray without acute findings - Continue Solu-Medrol 40 mg IV twice daily with plan to transition to prednisone tomorrow - Continue breathing treatment with DuoNeb's -Prior O2 saturation goal is 88 to 92%, currently at 90% on room air. (2) COPD exacerbation Is this a current diagnosis for this admission?: Yes Plan: Currently admitted with acute on chronic hypoxic respiratory failure - Failed outpatient treatment for COPD exacerbation by PCP (Levaquin and steroid burst, x1 week ago) - Prior admissions February and March for COPD exacerbation. - Gold COPD category C - On Anoro ellipta, proventil and duoneb (prn) at home, reports compliance - CVR without acute findings, discontinue Ceftriazone and doxy. - BC pending, if positive will initiate antibiotic therapy - Consider pulm consult vs close pulm follow up outpatient setting for further evaluation - Initiate Protonix 20mg daily due to recent/current steroid use - Tx as above #1 (3) Anxiety Is this a current diagnosis for this admission?: Yes Plan: Continue home medications: Citalopram and trazodone - Pt given single dose ativan for anxiety. (4) Leukocytosis Qualifiers: Leukocytosis type: unspecified Qualified Code(s): D72.829 - Elevated white blood cell count, unspecified Is this a current diagnosis for this admission?: Yes Plan: WBC 14.9 on initial presentation, 14.0 today - Without fever, chills, tachypnea - CXR without acute finding - Steroids given prior, likely cause - No clinical indication for levaquin at this time - Continue to monitor VS and WBC. (5) Tobacco use disorder Is this a current diagnosis for this admission?: Yes Plan: Patient current every day smoker. - Provided >3 minutes education and encouragement to quit smoking. - Nicotine patch provided. - Time Time Spent with patient: 35 or more minutes Smoking Cessation Education: 3 to 10 minutes Medications reviewed and adjusted accordingly: Yes Anticipated Discharge Disposition: Home, Self Care Anticipated Discharge Timeframe: within 24 hours
[2020-06-16] MEDS: FLUTICASONE NASAL SPRAY 50 MCG/SPRY 120 SPRAY/16 GM NASL SCH (18:08)
[2020-06-16] MEDS: ALBUTEROL SULFATE HFA (90 MCG/PUFF) 8 GM MDI IH SCH (18:10)
[2020-06-16] MEDS: NICOTINE 14 MG/24 HR PATCH.TD24 TD SCH (18:11)
[2020-06-16] MEDS: PANTOPRAZOLE SODIUM 20 MG TABLET.DR PO SCH (18:12)
[2020-06-16] MEDS: HYDROXYZINE HCL 10 MG TABLET PO PRN (18:13)
[2020-06-16] MEDS ORDERED: CEFTRIAXONE 1 GM/D5W RTU 1 GM/50 ML RTUPB IV SCH (22:00)
[2020-06-16] MEDS ORDERED: PRAMIPEXOLE DI HCL 0.125 MG PO SCH (22:00)
[2020-06-16] MEDS ORDERED: TRAZODONE HCL 50 MG TABLET PO SCH (22:00)
[2020-06-16] MEDS ORDERED: PRAMIPEXOLE DI-HCL 0.25 MG TABLET PO SCH (22:00)
[2020-06-17] MEDS: PANTOPRAZOLE SODIUM 20 MG TABLET.DR PO SCH (05:32)
[2020-06-17] MEDS: HYDROXYZINE HCL 10 MG TABLET PO PRN (08:36)
[2020-06-17 08:44] LABS: HEMATOCRIT 41.5 % (36.0-47.0); HEMOGLOBIN 13.7 g/dL (12.0-15.5); MEAN CORPUSCULAR HEMOGLOBIN 30.9 pg (27.0-33.4); MEAN CORPUSCULAR HGB CONC 33.1 g/dL (32.0-36.0); MEAN CORPUSCULAR VOLUME 93 fl (80-97); PLATELET COUNT 352 10^3/uL (150-450); RED BLOOD COUNT 4.45 10^6/uL (3.72-5.28); RED CELL DISTRIBUTION WIDTH 13.7 % (11.5-14.0); WHITE BLOOD COUNT 20.9 10^3/uL (4.0-10.5)
[2020-06-17 10:07] VITALS: BP 130/70
[2020-06-17] MEDS: METHYLPREDNISOLONE INJ 40 MG/1 ML SDV IV SCH (10:15)
[2020-06-17] MEDS: FAMOTIDINE 20 MG TABLET PO SCH (10:15)
[2020-06-17] MEDS: ESCITALOPRAM OXALATE 10 MG TABLET PO SCH (10:15)
[2020-06-17] MEDS: CETIRIZINE 10 MG TABLET PO SCH (10:15)
[2020-06-17] MEDS: ENOXAPARIN SODIUM INJ 40 MG/0.4 ML DISP.SYRIN SUBCUT SCH (10:15)
[2020-06-17] MEDS: NICOTINE 14 MG/24 HR PATCH.TD24 TD SCH (10:15)
[2020-06-17] MEDS: FLUTICASONE NASAL SPRAY 50 MCG/SPRY 120 SPRAY/16 GM NASL SCH (10:16)
[2020-06-17] MEDS: ALBUTEROL SULFATE HFA (90 MCG/PUFF) 8 GM MDI IH SCH (10:17)
--- NOTE | 2020-06-17 18:16 | PDOC DISCHARGE SUMMARY ---
Impression - Admit/DC Date/PCP Admission Date/Primary Care Provider: 06/16/20 00:23 SHIRLENE GRANGER DO Discharge Date: 06/17/20 - Discharge Diagnosis (1) Acute and chronic respiratory failure with hypoxia Is this a current diagnosis for this admission?: Yes (2) COPD exacerbation Is this a current diagnosis for this admission?: Yes (3) Anxiety Is this a current diagnosis for this admission?: Yes (4) Leukocytosis Is this a current diagnosis for this admission?: Yes (5) Tobacco use disorder Is this a current diagnosis for this admission?: Yes - Additional Information Resuscitation Status: Full Code Discharge Diet: As Tolerated Discharge Activity: Activity As Tolerated Referrals: SHIRLENE GRANGER DO [Primary Care Provider] - 06/22/20 9:30 am ZION AGUSTIN MD [ACTIVE STAFF] - Prescriptions: Prednisone [Deltasone 20 mg Tablet] 40 mg PO DAILY 3 Days #6 tablet Pantoprazole Sodium [Protonix [address] Tablet] 20 mg PO QAM #30 tablet. Home Medications: Pramipexole Di-HCl [Mirapex] 0.125 mg PO QHS 02/20/20 Ipratropium/Albuterol Sulfate [Duoneb 3 ml Ampul] 3 ml NEB [id number] PRN 04/01/20 Trazodone HCl [Desyrel 50 mg Tablet] 50 mg PO QHS 10 Days #10 tablet 04/03/20 Albuterol Sulfate [Ventolin Hfa 8 gm Mdi] 2 puff IH DAILY 06/16/20 Cetirizine HCl [Zyrtec 10 mg Tablet] 10 mg PO DAILY 06/16/20 Escitalopram Oxalate [Lexapro 10 mg Tablet] 20 mg PO DAILY 06/16/20 Fluticasone Propionate [Flonase Nasal [place] 50 Mcg/[place] 16 gm] 1 spray NASL DAILY 06/16/20 Fluticasone/Umeclidin/Vilanter [Trelegy 100-62.5-25 Mcg Ellipta 14 Dose/Dpi] 1 puff PO DAILY 06/16/20 Hydroxyzine HCl [Atarax 10 mg Tablet] 10 mg PO TID PRN 06/16/20 Pantoprazole Sodium [Protonix [address] Tablet] 20 mg PO QAM #30 tablet. 06/17/20 Prednisone [Deltasone 20 mg Tablet] 40 mg PO DAILY 3 Days #6 tablet 06/17/20 History of Present Illiness History of Present Illness: As per admitting provider "FLORA CUELLAR is a 60 year old female with a history of COPD on nightly home oxygen presents with a 1 week duration of progressive worsening of shortness of breath. She states that she was seen by her primary care physician for symptoms of upper respiratory tract infection about a week ago and she completed 5 days course of Levaquin with no impr ovement. This morning the shortness of breath got really worse and she called EMS. Per EMS report, she was saturating 74% on room air and she was tripoding. She received a dose of Solu-Medrol and breathing treatment and was transferred to the ED. On arrival at the ED patient was saturating mid 90s on 4 L of intranasal oxygen. She states that she has a nonproductive cough which is worse than her baseline but denies fever, chills or any recent sick contact history. She states that she has been tested for COVID-19 multiple times with the latest being a week ago and has been negative. She denies any chest pain, palpitation, dizziness, diarrhea, nausea or vomiting." Hospital Course Hospital Course: Acute and chronic respiratory failure with hypoxia Presented with progressive worsening of shortness of breath - Maintaining appropriate O2 sat on RA. - Chest x-ray without acute findings - Solu-Medrol 40 mg IV twice daily transitioned to Prednisone 40mg PO. - Continue breathing treatment with DuoNeb's at home COPD exacerbation With ARF. - Failed outpatient treatment for COPD exacerbation by PCP (Levaquin and steroid burst, x1 week ago) - Prior admissions February and March for COPD exacerbation. - Gold COPD category C - On Anoro ellipta, proventil and duoneb (prn) at home, reports compliance - CVR without acute findings, discontinue Ceftriazone and doxy. - BC without growth - Initiate Protonix 20mg daily due to recent/current steroid use - Tx as above #1 - F/u with pulm outpatient Anxiety Continue home medications: Citalopram and trazodone - Pt given single dose ativan for anxiety. Leukocytosis WBC 14.9 on initial presentation, 14.0 today - Without fever, chills, tachypnea - CXR without acute finding - Steroids given prior, likely cause - No clinical indication for levaquin at this time Tobacco use disorder Patient current every day smoker. - Provided >3 minutes education and encouragement to quit smoking. - Nicotine patch provided. Physical Exam Vital Signs: Temp Pulse Resp BP Pulse Ox 97.7 F 88 18 130/70 H 93 06/17/20 10:06 06/17/20 10:06 06/17/20 10:06 06/17/20 10:06 06/17/20 10:06 Intake & Output 06/16/20 06/17/20 06/18/20 06:59 06:59 06:59 Intake Total 570 610 Balance 570 610 Weight 73.8 kg 77.6 kg Additional comments: General appearance: PRESENT: no acute distress, well-developed, well-nourished Neck exam: PRESENT: full ROM. Respiratory exam: PRESENT: clear to auscultation cyndi, wheezes - diffuse wheezing bilaterally, significantly improved from yesterday, with good air movement today. ABSENT: rales, retraction, rhonchi, stridor, tachypnea Cardiovascular exam: PRESENT: +S1, +S2, tachycardia. ABSENT: diastolic murmur, systolic murmur Extremities exam: PRESENT: full ROM. ABSENT: pedal edema, tenderness Musculoskeletal exam: PRESENT: ambulatory, full ROM. ABSENT: deformity, dislocation Neurological exam: PRESENT: alert, awake, oriented to person, oriented to place, oriented to time, oriented to situation, CN II-XII grossly intact. ABSENT: altered, motor sensory deficit Psychiatric exam: PRESENT: anxious, unusual affect Focused psych exam: PRESENT: restlessness Skin exam: PRESENT: dry, intact, warm Results Laboratory Results: WBC 20.9 10^3/uL (4.0-10.5) H 06/17/20 08:30 RBC 4.45 10^6/uL (3.72-5.28) 06/17/20 08:30 Hgb 13.7 g/dL (12.0-15.5) 06/17/20 08:30 Hct 41.5 % (36.0-47.0) 06/17/20 08:30 MCV 93 fl (80-97) 06/17/20 08:30 MCH 30.9 pg (27.0-33.4) 06/17/20 08:30 MCHC 33.1 g/dL (32.0-36.0) 06/17/20 08:30 RDW 13.7 % (11.5-14.0) 06/17/20 08:30 Plt Count 352 10^3/uL (150-450) 06/17/20 08:30 Lymph % (Auto) Not Reportable 06/15/20 18:55 [place] % (Auto) Not Reportable 06/15/20 18:55 Eos % (Auto) Not Reportable 06/15/20 18:55 Baso % (Auto) Not Reportable 06/15/20 18:55 Absolute Neuts (auto) Not Reportable 06/15/20 18:55 Absolute Lymphs (auto) Not Reportable 06/15/20 18:55 Absolute Monos (auto) Not Reportable 06/15/20 18:55 Absolute Eos (auto) Not Reportable 06/15/20 18:55 Absolute Basos (auto) Not Reportable 06/15/20 18:55 Total Counted 100 06/15/20 18:55 Seg Neutrophils % Not Reportable 06/15/20 18:55 Seg Neuts % (Manual) 92 % (42-78) H 06/15/20 18:55 Band Neutrophils % 1 % (3-5) L 06/15/20 18:55 Lymphocytes % (Manual) 6 % (13-45) L 06/15/20 18:55 Monocytes % (Manual) 1 % (3-13) L 06/15/20 18:55 Eosinophils % (Manual) 0 % (0-6) 06/15/20 18:55 Basophils % (Manual) 0 % (0-2) 06/15/20 18:55 Abs Neuts (Manual) 13.9 10^3/uL (1.7-8.2) H 06/15/20 18:55 Abs Lymphs (Manual) 0.9 10^3/uL (0.5-4.7) 06/15/20 18:55 Abs Monocytes (Manual) 0.1 10^3/uL (0.1-1.4) 06/15/20 18:55 Absolute Eos (Manual) 0.0 10^3/uL (0.0-0.6) 06/15/20 18:55 Abs Basophils (Manual) 0.0 10^3/uL (0.0-0.2) 06/15/20 18:55 Platelet Comment ADEQUATE 06/15/20 18:55 RBC Morph Comment NORMO-CYTIC/CHROMIC 06/15/20 18:55 Carbonic Acid 1.45 mmol/L (1.05-1.35) H 06/15/20 20:15 HCO3/H2CO3 Ratio 16:1 06/15/20 20:15 ABG pH 7.32 (7.35-7.45) L 06/15/20 20:15 ABG pCO2 48.1 mmHg (35-45) H 06/15/20 20:15 ABG pO2 78.7 mmHg (80-100) L 06/15/20 20:15 ABG HCO3 23.9 mmol/L (20-24) 06/15/20 20:15 ABG Total CO2 25.4 mmol/L (21-25) H 06/15/20 20:15 ABG O2 Saturation 94.6 % (94-98) 06/15/20 20:15 ABG Base Excess -2.6 mmol/L 06/15/20 20:15 FiO2 4L 06/15/20 20:15 Sodium 140.5 mmol/L (137-145) 06/15/20 18:55 Potassium 3.8 mmol/L (3.6-5.0) 06/15/20 18:55 Chloride 105 mmol/L (98-107) 06/15/20 18:55 Carbon Dioxide 27 mmol/L (22-30) 06/15/20 18:55 Anion Gap 9 (5-19) 06/15/20 18:55 BUN 11 mg/dL (7-20) 06/15/20 18:55 Creatinine 0.79 mg/dL (0.52-1.25) 06/15/20 18:55 Est GFR ( Amer) > 60 (>60) 06/15/20 18:55 Est GFR (MDRD) Non-Af > 60 (>60) 06/15/20 18:55 Glucose 126 mg/dL (75-110) H 06/15/20 18:55 Lactic Acid 1.5 mmol/L (0.7-2.1) 06/15/20 22:04 Calcium 8.9 mg/dL (8.4-10.2) 06/15/20 18:55 Total Bilirubin 0.6 mg/dL (0.2-1.3) 06/15/20 18:55 Direct Bilirubin 0.1 mg/dL (0.0-0.4) 06/15/20 18:55 Neonat Total Bilirubin Not Reportable 06/15/20 18:55 Neonat Direct Bilirubin Not Reportable 06/15/20 18:55 Neonat Indirect Bili Not Reportable 06/15/20 18:55 AST 31 U/L (14-36) 06/15/20 18:55 ALT 22 U/L (<35) 06/15/20 18:55 Alkaline Phosphatase 67 U/L (38-126) 06/15/20 18:55 Troponin I < 0.012 ng/mL 06/15/20 18:55 Total Protein 7.0 g/dL (6.3-8.2) 06/15/20 18:55 Albumin 4.2 g/dL (3.5-5.0) 06/15/20 18:55 Urine Color YELLOW 06/15/20 21:51 Urine Appearance CLEAR 06/15/20 21:51 Urine pH 5.0 (5.0-9.0) 06/15/20 21:51 Ur Specific [place] 1.021 06/15/20 21:51 Urine Protein 100 mg/dL (NEGATIVE) H 06/15/20 21:51 Urine Glucose (UA) NEGATIVE mg/dL (NEGATIVE) 06/15/20 21:51 Urine Ketones NEGATIVE mg/dL (NEGATIVE) 06/15/20 21:51 Urine Blood MODERATE (NEGATIVE) H 06/15/20 21:51 Urine Nitrite NEGATIVE (NEGATIVE) 06/15/20 21:51 Urine Bilirubin NEGATIVE (NEGATIVE) 06/15/20 21:51 Urine Urobilinogen NEGATIVE mg/dL (<2.0) 06/15/20 21:51 Ur Leukocyte Esterase NEGATIVE (NEGATIVE) 06/15/20 21:51 Urine WBC (Auto) 1 /HPF 06/15/20 21:51 Urine RBC (Auto) 2 /HPF 06/15/20 21:51 U Hyaline Cast (Auto) 1 /LPF 06/15/20 21:51 Squamous Epi Cells Auto 1 /HPF 06/15/20 21:51 Urine Mucus (Auto) RARE /LPF 06/15/20 21:51 Urine Ascorbic Acid NEGATIVE (NEGATIVE) 06/15/20 21:51 COVID-19 Source Cancelled 06/15/20 21:25 COVID-19 (OBED) Cancelled 06/15/20 21:25 Influenza A (RT-PCR) NEGATIVE (NEGATIVE) 06/16/20 21:25 Influenza B (RT-PCR) NEGATIVE (NEGATIVE) 06/16/20 21:25 RSV (RT-PCR) NEGATIVE (NEGATIVE) 06/16/20 21:25 SARS-CoV-2 Rap RNA(RT-PCR) NEGATIVE (NEGATIVE) 06/16/20 21:25 06/15/20 18:55 Troponin I < 0.012 Impressions: Chest X-Ray 06/15/20 19:00 IMPRESSION: NO ACUTE RADIOGRAPHIC FINDING IN THE CHEST. Plan Health Concerns: Tx for COPD exacerbation x3 times since February. Plan of Treatment: 1. Your shortness of breath is from an exacerbation of your chronic COPD. He received 2 days of intravenous steroids for this. I have written a prescription for prednisone 40 mg once daily for 3 days. Start your prednisone tomorrow 06/18/2020. -Please do not smoke cigarettes. -Please follow-up with your secondary education professor. 2. I have given you a prescription for Protonix 20 mg daily. This is a medication that will help with your acid reflux. Time Spent: Greater than 30 Minutes Stroke Is this a Stroke Patient?: No Acute Heart Failure Is this a Heart Failure Patient?: No
== END 2020-06-17 10:55 | disposition home or self-care (01) ==
LOC: ER 18:05 → EH 06-16 00:23 → 4S 06-16 02:05
PROVIDERS: ADMIT Student in an Organized Health Care Education/Training Program; ATTEND Physician Assistant
DX: J96.21 Acute and chronic respiratory failure with hypoxia (principal); J44.1 Chronic obstructive pulmonary disease with (acute) exacerbation; F41.9 Anxiety disorder, unspecified; D72.829 Elevated white blood cell count, unspecified; F17.200 Nicotine dependence, unspecified, uncomplicated; Z79.899 Other long term (current) drug therapy; Z99.81 Dependence on supplemental oxygen; Z20.828 Contact with and (suspected) exposure to other viral communicable diseases
CPT/HCPCS: 93005; 94640 ×2; 99285; 96374; 96375; 36415 ×3; 87040; 82803; 83605; 85025; 85027 ×2; 0241U ×4; 87070; 87077; 81001; 84484; 71045; 93010; 94660 ×2; G0378 ×3; U0003; A9270 ×15; J2920 ×2; J1650 ×2; J2060 ×2; J0696; C9803; 87635; J3490